=== PATIENT | female | born 1985 | race Caucasian/White ===

== ENCOUNTER → 2023-04-20 | Outpatient (OUT) | payer MEDICAID, SELFPAY | PROVIDERS: PCP Nurse Practitioner; Visit Provider Nurse Practitioner | DX: G47.33 Obstructive sleep apnea (adult) (pediatric) (principal) | CPT/HCPCS: 95810 ==

== ENCOUNTER 2023-05-19 20:47 | Outpatient (OUT) | payer MEDICAID, SELFPAY | END 2023-05-19 20:48 | disposition home or self-care (01) | LOC: SLEEP 20:48 | PROVIDERS: PCP Nurse Practitioner; Visit Provider Nurse Practitioner | DX: G47.33 Obstructive sleep apnea (adult) (pediatric) (principal) | CPT/HCPCS: 95811 ==

== ENCOUNTER 2024-04-05 10:19 | Outpatient (OUT) | payer OTHER, MEDICAID, SELFPAY ==
[2024-04-05 10:38] LABS: Bilirubin Urine NEGATIVE (NEGATIVE); Blood Urine SMALL (NEGATIVE); Clarity Urine CLEAR (CLEAR); Color Urine YELLOW (YELLOW); Glucose Urine UA NEGATIVE (NEGATIVE); Ketones Urine NEGATIVE (NEGATIVE); Leukocyte Esterase Urine NEGATIVE (NEGATIVE); Nitrite Urine NEGATIVE (NEGATIVE); Protein Urine NEGATIVE (NEG/TRACE); Specific Gravity Urine >=1.030 (1.005-1.025); Urine Microscopic Indicated YES; Urobilinogen Urine 0.2 EU/dL (0.2-1.0); pH Urine 5.5 (5.0-9.0)
[2024-04-05 10:42] LABS: Basophils Percent Auto 0.8 % (0.2-2.0); Eosinophils Absolute Auto 0.1 10^3/uL (0.0-0.7); Eosinophils Percent Auto 2.2 % (0.9-7.0); Hemoglobin 12.9 g/dL (12.0-16.0); Immature Granulocytes Abs Auto 0.01 10^3/uL (0.00-0.03); Immature Granulocytes Pct Auto 0.2 % (0.0-0.5); Lymphocytes Absolute Auto 2.1 10^3/uL (1.2-3.8); Lymphocytes Percent Auto 42.4 % (20.5-60.0); Mean Corpuscular HGB Conc 33.9 g/dL (29.9-35.2); Mean Corpuscular Hemoglobin 29.7 pg (26.7-34.0); Mean Corpuscular Volume 87.4 fL (81.0-99.0); Mean Platelet Volume 9.5 fL (9.5-13.5); Monocytes Absolute Auto 0.5 10^3/uL (0.3-0.8); Monocytes Percent Auto 10.8 % (1.7-12.0); Neutrophils Absolute Auto 2.1 10^3/uL (1.4-6.5); Neutrophils Percent Auto 43.6 % (43.0-75.0); Platelet Count 250 10^3/uL (150-450); Red Blood Count 4.35 10^6/uL (4.20-5.40); Red Cell Distribution Width 12.3 % (11.0-15.0); White Blood Count 4.9 10^3/uL (4.0-11.0)
[2024-04-05 10:49] LABS: Bacteria Urine SMALL #/HPF (NONE SEEN); Mucus Urine TRACE (NONE SEEN); Squamous Epithelial Cell Urine FEW #/LPF (NONE/RARE); WBC Urine NONE SEEN #/HPF (NONE SEEN)
[2024-04-05 10:50] LABS: Cast Seen? NONE SEEN #/LPF (NONE SEEN); Crystals Seen? None Seen #/HPF (None Seen)
[2024-04-05 12:20] LABS: Alanine Aminotransferase 27 U/L (14-59); Albumin Globulin Ratio 0.9; Albumin Level 3.3 g/dL (3.4-5.0); Alkaline Phosphatase 54 U/L (46-116); Anion Gap 11.3; Aspartate Amino Transferase 22 U/L (15-37); BUN Creatinine Ratio 19.2; Bilirubin Total 0.4 mg/dL (0.2-1.0); Calcium 8.7 mg/dL (8.5-10.1); Carbon Dioxide 27.4 mmol/L (21.0-32.0); Chloride 105 mmol/L (98-107); Chol HDL Ratio 3.8; Cholesterol 187 mg/dL (<=200); Estimated GFR (African America >60 (>=60); Estimated GFR (Non-African Ame >60 (>=60); Globulin 3.6 g/dL; Glucose 92 mg/dL (74-106); HDL Cholesterol 49 mg/dL (40-60); Potassium 3.7 mmol/L (3.5-5.1); Sodium 140 mmol/L (136-145); Thyroid Stimulating Hormone 2.088 uIU/mL (0.358-3.740); Total Protein 6.9 g/dL (6.4-8.2); Triglycerides 140 mg/dL (<=150)
== END 2024-04-05 10:20 | disposition home or self-care (01) ==
LOC: LAB 10:22
PROVIDERS: PCP Nurse Practitioner; Visit Provider Nurse Practitioner
DX: R00.2 Palpitations (principal); Z72.0 Tobacco use; F41.9 Anxiety disorder, unspecified; F32.A Depression, unspecified; Q21.12 Patent foramen ovale; E66.01 Morbid (severe) obesity due to excess calories
CPT/HCPCS: 36415; 80053; 80061; 81001; 84443; 85025

== ENCOUNTER 2024-05-14 11:10 | Outpatient (OUT) | payer OTHER, MEDICAID, SELFPAY ==
--- NOTE | 2024-05-14 11:13 | MM_ITS ---
Patient Name: CARLOTTA DIGGS MR#: [id number] : 1985 Exam Date: 05/14/2024 Ordering Doctor: CHARLIE KIMBLE CNP RADIOLOGY REPORT PROCEDURE: MM TOMOSYNTHESIS SCREENING BI COMPARISON: MG MAMM JONAS DIAG W CAD DIG, 08/01/2015. INDICATIONS: Screening Calculator Name NCI Breast Cancer Risk Assessment Tool 5 Year Breast Cancer Risk 0.40% Lifetime Breast Cancer Risk 7.30% Personal Breast Cancer No Personal Ovarian Cancer No Treatments None Family Cancers Grandmother-maternal with colon cancer at age ~75; Grandfather-paternal with lung/brain cancer at age ~82. LOCATION: [facility] BREAST COMPOSITION: There are scattered areas of fibroglandular density. FINDINGS: DIAGNOSTIC CATEGORY 1--NEGATIVE. RIGHT BREAST: No significant suspicious finding. LEFT BREAST: No significant suspicious finding. RECOMMENDATIONS: ROUTINE MAMMOGRAM AND CLINICAL EVALUATION IN 12 MONTHS. PLEASE NOTE: A NORMAL MAMMOGRAM DOES NOT EXCLUDE THE POSSIBILITY OF BREAST CANCER. A CLINICALLY SUSPICIOUS PALPABLE LUMP SHOULD BE BIOPSIED. Dictated by: Mahendra Aguilar M.D. on 05/15/2024 at 15:33 Approved by: Mahendra Aguilar M.D. on 05/15/2024 at 15:34
--- OUTSIDE RECORDS SUMMARY | 2024-05-14 11:24 | XMS_ITS ---
Patient Summarization (C-CDA 2.1 CCD) Created on: May 14, 2024 CARLOTTA DIGGS : 1985 Sex: Female Author Organization Sample organization Care Team Providers Care Management Department Chair Name Role Phone Unavailable Primary Care Provider Unavailabl e Aichholz HCARLIE, Afia Agnieszka Primary Care Provider Aichholz CHARLIE, Afia Agnieszka Primary Care Provider AICHHOLZ, FINGERPRINT CLASSIFIER AFIA Primary Care Unavailable KHOI PANDEY Consulting Unavailable ANKIT MONTEJO Admitting Unavailable ANKIT MONTEJO Attending Unavailable MARIA DE JESUS, DR SANTOS Lizarraga Admitting Unavailabl e AICHHOLZ, FINGERPRINT CLASSIFIER AFIA Primary Care Unavailable MARIA DE JESUS, DR SANTOS Lizarraga Attending Unavailabl e MARIA DE JESUS, DR SANTOS Lizarraga Consulting Unavailabl e OBIE BOWER Consulting Unavailable AICHHOLZ, FINGERPRINT CLASSIFIER AFIA Admitting Unavailable AICHHOLZ, FINGERPRINT CLASSIFIER AFIA Primary Care Unavailable AICHHOLZ, FINGERPRINT CLASSIFIER AFIA Attending Unavailable AICHHOLZ, FINGERPRINT CLASSIFIER AFIA Primary Care Unavailable TIMMIS, DR MENDEZ Admitting Unavailable TIMMIS, DR MENDEZ Attending Unavailable TIMMIS, DR MENDEZ Consulting Unavailable AICHHOLZ, FINGERPRINT CLASSIFIER AFIA Primary Care Unavailable TIMMIS, DR MENDEZ Admitting Unavailable TIMMIS, DR MENDEZ Attending Unavailable TIMMIS, DR MENDEZ Consulting Unavailable AGUBOSIM, NIRANJAN Consulting Unavailable JADE TRISTAN Consulting Unavailable MISC, DR VELARDE Admitting Unavailable AICHHOLZ, FINGERPRINT CLASSIFIER AFIA Primary Care Unavailable MISC, DR VELARDE Attending Unavailable MISC, DR VELARDE Consulting Unavailable AICHHOLZ, FINGERPRINT CLASSIFIER AFIA Consulting Unavailable AICHHOLZ, FINGERPRINT CLASSIFIER AFIA Primary Care Unavailable AICHHOLZ, FINGERPRINT CLASSIFIER AFIA Admitting Unavailable AICHHOLZ, FINGERPRINT CLASSIFIER AFIA Attending Unavailable Mahendra Aguilar Consulting Unavailable Aichholz FINGERPRINT CLASSIFIER, Afia Agnieszka Primary Care Provider UNGPRASERT, PATOMPONG Attending Unavailabl e SELF Referring Unavailable AICHHOLZ, AFIA AGNIESZKA Primary Care Unavailable AICHHOLZ, AFIA JO Primary Care Unavailable UNGPRASERT, PATOMPONG Referring Unavailabl e UNGPRASERT, PATOMPONG Attending Unavailabl e AICHHOLZ, AFIA AGNIESZKA Primary Care Unavailable Aichholz DIESEL ENGINE MECHANIC APPRENTICE, Afia Unavailable Ty Mai MD Primary Care Provider AICHHOLZ, AFIA Attending Unavailable TIMMIS, DALILA H Attending Unavailable NEGRO, FUNMILAYO A Attending Unavailable TIMMIS, DALILA H Referring Unavailable TIMMIS, DALILA H Attending Unavailable AICHHOLZ, AFIA Attending Unavailable AICHHOLZ, AFIA Attending Unavailable TIMMIS, DALILA H Attending Unavailable NEGRO, FUNMILAYO A Attending Unavailable TIMMIS, DALILA H Referring Unavailable TIMMIS, DALILA H Attending Unavailable AICHHOLZ, AFIA Attending Unavailable AICHHOLZ, AFIA Attending Unavailable Allergies Allergy Classification Reported Allergen(s) Allergy Type Date of Onset Reaction(s) Facility (1 source) Amoxicillin Drug Allergy [facility] Repository Encounters Encounter Date Encounter Type Care Provider Facility Start: 05-09-2024 End: 05-09-2024 ambulatory AFIA AICHHOLZ Not Available Start: 03-29-2024 End: 03-29-2024 ambulatory AFIA AICHHOLZ Not Available Start: 03-29-2024 End: 03-29-2024 ambulatory AFIA AICHHOLZ Not Available Start: 03-21-2024 End: 03-21-2024 ambulatory DALILA H TIMMIS Not Available Start: 03-21-2024 End: 03-21-2024 ambulatory DALILA H TIMMIS Not Available Start: 03-14-2024 End: 03-14-2024 ambulatory FUNMILAYO A NEGRO Not Available Start: 03-14-2024 End: 03-14-2024 ambulatory FUNMILAYO A NEGRO Not Available Start: 01-25-2024 End: 01-25-2024 ambulatory DALILA H TIMMIS Not Available Start: 01-25-2024 End: 01-25-2024 ambulatory DALILA H TIMMIS Not Available Start: 12-27-2023 End: 12-27-2023 ambulatory AFIA AICHHOLZ Not Available Start: 12-27-2023 End: 12-27-2023 Office outpatient visit 25 minutes Afia Figueroa DIESEL ENGINE MECHANIC APPRENTICE Work Phone: [facility] Comment on above: KYLE (obstructive sle ep apnea) (Primary Dx); Encounter for screening mammogram for malignant neoplasm of breast; Morbid (severe) obesity due to excess calories (E66.01); Body mass index [BMI] 40.0-44.9, adult (Z68.41); 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); Cervical pain (neck); Heart palpitations; Rheumatoid arthritis involving both hands with positive rheumatoid factor (CMS/HCC); Anxiety and depression (CMS/HCC); Other headache syndrome Start: 12-27-2023 End: 12-27-2023 ambulatory AFIA FIGUEROA Not Available Start: 12-27-2023 Bamboo flowsheet Afia Figueroa DIESEL ENGINE MECHANIC APPRENTICE Work Phone: [facility] Start: 12-27-2023 Bamboo flowsheet Afia Figueroa DIESEL ENGINE MECHANIC APPRENTICE Work Phone: [facility] Start: 12-23-2023 End: 12-23-2023 ambulatory PATCHASE MILLERPRASERT Facility:[facility] Start: 12-23-2023 End: 12-23-2023 Patient encounter procedure Chela Joseph MD Work Phone: Rheumatology Comment on above: Seropositive rheumat oid arthritis (HCC) (Primary Dx); High risk medication use Start: 10-10-2023 Refill Patchase doyle MD Work Phone: Rheumatology/Pulmonary Comment on above: Refill Request Start: 10-07-2023 Refill Patchase doyle MD Work Phone: Rheumatology/Pulmonary Comment on above: Refill Request Start: 07-07-2023 End: 07-08-2023 ambulatory AFIA FIGUEROA Facility:[facility] Start: 07-07-2023 End: 07-07-2023 Patient encounter procedure Patchase Joseph MD Work Phone: Rheumatology/Pulmonary Comment on above: Seropositive rheumat oid arthritis (HCC) (Primary Dx); High risk medication use; Trochanteric bursitis of left hip Start: 04-20-2023 ambulatory HCARLIE FIGUEROA Facil ity:[facility] Start: 10-14-2022 End: 10-14-[address] SANTOS PRETTY Facility:[facility] Start: 09-07-2022 End: 09-08-2022 ambulatory CHARLIE FIGUEROA Facility:[facility] Start: 08-11-2022 End: 08-11-2022 Patient encounter procedure Chela Joseph MD Work Phone: Rheumatology Comment on above: Trochanteric bursiti s of left hip (Primary Dx); Seropositive rheumatoid arthritis (HCC); High risk medication use Start: 06-28-2022 End: 06-29-[address] DOCTOR PERDOMO Facility:[facility] Start: 06-15-2022 End: 06-15-2022 ambulatory CHARLIE FIGUEROA Facility:[facility] Start: 06-12-2022 End: 06-12-2022 ambulatory CHARLIE FIGUEROA Facility:[facility] Start: 06-08-2022 Encounter for preprocedural laboratory examination DR DALILA MONTES [facility] Start: 06-07-2022 End: 06-08-2022 ambulatory CHARLIE FIGUEROA Facility:[facility] Start: 06-07-2022 End: 06-08-2022 Encounter for preprocedural laboratory examination CHARLIE FIGUEROA Facility:[facility] Start: 06-01-2022 Refill Chela doyle MD Work Phone: Rheumatology Start: 03-22-2022 Refill Chela doyle MD Work Phone: Rheumatology Comment on above: Refill Request Immunizations Immunization Date Immunization Notes Care Provider [facility] 03-24-2021 COVID-19 vaccine, ag e 12+ yr (PFIZER-BIONTECH - PURPLE TOP) Chela Joseph MD Work Phone: [facility] 03-05-2021 COVID-19 vaccine, ag e 12+ yr (PFIZER-BIONTECH - PURPLE TOP) Chela Joseph MD Work Phone: [facility] 01-09-2002 diphtheria, tetanus toxoids and acellular pertussis vaccine, unspecified formulation Chela Joseph MD Work Phone: [facility] 01-09-2002 haemophilus influenz ae type b conjugate and Hepatitis B vaccine Chela Joseph MD Work Phone: [facility] 01-09-2002 poliovirus vaccine, inactivated Chela Joseph MD Work Phone: [facility] 01-09-2002 hepatitis B vaccine, unspecified formulation Chela Joseph MD Work Phone: [facility] 07-09-1996 measles, mumps and rubella virus vaccine Chela Joseph MD Work Phone: [facility] 04-24-1987 diphtheria, tetanus toxoids and acellular pertussis vaccine, unspecified formulation Chela Joseph MD Work Phone: [facility] 03-15-1986 diphtheria, tetanus toxoids and pertussis vaccine Chela Joseph MD Work Phone: [facility] 03-15-1986 measles, mumps and rubella virus vaccine Chela Joseph MD Work Phone: [facility] 03-15-1986 trivalent poliovirus vaccine, live, oral Chela Joesph MD Work Phone: [facility] 04-07-1984 diphtheria, tetanus toxoids and pertussis vaccine Chela Joseph MD Work Phone: [facility] 04-07-1984 trivalent poliovirus vaccine, live, oral Chela Joseph MD Work Phone: [facility] 1985 diphtheria, tetanus toxoids and pertussis vaccine Chela Joseph MD Work Phone: [facility] 1985 trivalent poliovirus vaccine, live, oral Chela Joseph MD Work Phone: [facility] Medications Current Medications Medication Drug Class(es) Dates Sig (Normalized) Sig (Original) amitriptyline hydrochloride 25 mg oral tablet (5 sources) Tricyclic Antidepressant Start: 4 End: 4 take 1 tablet by mouth at bedtime amitriptyline (Elavil) 25 MG tablet Indications: Other headache syndrome Take 1 tablet (25 mg) by mouth at bedtime 30 tablet 5 12/27/2023 01/26/2024 Active atenolol 25 mg oral tablet (12 sources) beta-Adrenergic Machelle Start: 2 End: 4 take 1 tablet by mouth in the morning atenolol (Tenormin) 25 MG tablet Indications: Heart palpitations Take 1 tablet (25 mg) by mouth in the morning. Take 1 tablet by mouth in the morning.. 30 tablet 5 12/27/2023 01/26/2024 Active FLUoxetine 40 mg oral capsule (12 sources) Serotonin Reuptake Inhibitor Start: 4 End: 4 take 1 capsule by mouth in the morning FLUoxetine (PROzac) 40 MG capsule Indications: Anxiety and depression (CMS/HCC) Take 1 capsule (40 mg) by mouth in the morning. 30 capsule 5 12/27/2023 01/26/2024 Active Comment on above: Take 40 mg by mouth. folic acid 1 mg oral tablet (7 sources) Start: 2 End: 4 take 1 tablet by mouth once daily folic acid 1 mg tablet Indications: Seropositive rheumatoid arthritis (HCC) Take 1 tablet by mouth once daily. 90 tablet 3 07/07/2023 07/06/2024 Active Comment on above: Take 1 tablet by ventura th once daily. Take 1 mg by mouth o nce daily. hydroxychloroquine sulfate 200 mg oral tablet (11 sources) Antimalarial, Antirheumatic Agent Start: 2 End: 4 take 1 tablet by mouth twice daily hydrOXYchloroQUINE (PLAQUENIL) 200 mg tablet Indications: Seropositive rheumatoid arthritis (HCC) Take 1 tablet by mouth twice daily. 180 tablet 3 07/07/2023 07/06/2024 Active Comment on above: Take 1 tablet by ventura th twice daily. Take 200 mg by mouth twice daily. methotrexate 2.5 mg oral tablet (10 sources) Folate Analog Metabolic Inhibitor Start: End: take 6 tablets by mouth every week methotrexate 2.5 mg tablet Indications: Seropositive rheumatoid arthritis (HCC) Take 6 tablets by mouth one time a week. 72 tablet 3 07/07/2023 07/06/2024 Active methotrexate 2.5 MG tablet Take 15 mg by mouth 1 (one) time per week. 0 Active Comment on above: Take 6 tablets by mo [facility] one time a week. nitroglycerin 0.4 mg sublingual tablet (3 sources) Nitrate Vasodilator nitroglyceri n (Nitrostat) 0.[address] 1 tablet under the tongue every 5 (five) minutes if needed for chest pain (repeat in 5 minutes if no relief. Can take for a total of 3 times 5 minutes apart; if no relif and persistent chest pain seek emergency care.) 0 Active predniSONE 2.5 mg oral tablet (13 sources) Start: 12-23-19 End: 01-22-20 take 1 tablet by mouth once daily predniSONE (DELTASONE) 2.5 mg tablet Indications: Seropositive rheumatoid arthritis (HCC) Take 1 tablet by mouth once daily. 30 tablet 0 12/23/2023 01/22/2024 Active Start: 07-07-2023 End: 02-07-2024 take 1 tablet by mouth once daily predniSONE (DELTASONE) 5 mg tablet Indications: Seropositive rheumatoid arthritis (HCC) Take 1 tablet by mouth once daily. 120 tablet 0 10/10/2023 12/23/2023 Discontinued Start: 07-07-2023 End: 07-07-2023 take 1 tablet by mouth once daily predniSONE EC 5 mg Delayed Release Tab Indications: Seropositive rheumatoid arthritis (HCC) Take 1 tablet by mouth once daily. 90 tablet 0 07/07/2023 07/07/2023 Discontinued Start: 03-23-2022 End: 06-01-2023 take 1 tablet by mouth once daily predniSONE (DELTASONE) 5 mg tablet Indications: Seropositive rheumatoid arthritis (HCC) Take 1 tablet by mouth once daily. 90 tablet 3 06/01/2022 06/01/2023 Active Comment on above: Take 1 tablet by ventura once daily. Take 5 mg by mouth. tiZANidine 4 mg oral tablet (9 sources) Central alpha-2 Adrenergic Agonist Start: 06-26-2023 End: 01-26-2024 tiZANidine (Zanaflex) 4 MG tablet Indications: Other headache syndrome Take 1 tablet (4 mg) by mouth as needed at bedtime for muscle spasms 30 tablet 5 12/27/2023 01/26/2024 Active Completed/Discontinued Medications Medication Drug Class(es) Dates Sig (Normalized) Sig (Original) aspirin 81 mg delayed release oral tablet (7 sources) Platelet Aggregation Inhibitor, Nonsteroidal Anti-inflammatory Drug aspirin, enteric coated (ASPIRIN, ENTERIC COATED) 81 mg EC tablet q 24 HR. 0 Active Comment on above: q 24 HR. cholecalciferol, vitamin D3, (VITAMIN D3 ORAL) (7 sources) cholecalciferol, vitamin D3, (VITAMIN D3 ORAL) Take by mouth. 0 Active Comment on above: Take by mouth. gabapentin 100 mg oral capsule (10 sources) Anti-epileptic Agent Start: 06-27-2023 End: 01-26-2024 take 2 capsules by mouth at bedtime gabapentin (Neurontin) 100 MG capsule Indications: Other headache syndrome Take 2 capsules (200 mg) by mouth at bedtime 60 capsule 2 12/20/2023 12/27/2023 Discontinued (Reorder) Start: 11-27-2021 gabapentin (NE URONTIN) 100 mg capsule Comment on above: Take 200 mg by mouth daily at bedtime. 10 ml lidocaine hydrochloride 10 mg/ml injection (1 source) Antiarrhythmic, Amide Local Anesthetic Start: 08-11-2022 End: 08-11-2022 lidocaine (PF) 10 mg/mL (1 %) 2 mL injection (XYLOCAINE) Start: 08-11-2022 End: 08-11-2022 lidocaine (PF) 10 mg/mL (1 % ) 2 mL injection (XYLOCAINE) meloxicam 15 mg oral tablet (1 source) Nonsteroidal Anti-inflammatory Drug Start: 11-27-2021 meloxicam (MOBIC) 15 mg tablet 1 ml methylPREDNISolone acetate 80 mg/ml injection (1 source) Corticosteroid Start: 08-11-2022 End: 08-11-2022 methylPREDNISolone acetate 80 mg injection (DEPO-Medrol) Start: 08-11-2022 End: 08-11-2022 methylPREDNISolone acetate 8 0 mg injection (DEPO-Medrol) omega-3s/dha/epa/fish oil (O MEJIA 3 ORAL) (4 sources) End: 07-07-2023 omega-3s/dha/epa/fish oil (OMEGA 3 ORAL) Take by mouth. 0 07/07/2023 Discontinued omega-3s/dha/epa /fish oil (OMEGA 3 ORAL) Take by mouth. 0 Active Comment on above: Take by mouth. phentermine hydrochloride 37.5 mg oral capsule (1 source) Sympathomimetic Amine Anorectic Start: 02-23-2022 End: 06-01-2022 Phentermine HCl (ADIPEX-P) 37.5 mg capsule Payers Date Payer Category Payer Private Health Insurance [facility] [id number] 2023-Present [address] [address] [place] [address] [id number] 2023 Private Health Insurance [id number] 2022 Medicaid [id number] 2022 Medicaid [id number] 2021 Medicaid [employer] [id number] 2021-Present [phone] [address] [place] [address] Medicaid [id number] 2021 Medicaid [id number] 1985 Unknown [id number] [id number]. 593 1985 Unknown [id number] [id number]. 593 1983 Unknown [id number] 2.16.840.1.631787.3.579.2. 593 1983 Unknown [id number] 2.16.840.1.238555.3.579.2. 593 1983 Unknown [id number] 2.16.840.1.963107.3.579.2. 593 1983 Unknown [id number] 2.16.840.1.103056.3.579.2. 593 1983 Unknown [id number] 2.16.840.1.318949.3.579.2. 593 1983 Unknown [id number] 2.16.840.1.693931.3.579.2. 1258 1983 Unknown [id number] 2.16.840.1.398095.3.579.2. 1258 1983 Unknown [id number] 2.16.840.1.646377.3.579.2. 1258 1983 Unknown [id number] 2.16.840.1.598149.3.579.2. 1258 1983 Unknown [id number] 2.16.840.1.111804.3.579.2. 1258 1983 Unknown [id number] 2.16.840.1.903593.3.579.2. 1258 1983 Unknown [id number] [id number]. 9 1961 Private Health Insurance [id number] 1961 Unknown [id number] Plan of Treatment Date Care Activity Detail Author Start: 06-25-2024 End: 09-24-2024 Alanine aminotransferase [Enzymatic activity/volume] in Serum or Plasma ALT/SGPT Lab Routine Seropositive rheumatoid arthritis (HCC) Expected: 06/25/2024 (Approximate), Expires: 09/24/2024 [facility] Work Phone: Comment on above: Expected: 06/25/2024 (Approximate), Expires: 09/24/2024 Start: 06-25-2024 End: 09-24-2024 Aspartate aminotransferase [Enzymatic activity/volume] in Serum or Plasma AST/SGOT BLD Lab Routine Seropositive rheumatoid arthritis (HCC) Expected: 06/25/2024 (Approximate), Expires: 09/24/2024 [facility] Work Phone: Comment on above: Expected: 06/25/2024 (Approximate), Expires: 09/24/2024 Start: 06-25-2024 End: 09-24-2024 C reactive protein [Mass/volume] in Serum or Plasma C-REACTIVE PROTEIN (CRP) Lab Routine Seropositive rheumatoid arthritis (HCC) Expected: 06/25/2024 (Approximate), Expires: 09/24/2024 [facility] Work Phone: Comment on above: Expected: 06/25/2024 (Approximate), Expires: 09/24/2024 Start: 06-25-2024 End: 09-24-2024 CBC W Auto Differential panel - Blood CBC + DIFF Lab Routine Seropositive rheumatoid arthritis ([facility]) Expected: 06/25/2024 (Approximate), Expires: 09/24/2024 [facility] Work Phone: Comment on above: Expected: 06/25/2024 (Approximate), Expires: 09/24/2024 Start: 06-25-2024 End: 09-24-2024 CREATININE BLD CREATININE BLD Lab Routine Seropositive rheumatoid arthritis (HCC) Expected: 06/25/2024 (Approximate), Expires: 09/24/2024 [facility] Work Phone: Comment on above: Expected: 06/25/2024 (Approximate), Expires: 09/24/2024 Start: 06-25-2024 End: 09-24-2024 Erythrocyte sedimentation rate SED RATE WESTERGREN Lab Routine Seropositive rheumatoid arthritis ([facility]) Expected: 06/25/2024 (Approximate), Expires: 09/24/2024 [facility] Work Phone: Comment on above: Expected: 06/25/2024 (Approximate), Expires: 09/24/2024 Start: 06-25-2024 End: 09-24-2024 Urea nitrogen [Mass/volume] in Serum or Plasma BUN BLOOD Lab Routine Seropositive rheumatoid arthritis (HCC) Expected: 06/25/2024 (Approximate), Expires: 09/24/2024 [facility] Work Phone: Comment on above: Expected: 06/25/2024 (Approximate), Expires: 09/24/2024 Start: 04-26-2024 End: 04-26-2024 Patient encounter procedure 04/26/2024 3:00 PM EDT Office Visit [facility] [address] [place] [address] Afia Figueroa NP [address] [place] [phone] [facility] Start: 01-25-2024 End: 01-25-2024 Patient encounter procedure 01/25/2024 2:20 PM EDT Office Visit [facility] [address] [place] [id number] Dalila Montes MD [address] [place] [address] [facility] Start: 12-27-2023 End: 12-27-2023 Patient encounter procedure 12/27/2023 3:00 PM EST Office Visit [facility] [address] [place] [address] Afia Figueroa NP [address] [place] [phone] Encounter for screening mammogram for malignant neoplasm of breast (Primary Dx) [facility] Comment on above: Encounter for screen ing mammogram for malignant neoplasm of breast (Primary Dx) Start: 12-27-2023 End: 02-24-2025 MG Breast - bilateral Screening Bilateral screening mammogram Imaging Routine Encounter for screening mammogram for malignant neoplasm of breast Expected: 12/27/2023 (Approximate), Expires: 02/24/2025 [facility] Work Phone: Comment on above: Expected: 12/27/2023 (Approximate), Expires: 02/24/2025 Start: 11-14-2023 Depression Assessment Depression Ass essment [facility] Start: 2023 Mammography Mammogram Screening [facility] Start: 2023 Screening for malign ant neoplasm of breast [facility] Start: 07-15-2023 Influenza vaccination [facility] Start: 04-05-2023 Adult depression scr eening assessment DEPRESSION SCREENING [facility] Start: 11-14-2022 DEPRESSION ASSESSMENT DEPRESSION ASS ESSMENT [facility] Start: 07-15-2022 Influenza vaccination [facility] Start: 06-29-2022 End: 08-29-2022 Alanine aminotransferase [Enzymatic activity/volume] in Serum or Plasma ALT/SGPT Lab Routine Seropositive rheumatoid arthritis (HCC) Expected: 06/29/2022 (Approximate), Expires: 08/29/2022 [facility] Work Phone: Comment on above: Expected: 06/29/2022 (Approximate), Expires: 08/29/2022 Start: 06-29-2022 End: 08-29-2022 Aspartate aminotransferase [Enzymatic activity/volume] in Serum or Plasma AST/SGOT BLD Lab Routine Seropositive rheumatoid arthritis (HCC) Expected: 06/29/2022 (Approximate), Expires: 08/29/2022 [facility] Work Phone: Comment on above: Expected: 06/29/2022 (Approximate), Expires: 08/29/2022 Start: 06-29-2022 End: 08-29-2022 C reactive protein [Mass/volume] in Serum or Plasma C-REACTIVE PROTEIN (CRP) Lab Routine Seropositive rheumatoid arthritis (HCC) Expected: 06/29/2022 (Approximate), Expires: 08/29/2022 [facility] Work Phone: Comment on above: Expected: 06/29/2022 (Approximate), Expires: 08/29/2022 Start: 06-29-2022 End: 08-29-2022 CBC W Auto Differential panel - Blood CBC + DIFF Lab Routine Seropositive rheumatoid arthritis (HCC) Expected: 06/29/2022 (Approximate), Expires: 08/29/2022 [facility] Work Phone: Comment on above: Expected: 06/29/2022 (Approximate), Expires: 08/29/2022 Start: 06-29-2022 End: 08-29-2022 CREATININE BLD CREATININE BLD Lab Routine Seropositive rheumatoid arthritis (HCC) Expected: 06/29/2022 (Approximate), Expires: 08/29/2022 [facility] Work Phone: Comment on above: Expected: 06/29/2022 (Approximate), Expires: 08/29/2022 Start: 06-29-2022 End: 08-29-2022 Erythrocyte sedimentation rate SED RATE WESTERGREN Lab Routine Seropositive rheumatoid arthritis (HCC) Expected: 06/29/2022 (Approximate), Expires: 08/29/2022 [facility] Work Phone: Comment on above: Expected: 06/29/2022 (Approximate), Expires: 08/29/2022 Start: 06-29-2022 End: 08-29-2022 Urea nitrogen [Mass/volume] in Serum or Plasma BUN BLOOD Lab Routine Seropositive rheumatoid arthritis (HCC) Expected: 06/29/2022 (Approximate), Expires: 08/29/2022 [facility] Work Phone: Comment on above: Expected: 06/29/2022 (Approximate), Expires: 08/29/2022 Start: 11-14-2021 DEPRESSION ASSESSMENT DEPRESSION ASS ESSMENT [facility] Start: 04-21-2021 COVID-19 VACCINE (3 - Pfizer risk series) COVID-19 VACCINE (3 - Pfizer risk series) [facility] Start: 2013 HPV TESTING HPV TESTING [facility] Start: 2013 Screening for malign ant neoplasm of cervix [facility] Start: 01-09-2012 Urine microalbumin profile [facility] Start: 2004 PAP TESTING PAP TESTING [facility] Start: 2004 Screening for malign ant neoplasm of cervix [facility] Start: 2002 SHINGRIX VACCINE (1 of 2) MALLOY GRIX VACCINE (1 of 2) [facility] Start: 02-06-2002 HEPATITIS B (2 of 3 - 3-dose series) HEPATITIS B (2 of 3 - 3-dose series) [facility] Start: 02-06-2002 Hepatitis B Vaccine (2 of 3 - 3-dose series) Hepatitis B Vaccine (2 of 3 - 3-dose series) [facility] Start: 2001 HIV SCREENING HIV SCREENING [facility] Start: 2001 HIV screening HIV Screening [facility] Start: 1995 Adult depression scr eening assessment DEPRESSION SCREENING [facility] Start: 1989 PNEUMOCOCCAL (1 - PCV) PNEUMOCOCCAL (1 - PCV) [facility] Start: 1989 Pneumococcal vaccination [facility] End: 07-06-2024 Alanine aminotransferase [Enzymatic activity/volume] in Serum or Plasma ALT/SGPT Lab Routine Seropositive rheumatoid arthritis (HCC) Every 3 months for 4 Occurrences starting 07/07/2023 until 07/06/2024, 1 completed [facility] Work Phone: Comment on above: Every 3 months for 4 Occurrences starting 07/07/2023 until 07/06/2024, 1 completed End: 07-06-2024 Aspartate aminotransferase [Enzymatic activity/volume] in Serum or Plasma AST/SGOT BLD Lab Routine Seropositive rheumatoid arthritis (HCC) Every 3 months for 4 Occurrences starting 07/07/2023 until 07/06/2024, 1 completed [facility] Work Phone: Comment on above: Every 3 months for 4 Occurrences starting 07/07/2023 until 07/06/2024, 1 completed End: 07-06-2024 C reactive protein [Mass/volume] in Serum or Plasma C-REACTIVE PROTEIN (CRP) Lab Routine Seropositive rheumatoid arthritis (HCC) Every 3 months for 4 Occurrences starting 07/07/2023 until 07/06/2024, 1 completed [facility] Work Phone: Comment on above: Every 3 months for 4 Occurrences starting 07/07/2023 until 07/06/2024, 1 completed End: 07-06-2024 CBC W Auto Differential panel - Blood CBC + DIFF Lab Routine Seropositive rheumatoid arthritis (HCC) Every 3 months for 4 Occurrences starting 07/07/2023 until 07/06/2024, 1 completed [facility] Work Phone: Comment on above: Every 3 months for 4 Occurrences starting 07/07/2023 until 07/06/2024, 1 completed End: 07-06-2024 CREATININE BLD CREATININE BLD Lab Routine Seropositive rheumatoid arthritis (HCC) Every 3 months for 4 Occurrences starting 07/07/2023 until 07/06/2024, 1 completed [facility] Work Phone: Comment on above: Every 3 months for 4 Occurrences starting 07/07/2023 until 07/06/2024, 1 completed End: 07-06-2024 Erythrocyte sedimentation rate SED RATE WESTERGREN Lab Routine Seropositive rheumatoid arthritis (HCC) Every 3 months for 4 Occurrences starting 07/07/2023 until 07/06/2024, 1 completed [facility] Work Phone: Comment on above: Every 3 months for 4 Occurrences starting 07/07/2023 until 07/06/2024, 1 completed End: 07-06-2024 Urea nitrogen [Mass/volume] in Serum or Plasma BUN BLOOD Lab Routine Seropositive rheumatoid arthritis (HCC) Every 3 months for 4 Occurrences starting 07/07/2023 until 07/06/2024, 1 completed [facility] Work Phone: Comment on above: Every 3 months for 4 Occurrences starting 07/07/2023 until 07/06/2024, 1 completed [facility] Problems Active Problems Problem Classification Problem Date Documented Date Episodic/Chronic Anxiety disorders (5 sources) Mixed anxiety and depressive disorder; Translations: [Anxiety disorder, unspecified] Onset: 12-27-2023 12-27-2023 Chronic Cardiac and circulatory congenital anomalies (3 sources) Patent foramen ovale; Translations: [PFO (patent foramen ovale)] Onset: 12-27-2023 12-27-2023 Chronic Cardiac dysrhythmias (5 sources) Palpitations; Translations: [Palpitations] Onset: 12-27-2023 12-27-2023 Episodic Headache; including migraine (1 source) Migraine, unspecified, not intractable, without status migrainosus; Translations: [MIGRAINE UNS NOT INTRACT W/O SM] Onset: 06-15-2022 Chronic Headache; including migraine (5 sources) Headache disorder; Translations: [Other headache syndrome] Onset: 12-20-2023 12-20-2023 Episodic Headache; including migraine (4 sources) Headache; including migraine; Translations: [HEADACHE UNSPECIFIED] Onset: 10-14-2022 Immunity disorders (2 sources) Drug-induced immunodeficiency ; Translations: [Immunodeficiency due to drugs ([facility])] 12-27-2023 Chronic Other aftercare (1 source) Encounter for adjustment or removal of myringotomy device (stent) (tube); Translations: [ENC ADJUST/REMV MYRINGOT DEVC STENT] Onset: 07-29-2022 Chronic Other aftercare (3 sources) Taking high risk medication; Translations: [Other pre school manager (current) drug therapy] Episodic Other connective tissue disease (2 sources) Trochanteric bursitis of left hip; Translations: [Trochanteric bursitis, left hip] Episodic Other ear and sense organ disorders (3 sources) Conductive hearing loss, bilateral; Translations: [Conductive hearing loss, bilateral] Onset: 12-27-2023 12-27-2023 Chronic Other nutritional; endocrine; and metabolic disorders (2 sources) Obesity caused by energy imbalance; Translations: [Morbid (severe) obesity due to excess calories] 12-27-2023 Chronic Other nutritional; endocrine; and metabolic disorders (2 sources) Body mass index 40+ - severely obese; Translations: [Body mass index (BMI) 40.0-44.9, adult] 12-27-2023 Chronic Other screening for suspected conditions (not mental disorders or infectious disease) (5 sources) Patient encounter status; Translations: [Encounter for screening mammogram for malignant neoplasm of breast] Onset: 12-27-2023 12-27-2023 Episodic Residual codes; unclassified (5 sources) Obstructive sleep apnea syndrome; Translations: [Obstructive sleep apnea (adult) (pediatric)] Onset: 12-27-2023 12-27-2023 Chronic Residual codes; unclassified (3 sources) Tobacco user; Translations: [Tobacco use] Onset: 12-27-2023 12-27-2023 Episodic Rheumatoid arthritis and related disease (17 sources) Seropositive rheumatoid arthritis; Translations: [Rheumatoid arthritis with rheumatoid factor, unspecified] Onset: 06-28-2022 Chronic Spondylosis; intervertebral disc disorders; other back problems (1 source) Other cervical disc degeneration at C4-C5 level; Translations: [OTHER CERVICAL DISC DEG C4-C5 LEVEL] Onset: 09-12-2022 Chronic Spondylosis; intervertebral disc disorders; other back problems (9 sources) Cervicalgia; Translations: [Neck pain] Onset: 09-07-2022 Episodic Viral infection (3 sources) Disease caused by 2019-nCoV; Translations: [COVID-19] Onset: 10-26-2023 10-26-2023 Episodic Past or Other Problems Problem Classification Problem Date Documented Da te Episodic/Chronic Ectopic (3 sources) Tubal ; Translations: [Unspecified tubal without intrauterine ] Onset: 12-27-2023 Resolved: 12-27-2023 12-27-2023 Episodic Other aftercare (1 source) commodities clerk (current) use of aspirin; Translations: [ALF CURRENT USE OF ASPIRIN] Onset: 10-17-2022 Episodic Other aftercare (1 source) Other pre school manager (current) drug therapy; Translations: [OTH SAND CAR WORKER CURRENT DRUG THERAPY] Onset: 10-17-2022 Episodic Other ear and sense organ disorders (3 sources) Cholesteatoma; Translations: [Unspecified cholesteatoma, unspecified ear] Onset: 02-21-2013 12-27-2023 Episodic Other eye disorders (1 source) Ocular pain, left eye; Translations: [OCULAR PAIN LEFT EYE] Onset: 10-17-2022 Episodic Other injuries and conditions due to external causes (1 source) Foreign body in right ear, initial encounter; Translations: [FOREIGN BODY RT EAR INITIAL ENCNTR] Onset: 06-08-2022 Episodic Other non-traumatic joint disorders (3 sources) Joint pain in right hand; Translations: [Pain in joints of right hand] Onset: 12-27-2023 Resolved: 12-27-2023 12-27-2023 Episodic Otitis media and related conditions (8 sources) Other specified disorders of Eustachian tube, bilateral; Translations: [Perforation of right tympanic membrane] Onset: 06-08-2022 Resolved: 12-27-2023 Episodic Screening and history of mental health and substance abuse codes (1 source) Personal history of nicotine dependence; Translations: [PERSONAL HISTORY OF NICOTINE DEPEND] Onset: 10-17-2022 Episodic Procedures Date Procedure Procedure Detail Performing Clinician Start: 08-11-2022 Arthrocentesis aspir &/inj major jt/bursa w/o Chela Joseph MD Work Phone: Start: 04-05-2022 Adult depression scr eening assessment Chela Joseph MD Work Phone: Results Test Name Value Interpretation Reference Range Facility [facility] 12-23-2023 CNOV Office Visit (RHEUMN ) CARLOTTA DIGGS ([id number]) 1985 F Date Time Provider Department 12/23/23 8:30 AM CHELA JOSEPH [facility]HE[facility]Basim During your visit today, we recorded the following information about you: Temperature Pulse Blood pressure Weight 97.5 degrees 66/minute 115/72 108.8 kg Height 1.626 m Chela Joseph MD 12/23/2023 9:02 AM Signed MD Carlotta Moyer December 22, 2023 Referring Provider:Self PCP: Afia Figueroa, FINGERPRINT CLASSIFIER, FINGERPRINT CLASSIFIER Chief Complaint: Patient presents with: Joint Pain Background Rheumatologic History: I first saw her 12/11/21 She started to have pain in her right hand associated with swelling about 4 months ago. The pain is usually active worse in the morning associated with at least an hour of morning stiffness. The pain later spread to the left hand, both knees, both feet and both ankles. She has been using meloxicam with no benefit. About 2 weeks ago, her primary care doctor decided to put her on low-dose prednisone. It has been helping. Her pain is down by 50%. She complains of facial erythema but no rash anywhere else. No inflammatory eye disease or inflammatory bowel disease. The patient denies family history of RA, SLE, , psoriasis, IBD, uveitis, other autoimmune diseases. Labs + CARINA RF > 650 CCP 65 Elevated sed rate I started HCQ and lower pred to 5 mg. F/U 04/09/22 Significantly better. I stopped pred and continued HCQ. MyChart 05/28/22 Flare. Started MTX. Restarted pred 5 mg. F/U 08/11/22 I think her rheumatoid arthritis is in remission today. Examination does not reveal any evidence of active synovitis. Surveillance labs from last month were also unremarkable. I will continue the current treatment with methotrexate, Plaquenil and prednisone 5 mg daily. Her hip pain is caused by trochanteric bursitis. I will do cortisone injection for her today. F/U 07/07/23 She did not return for follow-up in December but continue to take her medications. She continued to do well without peripheral joint pain (except for the pain from bursitis) until she ran out of her Plaquenil and prednisone (about a month ago) that her hand and foot pain and swelling started to act up again. Her rheumatoid arthritis is active again today. This is not surprising given that she ran out of her medications a month ago. I will refill of the medications for her today including low-dose steroid. If her RA improved by next visit, I plan to gradually taper her prednisone down. Interim History: Patient returns for follow up, last visit 08/11/2022. She has been doing well since she is back on treatment. Pain and swelling are gone. She already did eye exam. No past medical history on file. No past surgical history on file. Social History Tobacco Use Smoking status: Never Smokeless tobacco: Never Health Maintenance Pneumococcal Vaccine(1 of 2 - PCV) Never done HIV Screening Never done Hepatitis B Vaccine(2 of 3 - 3-dose series) due on 02/06/2002 Shingrix Vaccine(1 of 2) Never done Pap Testing Never done DTaP,Tdap,Td Vaccine(6 - Tdap) due on 01/09/2012 HPV Testing Never done Covid-19 Vaccine(3 - Pfizer risk series) due on 04/21/2021 Influenza Vaccine(1) Never done Mammogram Screening Never done Depression Assessment Never done Immunization History Administered Date(s) Administered COVID-19 original vaccine, age 12+ yr, monovalent (SumUp - PURPLE TOP) 03/05/2021 03/24/2021 Haemophilus influenzae b-hepatitis B (Hib-HepB) vaccine (COMVAX) 01/09/2002 diphtheria tetanus pertussis (DTP) vaccine 1985 04/07/1984 03/15/1986 diphtheria tetanus pertussis (DTaP) vaccine, unspecified formulation 04/24/1987 01/09/2002 measles mumps rubella (MMR) vaccine (M-M-R II, PRIORIX) 03/15/1986 07/09/1996 poliovirus (IPV) vaccine, inactivated (IPOL) 01/09/2002 poliovirus (OPV) vaccine, trivalent, live, oral (ORIMUNE) 1985 04/07/1984 03/15/1986 Current Outpatient Medications Medication Sig Dispense Refill gabapentin (NEURONTIN) 100 mg capsule Take 200 mg by mouth daily at bedtime. tiZANidine (ZANAFLEX) 4 mg tablet hydrOXYchloroQUINE (PLAQUENIL) 200 mg tablet Take 1 tablet by mouth twice daily. 180 tablet 3 methotrexate 2.5 mg tablet Take 6 tablets by mouth one time a week. 72 tablet 3 folic acid 1 mg tablet Take 1 tablet by mouth once daily. 90 tablet 3 atenolol (TENORMIN) 25 mg tablet FLUoxetine HCl (PROZAC) 40 mg capsule Take 40 mg by mouth. aspirin, enteric coated (ASPIRIN, ENTERIC COATED) 81 mg EC tablet q 24 HR. cholecalciferol, vitamin D3, (VITAMIN D3 ORAL) Take by mouth. predniSONE (DELTASONE) 2.5 mg tablet Take 1 tablet by mouth once daily. 30 tablet 0 No current facility-administered medications for this visit. ALLERGIES No Known Allergies Physical Exam: BP 115/72 Pulse 66 Temp (Src) 97. (more content not included)... Normal [facility] ALT SerPl-cCncon 07-07-2023 ALT [Catalytic activity/Vol] 25 U/L Normal 7-38 [facility] Comment on above: Order Comment: Speci men Type: BLOOD SPECIMEN Ordering Facility: [facility] Address: [address] [place] [id number] Performed By: #### 1 742-6, 3094-0, CRET1, 0-8, 1987- #### [facility] CLIA [id number] [address] [address] [place] ALT/SGPTon 07-07-2023 ALT [Catalytic activity/Vol] 25 U/L 7 - 38 U/L [facility] AST SerPl-cCncon 07-07-2023 AST [Catalytic activity/Vol] 23 U/L Normal 13-35 [facility] Comment on above: Order Comment: Speci men Type: BLOOD SPECIMEN Ordering Facility: [facility] Address: [address] [place] [address] Performed By: #### 1 742-6, 3094-0, CRET1, 1920-06, 1988-03 #### [facility] CLIA [id number] [address] [place] [address] [place] AST/SGOT BLDon 07-07-2023 AST [Catalytic activity/Vol] 23 U/L 13 - 35 U/L [facility] BUN BLOODon 07-07-2023 Urea nitrogen [Mass/Vol] 16 mg/dL 7 - 21 mg/dL [facility] BUN SerPl-mCncon 07-07-2023 Urea nitrogen [Mass/Vol] 16 mg/dL Normal 7-21 [facility] Comment on above: Order Comment: Speci men Type: BLOOD SPECIMEN Ordering Facility: [facility] Address: [address] Performed By: #### 1 742-6, 3094-0, CRET1, 1920-06, 1988-03 #### [facility] CLIA [id number] [address] [place] [address] [place] C-REACTIVE PROTEIN (CRP)on 0 07-07-2023 CRP [Mass/Vol] 0.4 mg/dL <0.9 mg/dL [facility] CBC W Auto Differential pane l (Bld)on 07-07-2023 Basophils (Bld) [#/Vol] 0.04 10*3/uL Normal <0.11 [facility] Comment on above: Order Comment: Speci men Type: BLOOD SPECIMEN Ordering Facility: [facility] Address: [address] [address] Performed By: #### 5 7021-8, 4537-7 #### [facility] CLIA [id number] [address] [place] [address] [place] Basophils/100 WBC (Bld) 0.5 % Normal [facility] Comment on above: Order Comment: Speci men Type: BLOOD SPECIMEN Ordering Facility: [facility] Address: [address] Performed By: #### 5 7021-8, 7-7 #### [facility] CLIA [id number] [address] [place] [address] [place] Differential cell count method Nom (Bld) Auto Normal [facility] Comment on above: Order Comment: Speci men Type: BLOOD SPECIMEN Ordering Facility: [facility] Address: [address] [place], [place] [id number] Performed By: #### 5 7021-8, 4536-7 #### [facility] CLIA [id number] [address] [place] [address] [place] Eosinophils (Bld) [#/Vol] 0.13 10*3/uL Normal <0.46 [facility] Comment on above: Order Comment: Speci men Type: BLOOD SPECIMEN Ordering Facility: [facility] Address: [address] [place], [place] [id number] Performed By: #### 5 7021-8, 4536-7 #### [facility] CLIA [id number] [address] [place] [address] [place] Eosinophils/100 WBC (Bld) 1.5 % Normal [facility] Comment on above: Order Comment: Speci men Type: BLOOD SPECIMEN Ordering Facility: [facility] Address: [address] [place], [place] [id number] Performed By: #### 5 7021-8, 4536-7 #### [facility] CLIA [id number] [address] [place] [address] [place] Erythrocyte distribution width (RBC) [Ratio] 12.6 % Normal 11.5-15.0 [facility] Comment on above: Order Comment: Speci men Type: BLOOD SPECIMEN Ordering Facility: [facility] Address: [address] Performed By: #### 5 7021-8, 7-7 #### [facility] CLIA [id number] [address] [place] [address] [place] Hematocrit (Bld) [Volume fraction] 41.4 % Normal 36.0-46.0 [facility] Comment on above: Order Comment: Speci men Type: BLOOD SPECIMEN Ordering Facility: [facility] Address: [address] [place] [address] Performed By: #### 5 7021-8, 4537-7 #### [facility] CLIA [id number] [address] [place] [address] [place] Hemoglobin (Bld) [Mass/Vol] 14.2 g/dL Normal 11.5-15.5 [facility] Comment on above: Order Comment: Speci men Type: BLOOD SPECIMEN Ordering Facility: [facility] Address: [address] [place] [address] Performed By: #### 5 7021-8, 4537-7 #### [facility] CLIA [id number] [address] [place] [address] [place] Immature granulocytes (Bld) [#/Vol] 0.04 10*3/uL Normal <0.10 [facility] Comment on above: Order Comment: Speci men Type: BLOOD SPECIMEN Ordering Facility: [facility] Address: [address] [place], [place] [id number] Performed By: #### 5 7021-8, 4537-7 #### [facility] CLIA [id number] [address] [place] [address] [place] Immature granulocytes/100 WBC (Bld) 0.5 % Normal [facility] Comment on above: Order Comment: Speci men Type: BLOOD SPECIMEN Ordering Facility: [facility] Address: [address] [place], [place] [phone] Performed By: #### 5 7021-8, 4537-7 #### [facility] CLIA [id number] [address] [place] [address] [place] Lymphocytes (Bld) [#/Vol] 2.82 10*3/uL Normal 1.00-4.00 [facility] Comment on above: Order Comment: Speci men Type: BLOOD SPECIMEN Ordering Facility: [facility] Address: [address] [place], [place] [phone] Performed By: #### 5 7021-8, 453-7 #### [facility] CLIA [id number] [address] [place] [address] [place] [facility] Lymphocytes/100 WBC (Bld) 32.4 % Normal [facility] Comment on above: Order Comment: Speci men Type: BLOOD SPECIMEN Ordering Facility: [facility] Address: [address] [place], [place] [id number] Performed By: #### 5 7021-8, 453-7 #### [facility] CLIA [id number] [address] [place] [address] [place] MCH (RBC) [Entitic mass] 31.3 pg Normal 26.0-34.0 [facility] Comment on above: Order Comment: Speci men Type: BLOOD SPECIMEN Ordering Facility: [facility] Address: [address] [place], [place] [id number] Performed By: #### 5 7021-8, 7 #### [facility] CLIA [id number] [address] [place] [address] STATES OF [facility] MCHC (RBC) [Mass/Vol] 34.3 g/dL Normal 30.5-36.0 [facility] Comment on above: Order Comment: Speci men Type: BLOOD SPECIMEN Ordering Facility: [facility] Address: [address] [place], [place] [id number] Performed By: #### 5 7021-8, 4537-7 #### [facility] CLIA [id number] [address] [place] [address] [place] MCV (RBC) [Entitic vol] 91.4 fL Normal 80.0-100.0 [facility] Comment on above: Order Comment: Speci men Type: BLOOD SPECIMEN Ordering Facility: [facility] Address: [address] [place] [address] Performed By: #### 5 7021-8, 7-7 #### [facility] CLIA [id number] [address] [place] [address] [place] Monocytes (Bld) [#/Vol] 0.86 10*3/uL Normal <0.87 [facility] Comment on above: Order Comment: Speci men Type: BLOOD SPECIMEN Ordering Facility: [facility] Address: [address] Performed By: #### 5 7021-8, 4536-7 #### [facility] CLIA [id number] [address] [place] [address] [place] Monocytes/100 WBC (Bld) 9.9 % Normal [facility] Comment on above: Order Comment: Speci men Type: BLOOD SPECIMEN Ordering Facility: [facility] Address: [address] Performed By: #### 5 7021-8, 4536-7 #### [facility] CLIA [id number] [address] [place] [address] [place] Neutrophils (Bld) [#/Vol] 4.82 10*3/uL Normal 1.45-7.50 [facility] Comment on above: Order Comment: Speci men Type: BLOOD SPECIMEN Ordering Facility: [facility] Address: [address] [place] [address] Performed By: #### 5 7021-8, 4536-7 #### [facility] CLIA [id number] [address] [place] [address] [place] Neutrophils/100 WBC (Bld) 55.2 % Normal [facility] Comment on above: Order Comment: Speci men Type: BLOOD SPECIMEN Ordering Facility: [facility] Address: [address] Performed By: #### 5 7021-8, 7-7 #### [facility] CLIA [id number] [address] [place] [address] [place] Nucleated RBC (Bld) [#/Vol] <0.01 k/uL [facility] Nucleated RBC (Bld) [#/Vol] 10*3/uL Normal <0.01 [facility] Comment on above: Order Comment: Speci men Type: BLOOD SPECIMEN Ordering Facility: [facility] Address: [address] [place], [place] [id number] Performed By: #### 5 7021-8, 453-7 #### [facility] CLIA [id number] [address] [place] [address] [place] Nucleated RBC/100 WBC (Bld) [Ratio] 0.0 /100 WBC Normal [facility] Comment on above: Order Comment: Speci men Type: BLOOD SPECIMEN Ordering Facility: [facility] Address: [address] [place], [place] [id number] Performed By: #### 5 7021-8, 453-7 #### [facility] CLIA [id number] [address] [place] [address] [place] Platelet mean volume (Bld) [Entitic vol] 10.6 fL Normal 9.0-12.7 [facility] Comment on above: Order Comment: Speci men Type: BLOOD SPECIMEN Ordering Facility: [facility] Address: [address] [place], [place] [phone] Performed By: #### 5 7021-8, 4537-7 #### [facility] CLIA [id number] [address] [place] [address] [place] Platelets (Bld) [#/Vol] 266 10*3/uL Normal 150-400 [facility] Comment on above: Order Comment: Speci men Type: BLOOD SPECIMEN Ordering Facility: [facility] Address: [address] [place], [place] [id number] Performed By: #### 5 7021-8, 4537-7 #### [facility] CLIA [id number] [address] [place] [address] [place] RBC (Bld) [#/Vol] 4.53 10*6/uL Normal 3.90-5.20 [facility] Comment on above: Order Comment: Speci men Type: BLOOD SPECIMEN Ordering Facility: [facility] Address: [address] [place] [address] Performed By: #### 5 7021-8, 4537-7 #### [facility] CLIA [id number] [address] [place] [address] [place] WBC (Bld) [#/Vol] 8.71 10*3/uL Normal 3.70-11.00 [facility] Comment on above: Order Comment: Speci men Type: BLOOD SPECIMEN Ordering Facility: [facility] Address: [address] [place] [address] Performed By: #### 5 7021-8, 4537-7 #### [facility] CLIA [id number] [address] [place] [address] [place] CNOVon 07-07-2023 CNOV Office Visit ([facility] ) CARLOTTA DIGGS ([id number]) 1985 F Date Time Provider Department 07/07/23 3:30 PM CHELA JOSEPH [facility] During your visit today, we recorded the following information about you: Temperature Pulse Respiration Blood pressure 97.2 degrees 76/minute 16/minute 112/60 Weight 104.8 kg Chela Joseph MD 07/07/2023 4:23 PM Signed MD Carlotta Moyer July 07, 2023 Referring Provider: PCP: Afia Figueroa, FINGERPRINT CLASSIFIER, FINGERPRINT CLASSIFIER Chief Complaint: Patient presents with: Follow Up Background Rheumatologic History: I first saw her 12/11/21 She started to have pain in her right hand associated with swelling about 4 months ago. The pain is usually active worse in the morning associated with at least an hour of morning stiffness. The pain later spread to the left hand, both knees, both feet and both ankles. She has been using meloxicam with no benefit. About 2 weeks ago, her primary care doctor decided to put her on low-dose prednisone. It has been helping. Her pain is down by 50%. She complains of facial erythema but no rash anywhere else. No inflammatory eye disease or inflammatory bowel disease. The patient denies family history of RA, SLE, , psoriasis, IBD, uveitis, other autoimmune diseases. Labs + CARINA RF > 650 CCP 65 Elevated sed rate I started HCQ and lower pred to 5 mg. F/U 04/09/22 Significantly better. I stopped pred and continued HCQ. MyChart 05/28/22 Flare. Started MTX. Restarted pred 5 mg. F/U 08/11/22 I think her rheumatoid arthritis is in remission today. Examination does not reveal any evidence of active synovitis. Surveillance labs from last month were also unremarkable. I will continue the current treatment with methotrexate, Plaquenil and prednisone 5 mg daily. Her hip pain is caused by trochanteric bursitis. I will do cortisone injection for her today. Interim History: Patient returns for follow up, last visit Visit date not found. She did not return for follow-up in December but continue to take her medications. She continued to do well without peripheral joint pain (except for the pain from bursitis) until she ran out of her Plaquenil and prednisone (about a month ago) that her hand and foot pain and swelling started to act up again. No past medical history on file. No past surgical history on file. Social History Tobacco Use Smoking status: Never Smokeless tobacco: Never Health Maintenance PNEUMOCOCCAL(1 - PCV) Never done HIV SCREENING Never done HEPATITIS B(2 of 3 - 3-dose series) due on 02/06/2002 SHINGRIX VACCINE(1 of 2) Never done PAP TESTING Never done DTAP,TDAP,TD(6 - Tdap) due on 01/09/2012 HPV TESTING Never done COVID-19 VACCINE(3 - Pfizer risk series) due on 04/21/2021 DEPRESSION ASSESSMENT Never done Immunization History Administered Date(s) Administered COVID-19 original vaccine, age 12+ yr, monovalent (SumUp - PURPLE TOP) 03/05/2021 03/24/2021 Haemophilus influenzae b-hepatitis B (Hib-HepB) vaccine (COMVAX) 01/09/2002 diphtheria tetanus pertussis (DTP) vaccine 1983 04/07/1984 03/15/1986 diphtheria tetanus pertussis (DTaP) vaccine, unspecified formulation 04/24/1987 01/09/2002 measles mumps rubella (MMR) vaccine (M-M-R II, PRIORIX) 03/15/1986 07/09/1996 poliovirus (IPV) vaccine, inactivated (IPOL) 01/09/2002 poliovirus (OPV) vaccine, trivalent, live, oral (ORIMUNE) 1983 04/07/1984 03/15/1986 Current Outpatient Medications Medication Sig Dispense Refill gabapentin (NEURONTIN) 100 mg capsule Take 200 mg by mouth daily at bedtime. tiZANidine (ZANAFLEX) 4 mg tablet atenolol (TENORMIN) 25 mg tablet FLUoxetine HCl (PROZAC) 40 mg capsule Take 40 mg by mouth. aspirin, enteric coated (ASPIRIN, ENTERIC COATED) 81 mg EC tablet q 24 HR. cholecalciferol, vitamin D3, (VITAMIN D3 ORAL) Take by mouth. hydrOXYchloroQUINE (PLAQUENIL) 200 mg tablet Take 1 tablet by mouth twice daily. 180 tablet 3 methotrexate 2.5 mg tablet Take 6 tablets by mouth one time a week. 72 tablet 3 folic acid 1 mg tablet Take 1 tablet by mouth once daily. 90 tablet 3 predniSONE (DELTASONE) 5 mg tablet Take 1 tablet by mouth once daily. 120 tablet 0 No current facility-administered medications for this visit. ALLERGIES No Known Allergies Physical Exam: BP 112/60 Pulse 76 Temp (Src) 97.2 (Temporal) Resp 16 Wt 231 lb (104.8kg) SpO2 98% General: Not pale, no jaundice, not in acute distress Head: Normocephalic, atraumatic Eyes: No redeye, no discharge ENT: No oral/nasal ulcer Neck: No lymphadenopathy Lungs: Normal breath sound, no adventitious sound Abdomen: Soft, not tender CV: Normal S1 S2, no murmur, no rub, pulse regular Skin: No rash, no malar rash, no telangiectasia, no pitting nail/onycholysis, no gross periungual telangiectasia Neuro: Grossly (more content not included)... Normal [facility] CREATININE BLDon 07-07-2023 Creatinine [Mass/Vol] 0.76 mg/dL Normal 0.58-0.96 [facility] Comment on above: Order Comment: Speci caden Type: BLOOD SPECIMEN Ordering Facility: [facility] Address: [address] [phone] Performed By: #### 1 742-6, 3094-0, CRET1, 1920-06, 1988-03 #### [facility] CLIA [id number] [address] [place] [address] [place] Creatinine [Mass/Vol] 0.76 mg/dL 0.58 - 0.96 mg/dL [facility] Creatinine and Glomerular filtration rate.predicted panel (S/P/Bld) 102 mL/min/1.73m??? Normal >=60 [facility] Comment on above: Order Comment: Lavelle negrete Type: BLOOD SPECIMEN Ordering Facility: [facility] Address: [address] [address] Result Comment: Larisa mated Glomerular Filtration Rate (eGFR) is calculated using the 2020 CKD-EPI creatinine equation. This equation utilizes serum creatinine, sex, and age as parameters. The creatinine assay has traceable calibration to isotope dilution-mass spectrometry. Refer to KDIGO guidelines for clinical interpretation. In patients with unstable renal function, e.g. those with acute kidney injury, the eGFR may not accurately reflect actual GFR. Performed By: #### 1 742-6, 3094-0, CRET1, 1920-06, 1988-03 #### [facility] CLIA [id number] [address] [place] [place] [address] [place] Estimated Glomerular Filtration Rate 102 mL/min/1.73m >=60 mL/min/1.73m [facility] CRP SerPl-mCncon 07-07-2023 CRP [Mass/Vol] 0.4 mg/dL Normal <0.9 [facility] Comment on above: Order Comment: Speci men Type: BLOOD SPECIMEN Ordering Facility: [facility] Address: [address] [phone] Performed By: #### 1 742-6, 3094-0, CRET1, 1920-8, 1987-5 #### [facility] CLIA [id number] [address] [place] [address] [place] ESR Westergren method (Bld) [Velocity]on 07-07-2023 ESR (Bld) [Velocity] 9 mm/h Normal 0-20 [facility] Comment on above: Order Comment: Speci men Type: BLOOD SPECIMENOrdering Facility: [facility] Address: [address] [phone] Performed By: #### 5 7021-8, 4537-7 ####[facility] [id number] [address] [place] ESR (Bld) [Velocity] 9 mm/h 0 - 20 mm/hr [facility] CARINA SUBTYPE (4)on 11-18-2022 ANTI ds DNA 1.7 IU/ML Normal (0.0 - 15.0) [facility] Comment on above: Performed By: #### C BC/2A, ENA4, C3-C4, ESRCRP #### [facility] [address] [facility], [id number] ANTI HAYWARD 0.9 U/mL Normal (0.0 - 10.0) [facility] Comment on above: Result Comment: PERF ORMED ON PHADIA EFFECTIVE 01-11-2022 Performed By: #### C BC/2A, ENA4, C3-C4, ESRCRP #### [facility] [address] [facility], [id number] ANTI SSA/RO 0.5 U/mL Normal (0.0 - 10.0) [facility] Comment on above: Performed By: #### C BC/2A, ENA4, C3-C4, ESRCRP #### [facility] [address] [facility], [address] ANTI SSB/LA <0.4 Normal (0.0 - 10.0) [facility] Comment on above: Performed By: #### C BC/2A, ENA4, C3-C4, ESRCRP #### [facility] [address] [facility], [address] C3 AND C4on 11-18-2022 C 3 131 MG/DL Normal (88 - 165) [facility] Comment on above: Performed By: #### C BC/2A, ENA4, C3-C4, ESRCRP #### [facility] [address] [facility], [address] C 4 28 MG/DL Normal (14 - 44) [facility] Comment on above: Performed By: #### C BC/2A, ENA4, C3-C4, ESRCRP #### [facility] [address] [facility], [address] CBC, ALB, ALT, AST, ALK AND CREAon 11-18-2022 Albumin [Mass/Vol] 4.1 g/dL Normal (3.5 - 5.0) [facility] Comment on above: Order Comment: FACIL ITY: [facility] [id number] Performed By: #### C BC/2A, ENA4, C3-C4, ESRCRP #### [facility] [address] [facility], [address] ALK PHOS 58 U/L Normal (38 - 126) [facility] Comment on above: Order Comment: FACIL ITY: [facility] [id number] Performed By: #### C BC/2A, ENA4, C3-C4, ESRCRP #### [facility] [address] [facility], [address] ALT [Catalytic activity/Vol] 24 U/L Normal (1 - 35) [facility] Comment on above: Order Comment: FACIL ITY: [facility] [id number] Performed By: #### C BC/2A, ENA4, C3-C4, ESRCRP #### [facility] [address] [facility], [address] AST [Catalytic activity/Vol] 29 U/L Normal (15 - 46) [facility] Comment on above: Order Comment: FACIL ITY: [facility] [id number] Performed By: #### C BC/2A, ENA4, C3-C4, ESRCRP #### [facility] [address] [facility], [address] Creatinine [Mass/Vol] 0.78 mg/dL Normal (0.52 - 1.04) [facility] Comment on above: Order Comment: FACIL ITY: [facility] [id number] Performed By: #### C BC/2A, ENA4, C3-C4, ESRCRP #### [facility] [address] [facility], [address] GFR- AMER 99.5 ML/M1.7 Normal (60.0 - 140.1) [facility] Comment on above: Order Comment: FACIL ITY: [facility] [id number] Performed By: #### C BC/2A, ENA4, C3-C4, ESRCRP #### [facility] [address] [facility], [address] GFR-NON AFRIC-AMER 82.2 ML/M1.7 Normal (60.0 - 115.8) [facility] Comment on above: Order Comment: FACIL ITY: [facility] [id number] Performed By: #### C BC/2A, ENA4, C3-C4, ESRCRP #### [facility] [address] [facility], [address] Hematocrit (Bld) [Volume fraction] 41.9 % Normal (37.0 - 47.0) [facility] Comment on above: Order Comment: FACIL ITY: [facility] [id number] Performed By: #### C BC/2A, ENA4, C3-C4, ESRCRP #### [facility] [address] [facility], [address] Hemoglobin (Bld) [Mass/Vol] 14.3 g/dL Normal (12.0 - 16.0) [facility] Comment on above: Order Comment: FACIL ITY: [facility] [id number] Performed By: #### C BC/2A, ENA4, C3-C4, ESRCRP #### [facility] [address] [facility], [address] MCH (RBC) [Entitic mass] 31.5 pg Normal (27.0 - 33.0) [facility] Comment on above: Order Comment: FACIL ITY: [facility] [id number] Performed By: #### C BC/2A, ENA4, C3-C4, ESRCRP #### [facility] [address] [facility], [address] MCHC (RBC) [Mass/Vol] 34.1 g/dL Normal (30.0 - 37.0) [facility] Comment on above: Order Comment: FACIL ITY: [facility] [id number] Performed By: #### C BC/2A, ENA4, C3-C4, ESRCRP #### [facility] [address] [facility], [address] MCV (RBC) [Entitic vol] 92.3 fL Normal (81.0 - 99.0) [facility] Comment on above: Order Comment: FACIL ITY: [facility] [id number] Performed By: #### C BC/2A, ENA4, C3-C4, ESRCRP #### [facility] [address] [facility], [address] PLT 280 x10^3ul Normal (130 - 400) [facility] Comment on above: Order Comment: FACIL ITY: [facility] [id number] Performed By: #### C BC/2A, ENA4, C3-C4, ESRCRP #### [facility] [address] [facility], [address] RBC 4.54 x10^6ul Normal (4.20 - 5.40) [facility] Comment on above: Order Comment: FACIL ITY: [facility] [id number] Performed By: #### C BC/2A, ENA4, C3-C4, ESRCRP #### [facility] [address] [facility], [address] WBC 10.77 x10^3ul High (3.80 - 10.60) [facility] Comment on above: Order Comment: FACIL ITY: [facility] [id number] Performed By: #### C BC/2A, ENA4, C3-C4, ESRCRP #### [facility] [address] [facility], [address] SED RATE - CRPon 11-18-2022 CRP EXTENDED RANGE 1.34 MG/L Normal (0.00 - 3.20) [facility] Comment on above: Performed By: #### C BC/2A, ENA4, C3-C4, ESRCRP #### [facility] [address] [facility], [address] SED RATE WEST. 10 MM/HR Normal (0 - 25) [facility] Comment on above: Performed By: #### C BC/2A, ENA4, C3-C4, ESRCRP #### [facility] [address] [facility], [address] CBC AUTO DIFFon 10-14-2022 BASO # 0.0 103/ul Normal 0.0-0.1 [facility] Comment on above: Performed By: #### C BC ####[facility] [address], [place] [address]CfRin Db Gary Basophils/100 WBC (Bld) 0.5 % Normal 0.2-2.0 [facility] Comment on above: Performed By: #### C BC ####[facility] [address] [id number]. Db Gary EO # 0.1 103/ul Normal 0.0-0.7 [facility] Comment on above: Performed By: #### C BC ####[facility] [address] [address]Dr. Db Gary Eosinophils/100 WBC (Bld) 1.4 % Normal 0.9-7.0 [facility] Comment on above: Performed By: #### C BC ####[facility] [address] [place], [place] [address]Dr. Db Gary Erythrocyte distribution width (RBC) [Ratio] 12.7 % Normal 11.0-15.0 [facility] Comment on above: Performed By: #### C BC ####[facility] [address] [place], [place] [address]Dr. Db Gary Hematocrit (Bld) [Volume fraction] 41.2 % Normal 36.0-48.0 [facility] Comment on above: Performed By: #### C BC ####[facility] [address] [place], [place] [address]Dr. Db Gary Hemoglobin (Bld) [Mass/Vol] 13.9 g/dL Normal 12.0-16.0 [facility] Comment on above: Performed By: #### C BC ####[facility] [address] [place], [place] [address]Dr. Db Gary IG # 0.02 10e3/ul Normal 0.00-0.03 [facility] Comment on above: Performed By: #### C BC ####[facility] [address] [place], [place] [address]Dr. Db Gary IG % 0.3 % Normal 0.0-0.5 [facility] Comment on above: Performed By: #### C BC ####[facility] [address] [place], [place] [address]Dr. Db Gary LYMPH # 2.2 103/ul Normal 1.2-3.8 [facility] Comment on above: Performed By: #### C BC ####[facility] [address] [id number]. Db Gary Lymphocytes/100 WBC (Bld) 34.5 % Normal 20.5-60.0 [facility] Comment on above: Performed By: #### C BC ####[facility] [address] [id number]. Db Abdirahman MANUAL DIFF REQ NO Normal [facility] Comment on above: Performed By: #### C BC ####[facility] [address] [id number]. Db Abdirahman MCH (RBC) [Entitic mass] 30.8 pg Normal 26.7-34.0 [facility] Comment on above: Performed By: #### C BC ####[facility] [address] [address]Dr. Db Abdirahman MCHC (RBC) [Mass/Vol] 33.7 g/dL Normal 29.9-35.2 [facility] Comment on above: Performed By: #### C BC ####[facility] [address] [id number]. Db Abdirahman MCV (RBC) [Entitic vol] 91.2 fL Normal 81.0-99.0 [facility] Comment on above: Performed By: #### C BC ####[facility] [address] [place], [place] [address]Dr. Ushamalik Abdirahman MONO # 0.6 103/ul Normal 0.3-0.8 [facility] Comment on above: Performed By: #### C BC ####[facility] [address] [address]Dr. Db Abdirahman Monocytes/100 WBC (Bld) 9.4 % Normal 1.7-12.0 [facility] Comment on above: Performed By: #### C BC ####[facility] [address] [place], [place] [address]Dr. Ushamalik Abdirahman NEUT # 3.4 103/ul Normal 1.4-6.5 [facility] Comment on above: Performed By: #### C BC ####[facility] [address] [id number]. Db Gary Neutrophils/100 WBC (Bld) 53.9 % Normal 43.0-75.0 [facility] Comment on above: Performed By: #### C BC ####[facility] [address] [id number]. Db Gary Platelet mean volume (Bld) [Entitic vol] 9.4 fL Critically low 9.5-13.5 [facility] Comment on above: Performed By: #### C BC ####[facility] [address] [id number]. Db Gary PLT 231 103/ul Normal 150-450 [facility] Comment on above: Performed By: #### C BC ####[facility] [address] [id number]. Db Gary RBC 4.52 106/ul Normal 4.20-5.40 [facility] Comment on above: Performed By: #### C BC ####[facility] [address] [id number]. Db Gary WBC 6.4 103/ul Normal 4.0-11.0 [facility] Comment on above: Performed By: #### C BC ####[facility] [address] [id number]. Db Gary CRPon 10-14-2022 CRP [Mass/Vol] mg/L Normal <=1.0 [facility] Comment on above: Performed By: #### B MP, CRP ####[facility] [address] [place], [place] [address]Dr. Db Gary CT HEAD WO CONon 10-14-2022 CT HEAD WO CON EXAMINATION: CT HEAD WO CON HISTORY: HEADACHE COMPARISON: 02/14/2020 TECHNIQUE: CT examination of the head without IV contrast. Sagittal and coronal reconstructions were obtained. Dose reduction techniques were achieved by using automated exposure control and/or adjustment of mA and/or kV according to patient size and/or use of iterative reconstruction technique. FINDINGS: The ventricles are not enlarged, the lateral ventricles are symmetric and the third ventricles in the midline. The sylvian fissures and cortical sulci are unremarkable. There is no evidence of an intracranial hemorrhage, mass lesion or apparent acute infarct. The cerebellum and visualized brainstem are intact. The paranasal sinuses appear clear as visualized. The middle ears are aerated. The mastoid air cells are essentially underdeveloped and sclerotic changes in the temporal bones. There is no apparent skull fracture. IMPRESSION: There is no evidence of an intracranial hemorrhage, mass lesion or apparent acute infarct. The visualized paranasal sinuses are clear. There is no evidence of a skull fracture. The overall appearance is unchanged. Electronically authenticated by: OBIE BOWER Date: 2022-10-14 13:03 Normal [facility] PROF CHEM 8 (BAS METB)on Anion gap [Moles/Vol] 8.9 mmol/L Normal [facility] Comment on above: Performed By: #### B MP, CRP ####[facility] [address] [address]Dr. Db Gary Calcium [Mass/Vol] 8.5 mg/dL Normal 8.5-10.[address] [facility] Comment on above: Performed By: #### B MP, CRP ####[facility] [address] [address]Dr. Db Gary Chloride [Moles/Vol] 104 mmol/L Normal 98-107 [facility] Comment on above: Performed By: #### B MP, CRP ####[facility] [address] [address]Dr. Db Gary CO2 [Moles/Vol] 29.8 mmol/L Normal 21.0-32.0 [facility] Comment on above: Performed By: #### B MP, CRP ####[facility] [address] [address]Dr. Db Gary Creatinine [Mass/Vol] 0.81 mg/dL Normal 0.55-1.02 [facility] Comment on above: Performed By: #### B MP, CRP ####[facility] [address] [address]Dr. Db Gary EGFR-AF SALVADOREAN >60 Normal >=60 [facility] Comment on above: Performed By: #### B MP, CRP ####[facility] [address] [id number]. Ushamalik Abdirahman EGFR-NON AF SALVADOREAN >60 Normal >=60 [facility] Comment on above: Performed By: #### B MP, CRP ####[facility] [address] [id number]. Db Gary Glucose [Mass/Vol] 82 mg/dL Normal 74-[address] [facility] Comment on above: Performed By: #### B MP, CRP ####[facility] [address] [address]Dr. Db Gary Potassium [Moles/Vol] 3.7 mmol/L Normal 3.5-5.1 [facility] Comment on above: Performed By: #### B MP, CRP ####[facility] [address] [place], [place] [address]Dr. Db Gary Sodium [Moles/Vol] 139 mmol/L Normal 136-145 [facility] Comment on above: Performed By: #### B MP, CRP ####[facility] [address] [place], [place] [address]Dr. Db Gary Urea nitrogen [Mass/Vol] 16.0 mg/dL Normal 7.0-18.0 [facility] Comment on above: Performed By: #### B MP, CRP ####[facility] [address] [place], [place] [address]Dr. Db Gary Urea nitrogen/Creatinin e [Mass ratio] 19.8 mg/mg Normal [facility] Comment on above: Performed By: #### B MP, CRP ####[facility] [address] [address]Dr. Db Gary [facility] SED RATE 14 mm/hr Normal <=20 [facility] Comment on above: Performed By: #### S EDR ####[facility] [address] [address]Dr. Db Gary XR CSPINE 2_3 VIEWSon 2021 XR CSPINE 2_3 VIEWS EXAMINATION: XR CSPINE 2_3 VIEWS HISTORY: Neck pain radiating into fingers; no known injury COMPARISON: No relevant comparison available. FINDINGS: BONES: Slight reversal normal lordotic curvature. No fracture, spondylolisthesis, bone lesion. No facet joint disruption or significant arthropathy. DISC SPACES: Mild narrowing C4-C5, C5-C6. PARASPINOUS: Negative. No paraspinous abnormality is seen. OTHER: Negative. IMPRESSION: 1. Mild to moderate degenerative disc disease C4-C5 and C5-C6. Consider MRI for further evaluation. 2. Reversal of normal lordotic curvature; positioning versus muscle spasm. Electronically authenticated by: MAHENDRA AGUILAR Date: 2022-09-07 17:04 Normal [facility] BUNon 06-28-2022 Urea nitrogen [Mass/Vol] 23.0 mg/dL Critically high 7.0-18.0 [facility] Comment on above: Performed By: #### A ST, CRP, ALT, CREA, BUN #### [facility] [address] [place] [address] Dr. Db Gary CBC AUTO DIFFon 06-28-2022 BASO # 0.0 103/ul Normal 0.0-0.1 [facility] Comment on above: Performed By: #### C BC #### [facility] [address] [place] [address] Dr. Db Gary Basophils/100 WBC (Bld) 0.5 % Normal 0.2-2.0 [facility] Comment on above: Performed By: #### C BC #### [facility] [address] [place] [address] Dr. Db Gary EO # 0.1 103/ul Normal 0.0-0.7 [facility] Comment on above: Performed By: #### C BC #### [facility] [address] [place] [address] Dr. Db Gary Eosinophils/100 WBC (Bld) 0.9 % Normal 0.9-7.0 [facility] Comment on above: Performed By: #### C BC #### [facility] [address] [place] [address] Dr. Db Gary Erythrocyte distribution width (RBC) [Ratio] 13.2 % Normal 11.0-15.0 [facility] Comment on above: Performed By: #### C BC #### [facility] [address] [place] [address] Dr. Db Gary Hematocrit (Bld) [Volume fraction] 40.2 % Normal 36.0-48.0 [facility] Comment on above: Performed By: #### C BC #### [facility] [address] [place] [address] Dr. Db Gary Hemoglobin (Bld) [Mass/Vol] 12.9 g/dL Normal 12.0-16.0 [facility] Comment on above: Performed By: #### C BC #### [facility] [address] [place] [address] Dr. Db Gary IG # 0.02 10e3/ul Normal 0.00-0.03 [facility] Comment on above: Performed By: #### C BC #### [facility] [address] [place] [address] Dr. Db Gary IG % 0.2 % Normal 0.0-0.5 [facility] Comment on above: Performed By: #### C BC #### [facility] [address] [place] [address] Dr. Db Gary LYMPH # 3.0 103/ul Normal 1.2-3.8 [facility] Comment on above: Performed By: #### C BC #### [facility] [address] [place] [address] Dr. Db Gary Lymphocytes/100 WBC (Bld) 36.0 % Normal 20.5-60.0 [facility] Comment on above: Performed By: #### C BC #### [facility] [address] [place] [address] Dr. Db Gary MANUAL DIFF REQ NO Normal [facility] Comment on above: Performed By: #### C BC #### [facility] [address] [place] [address] Dr. Db Gary MCH (RBC) [Entitic mass] 28.8 pg Normal 26.7-34.0 [facility] Comment on above: Performed By: #### C BC #### [facility] [address] [address] [address] Db Gary MCHC (RBC) [Mass/Vol] 32.1 g/dL Normal 29.9-35.2 [facility] Comment on above: Performed By: #### C BC #### [facility] [address] [address] [address] Db Gary MCV (RBC) [Entitic vol] 89.7 fL Normal 81.0-99.0 [facility] Comment on above: Performed By: #### C BC #### [facility] [address] [place] [address] Dr. Db Gary MONO # 0.6 103/ul Normal 0.3-0.8 [facility] Comment on above: Performed By: #### C BC #### [facility] [address] [place] [address] Dr. Db Gary Monocytes/100 WBC (Bld) 7.4 % Normal 1.7-12.0 [facility] Comment on above: Performed By: #### C BC #### [facility] [address] [place] [address] Dr. Db Gary NEUT # 4.5 103/ul Normal 1.4-6.5 [facility] Comment on above: Performed By: #### C BC #### [facility] [address] [place] [address] Dr. Db Gary Neutrophils/100 WBC (Bld) 55.0 % Normal 43.0-75.0 [facility] Comment on above: Performed By: #### C BC #### [facility] [address] [address] [address] Db Gary Platelet mean volume (Bld) [Entitic vol] 10.3 fL Normal 9.5-13.5 [facility] Comment on above: Performed By: #### C BC #### [facility] [address] [address] [address] Db Gary PLT 275 103/ul Normal 150-450 [facility] Comment on above: Performed By: #### C BC #### [facility] [address] [place] [address] Dr. Db Gary RBC 4.48 106/ul Normal 4.20-5.40 [facility] Comment on above: Performed By: #### C BC #### [facility] [address] [place] [address] Dr. Db Gary WBC 8.2 103/ul Normal 4.0-11.0 [facility] Comment on above: Performed By: #### C BC #### [facility] [address] [place] [address] Dr. Db Gary CREATININEon 06-28-2022 Creatinine [Mass/Vol] 0.90 mg/dL Normal 0.55-1.02 [facility] Comment on above: Performed By: #### A ST, CRP, ALT, CREA, BUN #### [facility] [address] [place] [address] Dr. Db Gary EGFR-AF SALVADOREAN >60 Normal >=60 [facility] Comment on above: Performed By: #### A ST, CRP, ALT, CREA, BUN #### [facility] [address] [place] [address] Dr. Db Gary EGFR-NON AF SALVADOREAN >60 Normal >=60 [facility] Comment on above: Performed By: #### A ST, CRP, ALT, CREA, BUN #### [facility] [address] [place] [address] Dr. Db Gary CRPon 06-28-2022 CRP [Mass/Vol] mg/L Normal <=1.0 [facility] Comment on above: Performed By: #### A ST, CRP, ALT, CREA, BUN #### [facility] [address] [place] [address] Dr. Db Gary SED RATE ROSEDALEERGREN 2021 SED RATE 7 mm/hr Normal <=20 [facility] Comment on above: Performed By: #### S EDR #### [facility] [address] [place] [address] Dr. Db Gary SGOTon 06-28-2022 AST [Catalytic activity/Vol] 16 U/L Normal 15-37 [facility] Comment on above: Performed By: #### A ST, CRP, ALT, CREA, BUN #### [facility] [address] [place] [address] Dr. Db Gary SGPTon 06-28-2022 ALT [Catalytic activity/Vol] 22 U/L Normal 14-59 [facility] Comment on above: Performed By: #### A ST, CRP, ALT, CREA, BUN #### [facility] [address] [address] [address] Db Gary CBC AUTO DIFFon 06-07-2022 BASO # 0.1 103/ul Normal 0.0-0.1 [facility] Comment on above: Performed By: #### C BC ####[facility] [address] [address]Dr. Db Gary Basophils/100 WBC (Bld) 0.7 % Normal 0.2-2.0 [facility] Comment on above: Performed By: #### C BC ####[facility] [address] [address]DrRin Gary EO # 0.1 103/ul Normal 0.0-0.7 [facility] Comment on above: Performed By: #### C BC ####[facility] [address] [address]DrRin Gary Eosinophils/100 WBC (Bld) 1.1 % Normal 0.9-7.0 [facility] Comment on above: Performed By: #### C BC ####[facility] [address] [address]Dr. Db Gary Erythrocyte distribution width (RBC) [Ratio] 12.0 % Normal 11.0-15.0 [facility] Comment on above: Performed By: #### C BC ####[facility] [address] [address]Dr. Db Gary Hematocrit (Bld) [Volume fraction] 37.4 % Normal 36.0-48.0 [facility] Comment on above: Performed By: #### C BC ####[facility] [address] [id number]. Db Gary Hemoglobin (Bld) [Mass/Vol] 13.0 g/dL Normal 12.0-16.0 [facility] Comment on above: Performed By: #### C BC ####[facility] [address] [id number]. Db Gary IG # 0.01 10e3/ul Normal 0.00-0.03 [facility] Comment on above: Performed By: #### C BC ####[facility] [address] [id number]. Db Gary IG % 0.1 % Normal 0.0-0.5 [facility] Comment on above: Performed By: #### C BC ####[facility] [address] [address]Dr. Db Gary LYMPH # 3.0 103/ul Normal 1.2-3.8 [facility] Comment on above: Performed By: #### C BC ####[facility] [address] [id number]. Db Gary Lymphocytes/100 WBC (Bld) 41.3 % Normal 20.5-60.0 [facility] Comment on above: Performed By: #### C BC ####[facility] [address] [id number]. Db Gary MANUAL DIFF REQ NO Normal [facility] Comment on above: Performed By: #### C BC ####[facility] [address] [id number]. Db Gary MCH (RBC) [Entitic mass] 29.3 pg Normal 26.7-34.0 [facility] Comment on above: Performed By: #### C BC ####[facility] [address] [id number]. Db Gary MCHC (RBC) [Mass/Vol] 34.8 g/dL Normal 29.9-35.2 [facility] Comment on above: Performed By: #### C BC ####[facility] [address] [id number]. Db Gary MCV (RBC) [Entitic vol] 84.4 fL Normal 81.0-99.0 [facility] Comment on above: Performed By: #### C BC ####[facility] [address] [id number]. Db Gary MONO # 0.7 103/ul Normal 0.3-0.8 [facility] Comment on above: Performed By: #### C BC ####[facility] [address] [id number]. Db Gary Monocytes/100 WBC (Bld) 10.2 % Normal 1.7-12.0 [facility] Comment on above: Performed By: #### C BC ####[facility] [address] [place], [place] [address]Dr. Db Gary NEUT # 3.4 103/ul Normal 1.4-6.5 [facility] Comment on above: Performed By: #### C BC ####[facility] [address] [place], [place] [id number]. Db Gary Neutrophils/100 WBC (Bld) 46.6 % Normal 43.0-75.0 [facility] Comment on above: Performed By: #### C BC ####[facility] [address] [place], [place] [address]Dr. Db Gary Platelet mean volume (Bld) [Entitic vol] 9.6 fL Normal 9.5-13.5 [facility] Comment on above: Performed By: #### C BC ####[facility] [address] [place], [place] [id number]. Db Gary PLT 235 103/ul Normal 150-450 [facility] Comment on above: Performed By: #### C BC ####[facility] [address] [place], [place] [id number]. Db Abdirahman RBC 4.43 106/ul Normal 4.20-5.40 [facility] Comment on above: Performed By: #### C BC ####[facility] [address] [place], [place] [address]Hp. Db Gary WBC 7.3 103/ul Normal 4.0-11.0 [facility] Comment on above: Performed By: #### C BC ####[facility] [address] [place], [place] [address]Ow. Db Gary CTA HEART-CORONARY/ ARTERY B YPASS GRAFT WITH 3DPPon 10-05-2019 CTA HEART-CORONARY/ ARTERY BYPASS GRAFT WITH 3DPP [facility] Department of Radiology [address] [place] [id number] ======== Patient Name: CARLOTTA DIGGS : 1985 Sex: F Age: Race: White Pt. Location: Patient Status: D Ordered Date: 08/29/2019 9:00:00 AM Completed Date: 10/05/2019 02:41 PM Requesting Provider: VENKATA ROSADO Attending Provider: VENKATA ROSADO Report Copy To: AFIA FIGUEROA Signs & Symptoms: R07.9 Chest pain, unspecified I10 History: Katherine See attached paperwork for CTA Coronaries. labs done 08/28/19 [facility] auth# [id number] 09/03/19-12/02/19 cpt code 24656 *mla Comments: coronary CTA to rule out significant major epicardial coronary artery disease and/or congenital anomalies Exam: CTA HEART-CORONARY/ ARTERY BYPASS GRAFT WITH 3DPP ======== CTA HEART-CORONARY/ ARTERY BYPASS GRAFT WITH 3DPP 10/05/2019 2:41 PM EST SIGN AND SYMPTOMS: R07.9 Chest pain, unspecified I10 TECHNOLOGIST COMMENTS: C/o chest pain with SOB. QUESTIONS PER RADIOLOGIST: coronary CTA to rule out significant major epicardial coronary artery disease and/or congenital anomalies PROTOCOL: Axial CT angiography images were obtained with IV contrast. CONTRAST: Contrast: OMNIPAQUE 350 (LOCM), 100 milliliter, Intravenous TECHNIQUE: Multidetector CT angiogram was obtained using prospective ECG gating. Imaging was performed from the level of the clavicles to the level of the hemidiaphragms. In order to provide better evaluation of the anatomy and disease process, advanced off-line 3-D post-processing techniques, including were performed. Medication administered in preparation for the examination located in nursing documentation. COMPARISON: None. CORONARY ARTERY ANGIOGRAM FINDINGS: Stenoses are reported as maximum percentage diameter stenosis. Stenosis grading is reported using the following scheme: Normal: no stenosis Mild: 1-49% stenosis Moderate: 50-70% stenosis Severe: >70% stenosis Occluded Dominance of the coronary artery system: right with normal origins and course. Left Main: The left main is a normal caliber vessel which gives rise to the LAD and circumflex arteries The left main with no significant plaque. Left Anterior Descending Artery: The proximal left anterior descending artery and first diagonal branch with no significant plaque. The mid-distal LAD, D2 and D3 branches with no significant plaque. Left Circumflex Artery: The left circumflex artery and its obtuse marginal branches with no significant plaque. Of obtuse marginal branch and tapers distally. Right Coronary Artery: The right coronary artery and acute marginal branches with no significant plaque. The vessel terminates as posterior lateral and PDA Cardiac Morphology: The right atrium is normal. The right ventricle is normal. The left atrium is normal. The left ventricle is normal. The pericardium is normal and there is no pericardial effusion. No congenital cardiac anomalies are appreciated. The heart is normal in size and configuration. Cardiac Function: {reported only if retrospective ECG gating has been used} The calculated left ventricular ejection fraction is 60%, the left ventricular end-diastolic volume is 165 ml, and the left ventricular end-systolic volume is 65 ml. Stroke volume is 100 mL. There normal wall motion of the left ventricle. EXTRACARDIAC FINDINGS: Other lung findings: No focal consolidation. Airway: Normal. Pleura: No pleural effusion, thickening, or pneumothorax. Thoracic aorta and great vessels: Normal in diameter. Pulmonary arteries: Normal. Heart and pericardium: Normal. Lymph nodes: No enlarged thoracic lymph nodes. Thoracic spine: Mild bony spurring suggesting mild thoracic spondylosis. Chest wall: Normal. Visualized upper abdomen: Normal. IMPRESSION: 1. Normal coronary CTA without evidence for coronary artery stenosis.. 2. Normal global and regional wall motion and function of the LV. Normal ejection fraction of 60% 3. Mild thoracic spondylosis 4. No pericardial effusion. Electronically signed by:Nitish Solitario. Transcribed by: [email or web address], User Resident: Electronically Signed by: NITISH SOLITARIO @ 10/09/2019 04:23 PM Normal [facility] Comment on above: Order Comment: coron dangelo CTA to rule out significant major epicardial coronary artery disease and/or congenital anomalies Large Joint Arthro/Inj: L gr eater trochanteric bursa [facility] Social History Date Type Detail Facility Start: 12-27-2023 Alcohol intake Ex-drinker (finding) [facility] Start: 12-25-2023 Tobacco smoking stat us RIIS Ex-smoker [facility] Start: 08-11-2022 End: 12-26-2023 History of Social function [facility] Start: 08-11-2022 End: 12-26-2023 Tobacco use panel [facility] Start: 2022 End: 08-11-2022 Exposure to SARS-CoV-2 (event) Not sure [facility] Start: 12-11-2021 End: 08-11-2022 Tobacco smoking status NHIS Never smoked tobacco [facility] Start: 12-11-2021 End: 08-11-2022 Tobacco use and exposure Smokeless tobacco non-user [facility] Start: 1985 Sex Assigned At Not on file C [facility] Adult Depression Scr eening Assessment 1 [facility] End: 11-14-2012 History of tobacco use Current smoker [facility] End: 11-14-2012 History of tobacco use Cigarette Smoker [facility] Within the last year , have you been afraid of your partner or ex-partner? No [facility] Are you now , , , , never or living with a partner? Never [facility] Do you feel stress - tense, restless, nervous, or anxious, or unable to sleep at night because your mind is troubled all the time - these days [OSQ] To some extent [facility] (I/We) worried wheth er (my/our) food would run out before (I/we) got money to buy more. DK or Refused [facility] Vital Signs Date Time Vital Sign Value Performing Clinician Dianelys langston 12-27-2023 14:59-0500 Body height 162.6 cm Afiajulissa Figueroa DIESEL ENGINE MECHANIC APPRENTICE Work Phone: [facility] 12-27-2023 14:59-0500 Body mass index (BMI) [Ratio] 41.23 kg/m2 Aifa Henry DIESEL ENGINE MECHANIC APPRENTICE Work Phone: [facility] 12-27-2023 14:59-0500 Body temperature 97.11 [degF] Afia Figueroa DIESEL ENGINE MECHANIC APPRENTICE Work Phone: [facility] 12-27-2023 14:59-0500 Body weight 108.95 kg Afia Henry DIESEL ENGINE MECHANIC APPRENTICE Work Phone: [facility] 12-27-2023 14:59-0500 Diastolic blood pressure 82 mm[Hg] Afia Henry DIESEL ENGINE MECHANIC APPRENTICE Work Phone: [facility] 12-27-2023 14:59-0500 Heart rate 87 /min Afia Henry DIESEL ENGINE MECHANIC APPRENTICE Work Phone: [facility] 12-27-2023 14:59-0500 Respiratory rate 18 /min Afia Henry DIESEL ENGINE MECHANIC APPRENTICE Work Phone: [facility] 12-27-2023 14:59-0500 SaO2% (BldA) [Mass fraction] 99 % Afiajulissa Figueroa DIESEL ENGINE MECHANIC APPRENTICE Work Phone: [facility] 12-27-2023 14:59-0500 Systolic blood pressure 124 mm[Hg] Afia Henry DIESEL ENGINE MECHANIC APPRENTICE Work Phone: [facility] 12-23-2023 08:38-0500 Body height 162.6 cm Patompong Ungprasert MD Work Phone: [facility] 12-23-2023 08:38-0500 Body temperature 97.5 [degF] Chela Joseph MD Work Phone: [facility] 12-23-2023 08:38-0500 Body weight 108.8 kg Chela Joseph MD Work Phone: [facility] 12-23-2023 08:38-0500 Diastolic blood pressure 72 mm[Hg] Chela Joseph MD Work Phone: [facility] 12-23-2023 08:38-0500 Heart rate 66 /min Chela Joseph MD Work Phone: [facility] 12-23-2023 08:38-0500 Systolic blood pressure 115 mm[Hg] Chela Joseph MD Work Phone: [facility] 07-07-2023 15:51-0400 Body temperature 97.2 [degF] Chela Joseph MD Work Phone: [facility] 07-07-2023 15:51-0400 Body weight 104.78 kg Chela Joseph MD Work Phone: [facility] 07-07-2023 15:51-0400 Diastolic blood pressure 60 mm[Hg] Chela Joseph MD Work Phone: [facility] 07-07-2023 15:51-0400 Heart rate 76 /min Chela Joseph MD Work Phone: [facility] 07-07-2023 15:51-0400 Respiratory rate 16 /min Chela Joseph MD Work Phone: [facility] 07-07-2023 15:51-0400 SaO2% (BldA) [Mass fraction] 98 % Chela Joseph MD Work Phone: [facility] 07-07-2023 15:51-0400 Systolic blood pressure 112 mm[Hg] Chela Joseph MD Work Phone: [facility] 08-11-2022 16:18-0400 Body height 160 cm Chela Joseph MD Work Phone: [facility] 08-11-2022 16:18-0400 Body temperature 97.9 [degF] Chela Joseph MD Work Phone: [facility] 08-11-2022 16:18-0400 Body weight 97.07 kg Chela Joseph MD Work Phone: [facility] 08-11-2022 16:18-0400 Diastolic blood pressure 61 mm[Hg] Chela Joseph MD Work Phone: [facility] 08-11-2022 16:18-0400 Heart rate 68 /min Chela Joseph MD Work Phone: [facility] 08-11-2022 16:18-0400 Systolic blood pressure 114 mm[Hg] Chela Joseph MD Work Phone: [facility] Clinical Notes 03-23-2022 to 12-27-2023 Afia Figueroa NP - 12/27/2023 3:28 PM Curt Figueroa NP - 12/27/2023 3:27 PM Curt Figueroa NP - 12/27/2023 3:27 PM Curt Figueroa NP - 12/27/2023 3:27 PM ESTPatient Instructions Note Date & Type Note Facility 12-27-2023 History of Present illness Narrative Associated Problem(s): KYLE (obstructive sleep apnea) Compliance with PAP Associated Problem(s): Heart palpitations Stable on current meds Associated Problem(s): Rheumatoid arthritis involving both hands with positive rheumatoid factor (CMS/HCC) Continue with rheumatology Associated Problem(s): Anxiety and depression (CMS/HCC) No changes in meds or doses Pt needing a refill on her atenolol 25mg Images from the original note were not included. Carlotta Diggs is a 38 y.o. female presents with chief complaint of No chief complaint on file. HPI: Here for a recheck of chronic conditions: she is seeing Rheumatology recently, has had her prednisone decreased to 2.5mg daily Anxiety/depression is stable, only c.o at this time is her weight gain, is trying to watch her diet, as well as her physically active SUBJECTIVE: MEDICATIONS: Current Outpatient Medications Medication Instructions amitriptyline (Elavil) 25 MG tablet 1 tablet, Oral, Nightly atenolol (Tenormin) 25 MG tablet 1 tablet, Oral, Daily FLUoxetine (PROzac) 40 MG capsule 1 capsule, Oral, Daily gabapentin (NEURONTIN) 200 mg, Oral, Nightly hydroxychloroquine (Plaquenil) 200 MG tablet 1 tablet, Oral, 2 times daily methotrexate 15 mg, Oral, Weekly nitroglycerin (Nitrostat) 0.4 MG SL tablet 1 tablet, Sublingual, Every 5 min PRN tiZANidine (Zanaflex) 4 MG tablet 1 tablet, Oral, Nightly PRN ALLERGIES: No Known Allergies REVIEW OF SYMPTOMS: Review of Systems Constitutional: Negative for appetite change, chills and fever. HENT: Negative for congestion, ear pain and sore throat. Eyes: Negative for pain, discharge, redness and visual disturbance. Respiratory: Negative for cough, shortness of breath and wheezing. Cardiovascular: Negative for chest pain, palpitations and leg swelling. Gastrointestinal: Negative for abdominal pain, blood in stool, constipation, diarrhea, nausea and vomiting. Genitourinary: Negative for difficulty urinating, dysuria and frequency. Musculoskeletal: Positive for arthralgias and neck pain. Negative for back pain, joint swelling and myalgias. Skin: Negative for rash and wound. Neurological: Negative for dizziness, tremors, seizures, syncope and headaches. Psychiatric/Behavioral: Negative for behavioral problems, self-injury and suicidal ideas. The patient is not nervous/anxious. Hematological: Does not bruise/bleed easily. Endocrine: Negative for polydipsia, polyphagia and polyuria. Allergic/Immunologic: Negative for environmental allergies and food allergies. PAST MEDICAL HISTORY Past Medical History: Diagnosis Date Anxiety and depression ([facility]) 12/27/2023 Cervical pain (neck) Cholesteatoma, right COVID 10/26/2023 ETD (Eustachian tube dysfunction), bilateral Heart palpitations KYLE (obstructive sleep apnea) Pain, joint, hand, right Perforation of right tympanic membrane PFO (patent foramen ovale) now resolved. Rheumatoid arthritis involving both hands with positive rheumatoid factor ([facility]) Tobacco user Tubal Past Surgical History: Procedure Laterality Date CARPAL TUNNEL RELEASE Right 01/12/2018 @ [facility] HYSTERECTOMY 12/10/2019 Vaginal with right salpinectomy, cystoscopy MASTOID SURGERY Left mastoidectomy MYRINGOTOMY W/ TUBES Right @ [facility] OTHER SURGICAL HISTORY 03/13/2013 Rt T-Tube Placement OTHER SURGICAL HISTORY 12/27/2004 Tubal SALPINGOOPHORECTOMY Left 09/26/2019 TUBAL LIGATION 12/17/2004 family history includes Diabetes in her maternal grandfather, maternal grandmother, and mother; HIV in her brother; Heart disease in her father; Kidney disease in her father; Lymphoma in her brother; No Known Problems in her sister; Thyroid disease in her mother. OBJECTIVE: Visit Vitals BP 124/82 (BP Location: Left arm, Patient Position: Sitting, BP Cuff Size: Large adult long) Pulse 87 Temp 97.1 F (Temporal) Resp 18 Ht 5' 4 Wt 240 lb 3.2 oz SpO2 99% BMI 41.23 kg/m Smoking Status Former BSA 2.22 m Physical Exam Vitals reviewed. Constitutional: General: She is not in acute distress. Appearance: Normal appearance. HENT: Head: Normocephalic and atraumatic. Right Ear: External ear normal. Left Ear: External ear normal. Nose: Nose normal. Mouth/Throat: Mouth: Mucous membranes are moist. Eyes: Extraocular Movements: Extraocular movements intact. Conjunctiva/sclera: Conjunctivae normal. Cardiovascular: Rate and Rhythm: Normal rate and regular rhythm. Pulses: Normal pulses. Heart sounds: Normal heart sounds. Pulmonary: Effort: Pulmonary effort is normal. Breath sounds: Normal breath sounds. Abdominal: General: Bowel sounds are normal. There is no distension. Palpations: Abdomen is soft. There is no mass. Tenderness: There is no abdominal tenderness. Musculoskeletal: General: Normal range of motion. Cervical back: Normal range of motion and neck supple. Skin: General: Skin is warm and dry. Capillary Refill: Capillary refill takes 2 to 3 seconds. Findings: No rash. Neurological: General: No focal deficit present. Mental Status: She is alert and oriented to person, place, and time. Psychiatric: Mood and Affect: Mood normal. Behavior: Behavior normal. Thought Content: Thought content normal. Judgment: Judgment normal. ASSESSMENT AND PLAN: No follow-ups on file. 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 Author Type: Physician Type: Progress Notes Filed: 12/23/2023 09:02 Note Text: MD Carlotta Moyer December 22, 2023 Referring Provider:Self PCP: Afia Figueroa, FINGERPRINT CLASSIFIER, FINGERPRINT CLASSIFIER Chief Complaint: Patient presents with: Joint Pain Background Rheumatologic History: I first saw her 12/11/21 She started to have pain in her right hand associated with swelling about 4 months ago. The pain is usually active worse in the morning associated with at least an hour of morning stiffness. The pain later spread to the left hand, both knees, both feet and both ankles. She has been using meloxicam with no benefit. About 2 weeks ago, her primary care doctor decided to put her on low-dose prednisone. It has been helping. Her pain is down by 50%. She complains of facial erythema but no rash anywhere else. No inflammatory eye disease or inflammatory bowel disease. The patient denies family history of RA, SLE, , psoriasis, IBD, uveitis, other autoimmune diseases. Labs + CARINA RF > 650 CCP 65 Elevated sed rate I started HCQ and lower pred to 5 mg. F/U 04/09/22 Significantly better. I stopped pred and continued HCQ. MyChart 05/28/22 Flare. Started MTX. Restarted pred 5 mg. F/U 08/11/22 I think her rheumatoid arthritis is in remission today. Examination does not reveal any evidence of active synovitis. Surveillance labs from last month were also unremarkable. I will continue the current treatment with methotrexate, Plaquenil and prednisone 5 mg daily. Her hip pain is caused by trochanteric bursitis. I will do cortisone injection for her today. F/U 07/07/23 She did not return for follow-up in December but continue to take her medications. She continued to do well without peripheral joint pain (except for the pain from bursitis) until she ran out of her Plaquenil and prednisone (about a month ago) that her hand and foot pain and swelling started to act up again. Her rheumatoid arthritis is active again today. This is not surprising given that she ran out of her medications a month ago. I will refill of the medications for her today including low-dose steroid. If her RA improved by next visit, I plan to gradually taper her prednisone down. Interim History: Patient returns for follow up, last visit 08/11/2022. She has been doing well since she is back on treatment. Pain and swelling are gone. She already did eye exam. No past medical history on file. No past surgical history on file. Social History Tobacco Use Smoking status: Never Smokeless tobacco: Never Health Maintenance Pneumococcal Vaccine(1 of 2 - PCV) Never done HIV Screening Never done Hepatitis B Vaccine(2 of 3 - 3-dose series) due on 02/06/2002 Shingrix Vaccine(1 of 2) Never done Pap Testing Never done DTaP,Tdap,Td Vaccine(6 - Tdap) due on 01/09/2012 HPV Testing Never done Covid-19 Vaccine(3 - Pfizer risk series) due on 04/21/2021 Influenza Vaccine(1) Never done Mammogram Screening Never done Depression Assessment Never done Immunization History Administered Date(s) Administered COVID-19 original vaccine, age 12+ yr, monovalent (SumUp - PURPLE TOP) 03/05/2021 03/24/2021 Haemophilus influenzae b-hepatitis B (Hib-HepB) vaccine (COMVAX) 01/09/2002 diphtheria tetanus pertussis (DTP) vaccine 1983 04/07/1984 03/15/1986 diphtheria tetanus pertussis (DTaP) vaccine, unspecified formulation 04/24/1987 01/09/2002 measles mumps rubella (MMR) vaccine (M-M-R II, PRIORIX) 03/15/1986 07/09/1996 poliovirus (IPV) vaccine, inactivated (IPOL) 01/09/2002 poliovirus (OPV) vaccine, trivalent, live, oral (ORIMUNE) 1983 04/07/1984 03/15/1986 Current Outpatient Medications Medication Sig Dispense Refill gabapentin (NEURONTIN) 100 mg capsule Take 200 mg by mouth daily at bedtime. tiZANidine (ZANAFLEX) 4 mg tablet hydrOXYchloroQUINE (PLAQUENIL) 200 mg tablet Take 1 tablet by mouth twice daily. 180 tablet 3 methotrexate 2.5 mg tablet Take 6 tablets by mouth one time a week. 72 tablet 3 folic acid 1 mg tablet Take 1 tablet by mouth once daily. 90 tablet 3 atenolol (TENORMIN) 25 mg tablet FLUoxetine HCl (PROZAC) 40 mg capsule Take 40 mg by mouth. aspirin, enteric coated (ASPIRIN, ENTERIC COATED) 81 mg EC tablet q 24 HR. cholecalciferol, vitamin D3, (VITAMIN D3 ORAL) Take by mouth. predniSONE (DELTASONE) 2.5 mg tablet Take 1 tablet by mouth once daily. 30 tablet 0 No current facility-administered medications for this visit. ALLERGIES No Known Allergies Physical Exam: BP 115/72 Pulse 66 Temp (Src) 97.5 (Temporal) Ht 5' 4 (1.63m) Wt 239 lb 13.8 oz (108.8kg) BMI 41.15 kg/(m2). General: Not pale, no jaundice, not in acute distress Head: Normocephalic, atraumatic Eyes: No redeye, no discharge ENT: No oral/nasal ulcer Neck: No lymphadenopathy Lungs: Normal breath sound, no adventi (more content not included)... [facility] 12-23-2023 Instructions Chela Joseph MD - 12/23/2023 8:51 AM EST Follow up Jul 13 at 2 PM documented in this encounter [facility] 12-23-2023 History of Present illness Narrative MD Carlotta Moyer December 22, 2023 Referring Provider:Self PCP: Afia Figueroa, FINGERPRINT CLASSIFIER, FINGERPRINT CLASSIFIER Chief Complaint: Patient presents with: Joint Pain Background Rheumatologic History: I first saw her 12/11/21 She started to have pain in her right hand associated with swelling about 4 months ago. The pain is usually active worse in the morning associated with at least an hour of morning stiffness. The pain later spread to the left hand, both knees, both feet and both ankles. She has been using meloxicam with no benefit. About 2 weeks ago, her primary care doctor decided to put her on low-dose prednisone. It has been helping. Her pain is down by 50%. She complains of facial erythema but no rash anywhere else. No inflammatory eye disease or inflammatory bowel disease. The patient denies family history of RA, SLE, , psoriasis, IBD, uveitis, other autoimmune diseases. Labs + CARINA RF > 650 CCP 65 Elevated sed rate I started HCQ and lower pred to 5 mg. F/U 04/09/22 Significantly better. I stopped pred and continued HCQ. MyChart 05/28/22 Flare. Started MTX. Restarted pred 5 mg. F/U 08/11/22 I think her rheumatoid arthritis is in remission today. Examination does not reveal any evidence of active synovitis. Surveillance labs from last month were also unremarkable. I will continue the current treatment with methotrexate, Plaquenil and prednisone 5 mg daily. Her hip pain is caused by trochanteric bursitis. I will do cortisone injection for her today. F/U 07/07/23 She did not return for follow-up in December but continue to take her medications. She continued to do well without peripheral joint pain (except for the pain from bursitis) until she ran out of her Plaquenil and prednisone (about a month ago) that her hand and foot pain and swelling started to act up again. Her rheumatoid arthritis is active again today. This is not surprising given that she ran out of her medications a month ago. I will refill of the medications for her today including low-dose steroid. If her RA improved by next visit, I plan to gradually taper her prednisone down. Interim History: Patient returns for follow up, last visit 08/11/2022. She has been doing well since she is back on treatment. Pain and swelling are gone. She already did eye exam. No past medical history on file. No past surgical history on file. Social History Tobacco Use Smoking status: Never Smokeless tobacco: Never Health Maintenance Pneumococcal Vaccine(1 of 2 - PCV) Never done HIV Screening Never done Hepatitis B Vaccine(2 of 3 - 3-dose series) due on 02/06/2002 Shingrix Vaccine(1 of 2) Never done Pap Testing Never done DTaP,Tdap,Td Vaccine(6 - Tdap) due on 01/09/2012 HPV Testing Never done Covid-19 Vaccine(3 - Pfizer risk series) due on 04/21/2021 Influenza Vaccine(1) Never done Mammogram Screening Never done Depression Assessment Never done Immunization History Administered Date(s) Administered COVID-19 original vaccine, age 12+ yr, monovalent (SumUp - PURPLE TOP) 03/05/2021 03/24/2021 Haemophilus influenzae b-hepatitis B (Hib-HepB) vaccine (COMVAX) 01/09/2002 diphtheria tetanus pertussis (DTP) vaccine 1983 04/07/1984 03/15/1986 diphtheria tetanus pertussis (DTaP) vaccine, unspecified formulation 04/24/1987 01/09/2002 measles mumps rubella (MMR) vaccine (M-M-R II, PRIORIX) 03/15/1986 07/09/1996 poliovirus (IPV) vaccine, inactivated (IPOL) 01/09/2002 poliovirus (OPV) vaccine, trivalent, live, oral (ORIMUNE) 1983 04/07/1984 03/15/1986 Current Outpatient Medications Medication Sig Dispense Refill gabapentin (NEURONTIN) 100 mg capsule Take 200 mg by mouth daily at bedtime. tiZANidine (ZANAFLEX) 4 mg tablet hydrOXYchloroQUINE (PLAQUENIL) 200 mg tablet Take 1 tablet by mouth twice daily. 180 tablet 3 methotrexate 2.5 mg tablet Take 6 tablets by mouth one time a week. 72 tablet 3 folic acid 1 mg tablet Take 1 tablet by mouth once daily. 90 tablet 3 atenolol (TENORMIN) 25 mg tablet FLUoxetine HCl (PROZAC) 40 mg capsule Take 40 mg by mouth. aspirin, enteric coated (ASPIRIN, ENTERIC COATED) 81 mg EC tablet q 24 HR. cholecalciferol, vitamin D3, (VITAMIN D3 ORAL) Take by mouth. predniSONE (DELTASONE) 2.5 mg tablet Take 1 tablet by mouth once daily. 30 tablet 0 No current facility-administered medications for this visit. ALLERGIES No Known Allergies Physical Exam: BP 115/72 Pulse 66 Temp (Src) 97.5 (Temporal) Ht 5' 4 (1.63m) Wt 239 lb 13.8 oz (108.8kg) BMI 41.15 kg/(m^2). General: Not pale, no jaundice, not in acute distress Head: Normocephalic, atraumatic Eyes: No redeye, no discharge ENT: No oral/nasal ulcer Neck: No lymphadenopathy Lungs: Normal breath sound, no adventitious sound Abdomen: Soft, not tender CV: Normal S1 S2, no murmur, no rub, pulse regular Skin: No rash, no malar rash, no telangiectasia, no pitting nail/onycholysis, no gross periungual telangiectasia Neuro: Grossly intact, motor power 5 all Joints LEFT Shoulder Full ROM, not tender Elbow Full ROM, not tender, not swollen Wrist Full ROM, not tender, not swollen 2nd MCP Not tender, not swollen 3rd MCP Not tender, not swollen 4th MCP Not tender, not swollen 5th MCP Not tender, not swollen 1st IP Not tender, not swollen 2nd PIP Not tender, not swollen 3rd PIP Not tender, not swollen 4th PIP Not tender, not swollen 5th PIP Not tender, not swollen 2nd DIP Not tender, not swollen 3rd DIP Not tender, not swollen 4th DIP Not tender, not swollen 5th DIP Not tender, not swollen Hip Full ROM Knee Full ROM, not tender, no effusion Ankle Not tender, not swollen Squeezing test Negative RIGHT Shoulder Full ROM, not tender Elbow Full ROM, not tender, not swollen Wrist Full ROM, not tender, not swollen 2nd MCP Not tender, not swollen 3rd MCP Not tender, not swollen 4th MCP Not tender, not swollen 5th MCP Not tender, not swollen 1st IP Not tender, not swollen 2nd PIP Not tender, not swollen 3rd PIP Not tender, not swollen 4th PIP Not tender, not swollen 5th PIP Not tender, not swollen 2nd DIP Not tender, not swollen 3rd DIP Not tender, not swollen 4th DIP Not tender, not swollen 5th DIP Not tender, not swollen Hip Full ROM Knee Full ROM, not tender, no effusion Ankle Not tender, not swollen Squeezing test Negative Impression: 1. Seropositive RA 2. High risk medication use She is in remission today. I will try to taper her prednisone down. I asked the patient to decrease prednisone to 2.5 mg daily for 1 month before stopping it. She should continue the current dose of hydroxychloroquine. She will ask her local bearing inspector to send ophthalmology report to me. Recommendations/Plan Plan discussed with patient Return Visit: Follow up Jul 13 at 2 PM in person I spent a total of 30 minutes on the date of the service which included preparing to see the patient, [id number] patient care, completing clinical documentation, obtaining and/or reviewing separately obtained history, performing a medically appropriate examination, counseling and educating the patient/family/caregiver, and ordering medications, tests, or procedures. Chela Joseph MD Referring Provider:Self PCP: Afia Figueroa CNP, FINGERPRINT CLASSIFIER Answers submitted by the patient for this visit: Review of Systems Rheumatology (Submitted on 12/22/2023) Fever : No Recent unintentional weight change: No Eye pain: No Eye redness: No Vision Disturbance: No Eye Dryness: No Nosebleeds: No Sores in your mouth: No Trouble Swallowing: No Dry Mouth: No Chest pain: No Leg Swelling: No A cough: No Shortness of breath: No Pain with breathing: No Heartburn: No Abdominal pain: No Diarrhea: No Black tarry stools: No Blood in urine: No Pain or burning with urination: No Joint pain or stiffness: Yes Muscle weakness: No Muscle aches: No Joint swelling: No Morning Stiffness in Joints: Yes A rash: No Skin Color Changes: No Hair Loss: No Nail Changes: No Headaches: No Numbness: No Memory Loss: No Swollen Glands: No documented in this encounter [facility] 10-10-2023 Miscellaneous Notes Most recent Rheumatology visit: 07/07/2023 (with Chela Baxtersert) Appt 11/17/2023 Recent Office Visits - This Specialty 07/07/2023 Seropositive rheumatoid arthritis (HCC) Rheumatology/Pulmonary Chela Joseph MD 08/11/2022 Trochanteric bursitis of left hip Rheumatology Chela Joseph MD 04/09/2022 Seropositive rheumatoid arthritis (HCC) Rheumatology Chela Joseph MD Upcoming Rheumatology Appointments - Next 365 Days Visit Type Date Time Department [facility] 11/17/2023 3:00 PM [facility]/PULM [facility] Last Ophthalmology Check for Plaquenil (Hydroxychloroquine) Last OCT Macula Exam No resulted procedures found. Last Visual Field Exam No resulted procedures found. CBC: CBC Latest Ref Rng & Units 07/07/2023 WBC 3.70 - 11.00 k/uL 8.71 HEMOGLOBIN 11.5 - 15.5 g/dL 14.2 HEMATOCRIT 36.0 - 46.0 % 41.4 PLATELETS 150 - 400 k/uL 266 ABS NEUT (ANC) 1.45 - 7.50 k/uL 4.82 ABS LYMPH 1.00 - 4.00 k/uL 2.82 Vitamin D: None on file in the last 6 months LFT: None on file in the last 6 months Hepatic Function: Creatinine: Creatinine Latest Ref Rng & Units 12/11/2021 07/07/2023 CREAT 0.58 - 0.96 mg/dL 0.65 0.76 ESR/CRP: ESR, WSR Latest Ref Rng & Units 12/11/2021 07/07/2023 WSR 0 - 20 mm/hr 8 9 CRP Latest Ref Rng & Units 12/11/2021 07/07/2023 CRP <0.9 mg/dL <0.3 0.4 Uric Acid: None on file in the last 6 months Open Standing (Multiple Instance) Lab Orders Remain Interval Expires Ordered Last Rel. ALT/SGPT [SQALT] 3/4 Every 3 months 07/06/24 07/07/23 07/07/23 Auth. provider: Chela Joseph MD Assoc. diagnoses: Seropositive rheumatoid arthritis (HCC) AST/SGOT BLD [SQAST] 3/4 Every 3 months 07/06/24 07/07/23 07/07/23 Auth. provider: Chela Joseph MD Assoc. diagnoses: Seropositive rheumatoid arthritis (HCC) CBC + DIFF [SQCBCDIF] 3/4 Every 3 months 07/06/24 07/07/23 07/07/23 Auth. provider: Chela Joseph MD Assoc. diagnoses: Seropositive rheumatoid arthritis (HCC) C-REACTIVE PROTEIN (CRP) [SQCRP] 3/4 Every 3 months 07/06/24 07/07/23 07/07/23 Auth. provider: Chela Joseph MD Assoc. diagnoses: Seropositive rheumatoid arthritis (HCC) SED RATE WESTERGREN [SQWSR] 3/4 Every 3 months 07/06/24 07/07/23 07/07/23 Auth. provider: Chela Joseph MD Assoc. diagnoses: Seropositive rheumatoid arthritis (HCC) CREATININE BLD [SQCRET] 3/4 Every 3 months 07/06/24 07/07/23 07/07/23 Auth. provider: Chela Joseph MD Assoc. diagnoses: Seropositive rheumatoid arthritis (HCC) BUN BLOOD [SQBUN] 3/4 Every 3 months 07/06/24 07/07/23 07/07/23 Auth. provider: Chela Joseph MD Assoc. diagnoses: Seropositive rheumatoid arthritis (HCC) Open Future (Single Instance) Lab Orders None documented in this encounter [facility] 10-10-2023 Miscellaneous Notes Most recent Rheumatology visit: 07/07/2023 (with Chela Joseph) Appt 11/17/2023 Recent Office Visits - This Specialty 07/07/2023 Seropositive rheumatoid arthritis (HCC) Rheumatology/Pulmonary Chela Joseph MD 08/11/2022 Trochanteric bursitis of left hip Rheumatology Chela Joseph MD 04/09/2022 Seropositive rheumatoid arthritis (HCC) Rheumatology Chela Joseph MD Upcoming Rheumatology Appointments - Next 365 Days Visit Type Date Time Department [facility] 11/17/2023 3:00 PM [facility]PULM [facility] Last Ophthalmology Check for Plaquenil (Hydroxychloroquine) Last OCT Macula Exam No resulted procedures found. Last Visual Field Exam No resulted procedures found. CBC: CBC Latest Ref Rng & Units 07/07/2023 WBC 3.70 - 11.00 k/uL 8.71 HEMOGLOBIN 11.5 - 15.5 g/dL 14.2 HEMATOCRIT 36.0 - 46.0 % 41.4 PLATELETS 150 - 400 k/uL 266 ABS NEUT (ANC) 1.45 - 7.50 k/uL 4.82 ABS LYMPH 1.00 - 4.00 k/uL 2.82 Vitamin D: None on file in the last 6 months LFT: None on file in the last 6 months Hepatic Function: Creatinine: Creatinine Latest Ref Rng & Units 12/11/2021 07/07/2023 CREAT 0.58 - 0.96 mg/dL 0.65 0.76 ESR/CRP: ESR, WSR Latest Ref Rng & Units 12/11/2021 07/07/2023 WSR 0 - 20 mm/hr 8 9 CRP Latest Ref Rng & Units 12/11/2021 07/07/2023 CRP <0.9 mg/dL <0.3 0.4 Uric Acid: None on file in the last 6 months Open Standing (Multiple Instance) Lab Orders Remain Interval Expires Ordered Last Rel. ALT/SGPT [SQALT] 3/4 Every 3 months 07/06/24 07/07/23 07/07/23 Auth. provider: Chela Joseph MD Assoc. diagnoses: Seropositive rheumatoid arthritis (HCC) AST/SGOT BLD [SQAST] 3/4 Every 3 months 08/07/07/23 07/07/23 Auth. provider: Chela Joseph MD Assoc. diagnoses: Seropositive rheumatoid arthritis (HCC) CBC + DIFF [SQCBCDIF] 3/4 Every 3 months 07/06/24 07/07/23 07/07/23 Auth. provider: Chela Joseph MD Assoc. diagnoses: Seropositive rheumatoid arthritis (HCC) C-REACTIVE PROTEIN (CRP) [SQCRP] 3/4 Every 3 months 07/06/24 07/07/23 07/07/23 Auth. provider: Chela Joseph MD Assoc. diagnoses: Seropositive rheumatoid arthritis (HCC) SED RATE WESTERGREN [SQWSR] 3/4 Every 3 months 07/06/24 07/07/23 07/07/23 Auth. provider: Chela Joseph MD Assoc. diagnoses: Seropositive rheumatoid arthritis (HCC) CREATININE BLD [SQCRET] 3/4 Every 3 months 07/06/24 07/07/23 07/07/23 Auth. provider: Chela Joseph MD Assoc. diagnoses: Seropositive rheumatoid arthritis (HCC) BUN BLOOD [SQBUN] 3/4 Every 3 months 07/06/24 07/07/23 07/07/23 Auth. provider: Chela Joseph MD Assoc. diagnoses: Seropositive rheumatoid arthritis (HCC) Open Future (Single Instance) Lab Orders None documented in this encounter [facility] 07-07-2023 Note HNO ID: [id number] Author: Chela Joseph MD Service: ? Author Type: Physician Type: Progress Notes Filed: 07/07/2023 4:23 PM Note Text: MD Carlotta Moyer July 07, 2023 Referring Provider: PCP: Afia Figueroa, FINGERPRINT CLASSIFIER, FINGERPRINT CLASSIFIER Chief Complaint: Patient presents with: Follow Up Background Rheumatologic History: I first saw her 12/11/21 She started to have pain in her right hand associated with swelling about 4 months ago. The pain is usually active worse in the morning associated with at least an hour of morning stiffness. The pain later spread to the left hand, both knees, both feet and both ankles. She has been using meloxicam with no benefit. About 2 weeks ago, her primary care doctor decided to put her on low-dose prednisone. It has been helping. Her pain is down by 50%. She complains of facial erythema but no rash anywhere else. No inflammatory eye disease or inflammatory bowel disease. The patient denies family history of RA, SLE, , psoriasis, IBD, uveitis, other autoimmune diseases. Labs + CARINA RF > 650 CCP 65 Elevated sed rate I started HCQ and lower pred to 5 mg. F/U 04/09/22 Significantly better. I stopped pred and continued HCQ. MyChart 05/28/22 Flare. Started MTX. Restarted pred 5 mg. F/U 08/11/22 I think her rheumatoid arthritis is in remission today. Examination does not reveal any evidence of active synovitis. Surveillance labs from last month were also unremarkable. I will continue the current treatment with methotrexate, Plaquenil and prednisone 5 mg daily. Her hip pain is caused by trochanteric bursitis. I will do cortisone injection for her today. Interim History: Patient returns for follow up, last visit Visit date not found. She did not return for follow-up in December but continue to take her medications. She continued to do well without peripheral joint pain (except for the pain from bursitis) until she ran out of her Plaquenil and prednisone (about a month ago) that her hand and foot pain and swelling started to act up again. No past medical history on file. No past surgical history on file. Social History Tobacco Use Smoking status: Never Smokeless tobacco: Never Health Maintenance PNEUMOCOCCAL(1 - PCV) Never done HIV SCREENING Never done HEPATITIS B(2 of 3 - 3-dose series) due on 02/06/2002 SHINGRIX VACCINE(1 of 2) Never done PAP TESTING Never done DTAP,TDAP,TD(6 - Tdap) due on 01/09/2012 HPV TESTING Never done COVID-19 VACCINE(3 - Pfizer risk series) due on 04/21/2021 DEPRESSION ASSESSMENT Never done Immunization History Administered Date(s) Administered COVID-19 original vaccine, age 12+ yr, monovalent (SumUp - PURPLE TOP) 03/05/2021 03/24/2021 Haemophilus influenzae b-hepatitis B (Hib-HepB) vaccine (COMVAX) 01/09/2002 diphtheria tetanus pertussis (DTP) vaccine 1983 04/07/1984 03/15/1986 diphtheria tetanus pertussis (DTaP) vaccine, unspecified formulation 04/24/1987 01/09/2002 measles mumps rubella (MMR) vaccine (M-M-R II, PRIORIX) 03/15/1986 07/09/1996 poliovirus (IPV) vaccine, inactivated (IPOL) 01/09/2002 poliovirus (OPV) vaccine, trivalent, live, oral (ORIMUNE) 1983 04/07/1984 03/15/1986 Current Outpatient Medications Medication Sig Dispense Refill gabapentin (NEURONTIN) 100 mg capsule Take 200 mg by mouth daily at bedtime. tiZANidine (ZANAFLEX) 4 mg tablet atenolol (TENORMIN) 25 mg tablet FLUoxetine HCl (PROZAC) 40 mg capsule Take 40 mg by mouth. aspirin, enteric coated (ASPIRIN, ENTERIC COATED) 81 mg EC tablet q 24 HR. cholecalciferol, vitamin D3, (VITAMIN D3 ORAL) Take by mouth. hydrOXYchloroQUINE (PLAQUENIL) 200 mg tablet Take 1 tablet by mouth twice daily. 180 tablet 3 methotrexate 2.5 mg tablet Take 6 tablets by mouth one time a week. 72 tablet 3 folic acid 1 mg tablet Take 1 tablet by mouth once daily. 90 tablet 3 predniSONE (DELTASONE) 5 mg tablet Take 1 tablet by mouth once daily. 120 tablet 0 No current facility-administered medications for this visit. ALLERGIES No Known Allergies Physical Exam: BP 112/60 Pulse 76 Temp (Src) 97.2 (Temporal) Resp 16 Wt 231 lb (104.8kg) SpO2 98% General: Not pale, no jaundice, not in acute distress Head: Normocephalic, atraumatic Eyes: No redeye, no discharge ENT: No oral/nasal ulcer Neck: No lymphadenopathy Lungs: Normal breath sound, no adventitious sound Abdomen: Soft, not tender CV: Normal S1 S2, no murmur, no rub, pulse regular Skin: No rash, no malar rash, no telangiectasia, no pitting nail/onycholysis, no gross periungual telangiectasia Neuro: Grossly intact, motor power 5 all Joints LEFT Shoulder Full ROM, not tender Elbow Full ROM, not tender, not swollen Wrist Full ROM, mild tender, mild swollen 2nd MCP mild tender, mild swollen 3rd MCP mild tender, mild swollen 4th MCP Not tender, not swollen 5th MCP Not tender, not swollen (more content not included)... [facility] 07-07-2023 Instructions Chela Joseph MD - 07/07/2023 4:09 PM EDT Follow up Oct 13 at 8.30 documented in this encounter [facility] 07-07-2023 History of Present illness Narrative MD Carlotta Moyer July 07, 2023 Referring Provider: PCP: Afia Figueroa, CHARLIE, FINGERPRINT CLASSIFIER Chief Complaint: Patient presents with: Follow Up Background Rheumatologic History: I first saw her 12/11/21 She started to have pain in her right hand associated with swelling about 4 months ago. The pain is usually active worse in the morning associated with at least an hour of morning stiffness. The pain later spread to the left hand, both knees, both feet and both ankles. She has been using meloxicam with no benefit. About 2 weeks ago, her primary care doctor decided to put her on low-dose prednisone. It has been helping. Her pain is down by 50%. She complains of facial erythema but no rash anywhere else. No inflammatory eye disease or inflammatory bowel disease. The patient denies family history of RA, SLE, , psoriasis, IBD, uveitis, other autoimmune diseases. Labs + CARINA RF > 650 CCP 65 Elevated sed rate I started HCQ and lower pred to 5 mg. F/U 04/09/22 Significantly better. I stopped pred and continued HCQ. MyChart 05/28/22 Flare. Started MTX. Restarted pred 5 mg. F/U 08/11/22 I think her rheumatoid arthritis is in remission today. Examination does not reveal any evidence of active synovitis. Surveillance labs from last month were also unremarkable. I will continue the current treatment with methotrexate, Plaquenil and prednisone 5 mg daily. Her hip pain is caused by trochanteric bursitis. I will do cortisone injection for her today. Interim History: Patient returns for follow up, last visit Visit date not found. She did not return for follow-up in December but continue to take her medications. She continued to do well without peripheral joint pain (except for the pain from bursitis) until she ran out of her Plaquenil and prednisone (about a month ago) that her hand and foot pain and swelling started to act up again. No past medical history on file. No past surgical history on file. Social History Tobacco Use Smoking status: Never Smokeless tobacco: Never Health Maintenance PNEUMOCOCCAL(1 - PCV) Never done HIV SCREENING Never done HEPATITIS B(2 of 3 - 3-dose series) due on 02/06/2002 SHINGRIX VACCINE(1 of 2) Never done PAP TESTING Never done DTAP,TDAP,TD(6 - Tdap) due on 01/09/2012 HPV TESTING Never done COVID-19 VACCINE(3 - Pfizer risk series) due on 04/21/2021 DEPRESSION ASSESSMENT Never done Immunization History Administered Date(s) Administered COVID-19 original vaccine, age 12+ yr, monovalent ([employer] - PURPLE TOP) 03/05/2021 03/24/2021 Haemophilus influenzae b-hepatitis B (Hib-HepB) vaccine (COMVAX) 01/09/2002 diphtheria tetanus pertussis (DTP) vaccine 1983 04/07/1984 03/15/1986 diphtheria tetanus pertussis (DTaP) vaccine, unspecified formulation 04/24/1987 01/09/2002 measles mumps rubella (MMR) vaccine (M-M-R II, PRIORIX) 03/15/1986 07/09/1996 poliovirus (IPV) vaccine, inactivated (IPOL) 01/09/2002 poliovirus (OPV) vaccine, trivalent, live, oral (ORIMUNE) 1983 04/07/1984 03/15/1986 Current Outpatient Medications Medication Sig Dispense Refill gabapentin (NEURONTIN) 100 mg capsule Take 200 mg by mouth daily at bedtime. tiZANidine (ZANAFLEX) 4 mg tablet atenolol (TENORMIN) 25 mg tablet FLUoxetine HCl (PROZAC) 40 mg capsule Take 40 mg by mouth. aspirin, enteric coated (ASPIRIN, ENTERIC COATED) 81 mg EC tablet q 24 HR. cholecalciferol, vitamin D3, (VITAMIN D3 ORAL) Take by mouth. hydrOXYchloroQUINE (PLAQUENIL) 200 mg tablet Take 1 tablet by mouth twice daily. 180 tablet 3 methotrexate 2.5 mg tablet Take 6 tablets by mouth one time a week. 72 tablet 3 folic acid 1 mg tablet Take 1 tablet by mouth once daily. 90 tablet 3 predniSONE (DELTASONE) 5 mg tablet Take 1 tablet by mouth once daily. 120 tablet 0 No current facility-administered medications for this visit. ALLERGIES No Known Allergies Physical Exam: BP 112/60 Pulse 76 Temp (Src) 97.2 (Temporal) Resp 16 Wt 231 lb (104.8kg) SpO2 98% General: Not pale, no jaundice, not in acute distress Head: Normocephalic, atraumatic Eyes: No redeye, no discharge ENT: No oral/nasal ulcer Neck: No lymphadenopathy Lungs: Normal breath sound, no adventitious sound Abdomen: Soft, not tender CV: Normal S1 S2, no murmur, no rub, pulse regular Skin: No rash, no malar rash, no telangiectasia, no pitting nail/onycholysis, no gross periungual telangiectasia Neuro: Grossly intact, motor power 5 all Joints LEFT Shoulder Full ROM, not tender Elbow Full ROM, not tender, not swollen Wrist Full ROM, mild tender, mild swollen 2nd MCP mild tender, mild swollen 3rd MCP mild tender, mild swollen 4th MCP Not tender, not swollen 5th MCP Not tender, not swollen 1st IP Not tender, not swollen 2nd PIP mild tender, mild swollen 3rd PIP mild tender, mild swollen 4th PIP Not tender, not swollen 5th PIP Not tender, not swollen 2nd DIP Not tender, not swollen 3rd DIP Not tender, not swollen 4th DIP Not tender, not swollen 5th DIP Not tender, not swollen Hip Full ROM, marked tenderness over trochanteric bursa Knee Full ROM, not tender, no effusion Ankle mild tender, mild swollen Squeezing test positive RIGHT Shoulder Full ROM, not tender Elbow Full ROM, not tender, not swollen Wrist Full ROM, mild tender, mild swollen 2nd MCP mild tender, mild swollen 3rd MCP mild tender, mild swollen 4th MCP Not tender, not swollen 5th MCP Not tender, not swollen 1st IP Not tender, not swollen 2nd PIP mild tender, mild swollen 3rd PIP mild tender, mild swollen 4th PIP Not tender, not swollen 5th PIP Not tender, not swollen 2nd DIP Not tender, not swollen 3rd DIP Not tender, not swollen 4th DIP Not tender, not swollen 5th DIP Not tender, not swollen Hip FullROM Knee Full ROM, not tender, no effusion Ankle mild tender, mild swollen Squeezing test positive Impression: 1. Seropositive RA 2. High risk medication use 3. Left greater trochanteric bursitis Her rheumatoid arthritis is active again today. This is not surprising given that she ran out of her medications a month ago. I will refill of the medications for her today including low-dose steroid. If her RA improved by next visit, I plan to gradually taper her prednisone down. Recommendations/Plan Plan discussed with patient Return Visit: In person follow up Oct 13 at 8.30 I spent a total of 30 minutes on the date of the service which included preparing to see the patient, [id number] patient care, completing clinical documentation, obtaining and/or reviewing separately obtained history, performing a medically appropriate examination, counseling and educating the patient/family/caregiver, and ordering medications, tests, or procedures. Chela Joseph MD Referring Provider: PCP: Afia Figueroa CNP, CNP documented in this encounter [facility] 08-11-2022 History of Present illness Narrative Associated Order(s): Large Joint Arthro/Inj: L greater trochanteric bursa Post-Procedure Diagnose(s): Seropositive rheumatoid arthritis (HCC); High risk medication use; Trochanteric bursitis of left hip MD Carlotta Moyer August 10, 2022 Referring Provider:Self PCP: Afia Figueroa CNP, CNP Chief Complaint: Patient presents with: Joint Pain Background Rheumatologic History: I first saw her 12/11/21 She started to have pain in her right hand associated with swelling about 4 months ago. The pain is usually active worse in the morning associated with at least an hour of morning stiffness. The pain later spread to the left hand, both knees, both feet and both ankles. She has been using meloxicam with no benefit. About 2 weeks ago, her primary care doctor decided to put her on low-dose prednisone. It has been helping. Her pain is down by 50%. She complains of facial erythema but no rash anywhere else. No inflammatory eye disease or inflammatory bowel disease. The patient denies family history of RA, SLE, , psoriasis, IBD, uveitis, other autoimmune diseases. Labs + CARINA RF > 650 CCP 65 Elevated sed rate I started HCQ and lower pred to 5 mg. F/U 04/09/22 Significantly better. I stopped pred and continued HCQ. MyChart 05/28/22 Flare. Started MTX. Restarted pred 5 mg. Interim History: Patient returns for follow up, last visit 04/09/2022. She has been doing better after we restarted prednisone and started methotrexate. Pain in her hands and feet are essentially gone. However, she continues have significant pain in her left hip. It affects her sleep significantly. No past medical history on file. No past surgical history on file. Social History Tobacco Use Smoking status: Never Smokeless tobacco: Never Health Maintenance PNEUMOCOCCAL(1 - PCV) Never done HIV SCREENING Never done HEPATITIS B(2 of 3 - 3-dose series) due on 02/06/2002 SHINGRIX VACCINE(1 of 2) Never done PAP TESTING Never done DTAP,TDAP,TD(6 - Tdap) due on 01/09/2012 HPV TESTING Never done COVID-19 VACCINE(3 - Pfizer risk series) due on 04/21/2021 DEPRESSION ASSESSMENT Never done INFLUENZA(1) due on 07/15/2022 Immunization History Administered Date(s) Administered COVID-19 original vaccine, age 12+ yr, monovalent ([employer] - PURPLE TOP) 03/05/2021 03/24/2021 DTP 1983 04/07/1984 03/15/1986 DTaP, unspecified formulation 04/24/1987 01/09/2002 Hib-HepB 01/09/2002 IPV 01/09/2002 OPV 1983 04/07/1984 03/15/1986 measles mumps rubella (MMR) vaccine (M-M-R II, PRIORIX) 03/15/1986 07/09/1996 Current Outpatient Medications Medication Sig Dispense Refill methotrexate 2.5 mg tablet Take 6 tablets by mouth one time a week. 72 tablet 3 predniSONE (DELTASONE) 5 mg tablet Take 1 tablet by mouth once daily. 90 tablet 3 folic acid 1 mg tablet Take 1 tablet by mouth once daily. 90 tablet 3 hydrOXYchloroQUINE (PLAQUENIL) 200 mg tablet Take 1 tablet by mouth twice daily. 180 tablet 3 atenolol (TENORMIN) 25 mg tablet aspirin, enteric coated (ASPIRIN, ENTERIC COATED) 81 mg EC tablet q 24 HR. omega-3s/dha/epa/fish oil (OMEGA 3 ORAL) Take by mouth. cholecalciferol, vitamin D3, (VITAMIN D3 ORAL) Take by mouth. FLUoxetine HCl (PROZAC) 40 mg capsule Take 40 mg by mouth. (Patient not taking: Reported on 08/11/2022) No current facility-administered medications for this visit. ALLERGIES No Known Allergies Physical Exam: BP 114/61 Pulse 68 Temp (Src) 97.9 (Temporal) Ht 5' 3 (1.60m) Wt 214 lb (97.1kg) BMI 37.92 kg/(m^2). General: Not pale, no jaundice, not in acute distress Head: Normocephalic, atraumatic Eyes: No redeye, no discharge ENT: No oral/nasal ulcer Neck: No lymphadenopathy Lungs: Normal breath sound, no adventitious sound Abdomen: Soft, not tender CV: Normal S1 S2, no murmur, no rub, pulse regular Skin: No rash, no malar rash, no telangiectasia, no pitting nail/onycholysis, no gross periungual telangiectasia Neuro: Grossly intact, motor power 5 all Joints LEFT Shoulder Full ROM, not tender Elbow Full ROM, not tender, not swollen Wrist Full ROM, not tender, not swollen 2nd MCP Not tender, not swollen 3rd MCP Not tender, not swollen 4th MCP Not tender, not swollen 5th MCP Not tender, not swollen 1st IP Not tender, not swollen 2nd PIP Not tender, not swollen 3rd PIP Not tender, not swollen 4th PIP Not tender, not swollen 5th PIP Not tender, not swollen 2nd DIP Not tender, not swollen 3rd DIP Not tender, not swollen 4th DIP Not tender, not swollen 5th DIP Not tender, not swollen Hip Full ROM, marked tenderness over trochanteric bursa Knee Full ROM, not tender, no effusion Ankle Not tender, not swollen Squeezing test Negative RIGHT Shoulder Full ROM, not tender Elbow Full ROM, not tender, not swollen Wrist Full ROM, not tender, not swollen 2nd MCP Not tender, not swollen 3rd MCP Not tender, not swollen 4th MCP Not tender, not swollen 5th MCP Not tender, not swollen 1st IP Not tender, not swollen 2nd PIP Not tender, not swollen 3rd PIP Not tender, not swollen 4th PIP Not tender, not swollen 5th PIP Not tender, not swollen 2nd DIP Not tender, not swollen 3rd DIP Not tender, not swollen 4th DIP Not tender, not swollen 5th DIP Not tender, not swollen Hip Full ROM Knee Full ROM, not tender, no effusion Ankle Not tender, not swollen Squeezing test Negative Impression: 1. Seropositive RA 2. High risk medication use 3. Left greater trochanteric bursitis I think her rheumatoid arthritis is in remission today. Examination does not reveal any evidence of active synovitis. Surveillance labs from last month were also unremarkable. I will continue the current treatment with methotrexate, Plaquenil and prednisone 5 mg daily. Her hip pain is caused by trochanteric bursitis. I will do cortisone injection for her today. Recommendations/Plan Plan discussed with patient Return Visit: December 22 at 4 PM in person. I spent a total of 40 minutes on the date of the service which included preparing to see the patient, [id number] patient care, completing clinical documentation, obtaining and/or reviewing separately obtained history, performing a medically appropriate examination, counseling and educating the patient/family/caregiver, and ordering medications, tests, or procedures. Chela Joseph MD Referring Provider:Self PCP: Afia Figueroa CNP, FINGERPRINT CLASSIFIER Answers submitted by the patient for this visit: Review of Systems Rheumatology (Submitted on 08/08/2022) Fever : No Recent Unintentional Weight Change: No Eye Pain: No Eye Redness: No Vision Disturbance: No Eye Dryness: No Nose Bleeds: No Sores in your Mouth: No Trouble Swallowing: No Dry Mouth: No Chest Pain: No Leg Swelling: No A Cough: No Shortness of Breath: No Pain with Breathing: No Heartburn: Yes Abdominal Pain: No Diarrhea: No Black Tarry Stools: No Blood in Urine: No Pain or Burning with Urination: No Joint Pain or Stiffness: Yes Muscle Weakness: No Muscle Aches: No Joint Swelling: No Morning Stiffness in Joints: Yes A Rash: No Skin Color Changes: No Hair Loss: No Nail Changes: No Headaches: Yes Numbness: No Memory Loss: No Swollen Glands: No Large Joint Arthro/Inj: L greater trochanteric bursa Informed Consent Consent Obtained: Verbal Starke Protocol A moment to CARE was completed. SIGN IN Personnel directly involved with the procedure wore the appropriate PPE. Special Equipment: N/A Patient/Surrogate Stated/Verified: Patient name, Date of , Relevant allergies and Intended procedure TIME OUT Intended patient and procedure match the source document(s). Consent documented and matches the intended procedure. Relevant labs, photos, and/or imaging studies have been reviewed. Correct side/site marked and visible. Medications required for procedure verified. No fire risk assessment and interventions applicable. No implant(s) inserted. 08/11/2022 4:54 PM The procedure site was prepped in the usual sterile fashion. Site: L greater trochanteric bursa Medications: 80 mg methylPREDNISolone acetate 80 mg/mL Anesthetics: 2 mL lidocaine (PF) 10 mg/mL (1 %) Outcome: Tolerated well, no immediate complications Post-injection instructions were reviewed with the patient and the patient voiced understanding of these instructions. SIGN OUT No specimen collected. No instruments, equipment or retained foreign bodies applicable. Post-procedure follow-up management communicated and Plan of Care Visit completed when applicable documented in this encounter [facility] 06-15-2022 Note OPERATIVE NOTE OPERATION DATE: 06/15/2022 PRIMARY CARE PROVIDER: Afia Figueroa CNP SURGEON: Dalila Montes M.D. PREOPERATIVE DIAGNOSIS: Bilateral eustachian tube dysfunction and right middle ear foreign body. POSTOPERATIVE DIAGNOSIS: Bilateral eustachian tube dysfunction and right middle ear foreign body. PROCEDURE: Right tympanotomy and removal of middle ear foreign body and bilateral myringotomy and tubes. ANESTHESIA: General mask. COMPLICATIONS: None. FINDINGS: Modified Emery's T-tube in the right anterior middle ear and severe bilateral tympanic membrane retraction. INDICATIONS: This 36-year-old woman has a long history of chronic eustachian tube dysfunction and presented after extrusion of her old tubes. She was noted, however, on the right hand side, to have a tube within the middle ear, due to Q-Tip use. Patient required new tubes due to her underlying eustachian tube dysfunction. PROCEDURE: Patient identified in the holding area and taken back to the OR where she was placed in a supine position. After induction of general anesthesia, the right ear was approached with the otomicroscope. Tympanotomy was performed and then, under direct microscopic guidance, an alligator forcep was used to grasp an old modified Emery's T-tube from the anterior middle ear and it was removed. A new modified Emery's T-tube was then inserted through the tympanotomy and opened in the middle ear using microdissection. Attention was then turned to the left ear. The left ear was approached with the otomicroscope. An anterior radial myringotomy was performed and a modified Emery's T-tube was folded, inserted in the middle ear and opened in the middle ear using microdissection. Patient was then awakened and taken to the recovery room in good condition. [facility] 03-23-2022 Miscellaneous Notes Most recent Rheumatology visit: 12/11/2021 (with Patompong Ungprasert) Upcoming Rheumatology Appointments - Next 365 Days Visit Type Date Time Department [facility] 04[facility]09[facility]22 4[facility] Last Ophthalmology Check for Plaquenil (Hydroxychloroquine) Last OCT Macula Exam No resulted procedures found. Last Visual Field Exam No resulted procedures found. CBC: None on file in the last 6 months Vitamin D: None on file in the last 6 months LFT: None on file in the last 6 months Creatinine: Creatinine Latest Ref Rng & Units 12/11/2021 CREAT 0.58 - 0.96 mg/dL 0.65 ESR/CRP: ESR, WSR Latest Ref Rng & Units 12/11/2021 WSR 0 - 20 mm/hr 8 CRP Latest Ref Rng & Units 12/11/2021 CRP <0.9 mg/dL <0.3 Uric Acid: None on file in the last 6 months Open Standing (Multiple Instance) Lab Orders None Open Future (Single Instance) Lab Orders None Gracie Ernandez RN documented in this encounter [facility] Evaluation note Diagnosis Seropositive rheumatoid arthritis (HCC) Rheumatoid arthritis [facility] Seropositive rheumatoid arthritis (HCC)- Primary Rheumatoid arthritis [facility] Trochanteric bursitis of left hip- Primary Enthesopathy of hip region Seropositive rheumatoid arthritis (HCC) Rheumatoid arthritis High risk medication use Encounter for long-term (current) use of other medications [facility] Diagnosis Seropositive rheumatoid arthritis (HCC)- Primary Rheumatoid arthritis High risk medication use Encounter for long-term (current) use of other medications Trochanteric bursitis of left hip Enthesopathy of hip region documented in this encounter [facility] note* Diagnosis Seropositive rheumatoid arthritis (HCC) Rheumatoid arthritis documented in this encounter [facility] note* Diagnosis Seropositive rheumatoid arthritis (HCC) Rheumatoid arthritis [facility] [place] [facility] Diagnosis Seropositive rheumatoid arthritis (HCC)- Primary Rheumatoid arthritis High risk medication use Encounter for long-term (current) use of other medications documented in this encounter [facility] note* Diagnosis KYLE (obstructive sleep apnea)- Primary Obstructive sleep apnea (adult) (pediatric) Encounter for screening mammogram for malignant neoplasm of breast Morbid (severe) obesity due to excess calories (E66.01) Body mass index [BMI] 40.0-44.9, adult (Z68.41) 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) Cervical pain (neck) Cervicalgia Heart palpitations Palpitations Rheumatoid arthritis involving both hands with positive rheumatoid factor (CMS/HCC) Anxiety and depression (CMS/HCC) Other headache syndrome documented in this encounter [facility] Summary Purpose Family History No Family History Records FoundNo Family History Records FoundNo Family History Records FoundNo Family History Records FoundNo Family History Records FoundNo Family History Records Found Advance Directives No Advanced Directives Records FoundNo Advanced Directives Records FoundNo Advanced Directives Records FoundNo Advanced Directives Records FoundNo Advanced Directives Records FoundNo Advanced Directives Records Found Medications Administered Section Inactive Administered Medications - up to 3 most recent administrations Medication Order MAR Action Action Date Dose Rate Site lidocaine (PF) 10 mg/mL (1 %) 2 mL injection (XYLOCAINE) 2 mL, Injection - FOR ORTHO USE ONLY, ONE TIME INJECTION, 1 dose, Starting on Tue08/11/22 at 1654, Until Tue08/11/22 at 1654 Given 08/11/2022 4:54 PM EDT 2 mL Hi p, Left methylPREDNISolone acetate 80 mg injection (DEPO-Medrol) 80 mg, Injection - FOR ORTHO USE ONLY, ONE TIME INJECTION, 1 dose, Starting on Tue08/11/22 at 1654, Until Tue08/11/22 at 1654 Given 08/11/2022 4:54 PM EDT 80 mg Hi p, Left Additional Source Comments INFORMATION SOURCE (unrecogn ized section and content) DATE CREATED AUTHOR 10/19/2019 [facility] DATE CREATED AUTHOR AUTHOR'S ORGANIZ ATION 11/18/2022 [facility] DATE CREATED AUTHOR AUTHOR'S ORGANIZ ATION 03/24/2023 [facility] DATE CREATED AUTHOR AUTHOR'S ORGANIZ ATION 12/25/2023 [facility] DATE CREATED AUTHOR AUTHOR'S ORGANIZ ATION 03/31/2024 [facility] DATE CREATED AUTHOR AUTHOR'S ORGANIZ ATION 05/11/2024 [facility] Source Comments (unrecognize d section and content) In the event this informatio n is protected by the Federal Confidentiality of Alcohol and Drug Abuse Patient Records regulations: The Federal rules restrict any use of the information to criminally investigate or prosecute any alcohol or drug abuse patient.[facility] HospitalIn the event this information is protected by the Federal Confidentiality of Alcohol and Drug Abuse Patient Records regulations: The Federal rules restrict any use of the information to criminally investigate or prosecute any alcohol or drug abuse patient.[facility] the event this information is protected by the Federal Confidentiality of Alcohol and Drug Abuse Patient Records regulations: The Federal rules restrict any use of the information to criminally investigate or prosecute any alcohol or drug abuse patient.[facility] the event this information is protected by the Federal Confidentiality of Alcohol and Drug Abuse Patient Records regulations: The Federal rules restrict any use of the information to criminally investigate or prosecute any alcohol or drug abuse patient.[facility] the event this information is protected by the Federal Confidentiality of Alcohol and Drug Abuse Patient Records regulations: The Federal rules restrict any use of the information to criminally investigate or prosecute any alcohol or drug abuse patient.[facility] the event this information is protected by the Federal Confidentiality of Alcohol and Drug Abuse Patient Records regulations: The Federal rules restrict any use of the information to criminally investigate or prosecute any alcohol or drug abuse patient.[facility] Hospital[facility] the event this information is protected by the Federal Confidentiality of Alcohol and Drug Abuse Patient Records regulations: The Federal rules restrict any use of the information to criminally investigate or prosecute any alcohol or drug abuse patient.[facility] Reason for Visit (unrecogniz ed section and content) Reason Onset Date Comments Refill Request 03/22/2022 Reason Comments Joint Pain Reason Comments Follow Up Reason Onset Date Comments Refill Request 10/07/2023 Reason Onset Date Comments Refill Request 10/10/2023 Care Teams (unrecognized sec tion and content) Management Department Chair Relationship Specialty Start Date End Date Afia Figueroa CNP [address] [place] [address] PCP - General Family Practice 04/09/22 Management Department Chair Relationship Specialty Start Date End Date Afia Figueroa CNP [address] [place] [address] PCP - General Family Medicine 04/09/22 Management Department Chair Relationship Specialty Start Date End Date Afia Figueroa CNP [address] [place] [address] PCP - General Family Medicine 04/09/22 Management Department Chair Relationship Specialty Start Date End Date Afia Figueroa CNP [address] [place] [address] PCP - General Family Medicine 04/09/22 Management Department Chair Relationship Specialty Start Date End Date Afia Figueroa CNP [address] [place] [address] PCP - General Family Medicine 04/09/22 Management Department Chair Relationship Specialty Start Date End Date Afia Figueroa CNP [address] [place] [address] PCP - General [facility] Medicine 04/09/22 Management Department Chair Relationship Specialty Start Date End Date Ty Mai MD [address] [place] [phone] PCP - General Family [facility] 12/23/23 Afia Figueroa NP [address] [place] [phone] Nurse Practitioner [facility] 11/14/22 Management Department Chair Relationship Specialty Start Date End Date Ty Mai MD [address] [place] [phone] PCP - [facility] 12/23/23 Afia Figueroa NP [address] [place] [phone] Nurse Practitioner [facility] 11/14/22 FOR RECORDS PERTAINING TO PATIENTS WHO ARE OR HAVE BEEN ENROLLED IN A CHEMICAL DEPENDENCY/SUBSTANCEABUSE PROGRAM, SOME INFORMATION MAY BE OMITTED. This clinical summary was aggregated from multiple sources. Caution should be exercised in using it in the provision of clinical care. This summary normalizes information from multiple sources, and as a consequence, information in this document may materially change the coding, format and clinical context of patient data. In addition, data may be omitted in some cases. CLINICAL DECISIONS SHOULD BE BASED ON THE PRIMARY CLINICAL RECORDS. [employer] [facility]. provides no warranty or guarantee of the accuracy or completeness of information in this document.
== END 2024-05-14 11:11 | disposition home or self-care (01) ==
LOC: MAMMO 11:10
PROVIDERS: PCP Nurse Practitioner; Visit Provider Nurse Practitioner
DX: Z12.31 Encounter for screening mammogram for malignant neoplasm of breast (principal); Z80.0 Family history of malignant neoplasm of digestive organs; Z80.1 Family history of malignant neoplasm of trachea, bronchus and lung
CPT/HCPCS: 77063; 77067

== ENCOUNTER 2024-07-31 23:51 | Emergency (ER) | payer OTHER, MEDICAID, SELFPAY ==
[2024-07-31 23:58] VITALS: BP 134/99; PULSE 76; TEMP 36.6; O2SAT 97; BMI 37.2
--- NOTE | 2024-08-01 00:15 | ED_ITS ---
HPI HPI - General Adult General Chief complaint: Headache Stated complaint: headache Time Seen by Provider: 07/31/24 23:59 Source: patient Mode of arrival: walk-in Limitations: no limitations History of Present Illness HPI narrative: This 39-year-old female with a history of migraine headaches presents for evaluation of a migraine headache for the past 3 days. It is a typical migraine for her. She states she feels like she is being punched in the head. It is associated with nausea, vomiting, photophobia and phonophobia. She has not had a fever. She has no focal neurologic symptoms. She has formally been seen by neurology but is not on any migraine prophylaxis at this time. She states when the headache started she was using Tylenol and Motrin and then got Excedrin Migraine but nothing has helped so far. She has no chest pain or shortness of breath. She denies any dizziness. Related Data Allergies Allergy/AdvReac Type Severity Reaction Status Date / Time No Known Drug Allergies Allergy Verified 07/31/24 23:58 Opioid HPI Opioid Management Most Recent Opioid Data: No Data to Display Review of Systems ROS Status of ROS 10 or more systems reviewed and unremark able except as noted in history and below Exam Narrative Exam Narrative: Vital signs and Nursing Notes reviewed: Patient is afebrile febrile with a normal pulse, blood pressure is mildly elevated 134/99, she is not hypoxic with pulse ox of 97% on room air General: Alert, nontoxic but uncomfortable appearing female with dry heaves, GCS 15, no respiratory distress HEENT: Normocephalic atraumatic, mucous membranes are moist and pink, eyes are clear, normal conjunctiva, vision is grossly intact, mild photophobia noted Neck: Supple, no meningeal signs Chest: Lungs are clear to auscultation with good air entry, there is no wheezing rhonchi or rales appreciated no accessory muscle use, patient is speaking in complete sentences-no chest wall tenderness to palpation CVS: Regular rate and rhythm S1-S2, no murmurs rubs or gallops, pulses are brisk and equal bilaterally ABD: Soft, nondistended, nontender, no rebound guarding or rigidity, bowel sounds are normal, no pulsatile masses appreciated Extremities: Moving all extremities, no lower extremity tenderness or swelling noted, negative Homans' sign, pulses are brisk and equal bilaterally Skin: Normal in appearance without rash,pallor, petechiae or purpura Neuro: No focal deficits, speech is clear, there is no facial droop, upper and lower extremity strength and sensation is intact, registered safety engineer strength is intact, negative pronator drift Constitutional Vital Signs, click to edit/add: Last Vital Signs Temp 98 F 07/31/24 23:58 Pulse 76 07/31/24 23:58 Resp 18 07/31/24 23:58 BP 134/99 H 07/31/24 23:58 Pulse Ox 97 07/31/24 23:58 O2 Del Method Room Air 07/31/24 23:58 Course Vital Signs Vital signs: Vital Signs Temperature 98 F 07/31/24 23:58 Pulse Rate 76 07/31/24 23:58 Respiratory Rate 18 07/31/24 23:58 Blood Pressure 134/99 H 07/31/24 23:58 Pulse Oximetry 97 07/31/24 23:58 Oxygen Delivery Method Room Air 07/31/24 23:58 Temperature 98 F 07/31/24 23:58 Pulse Rate 76 07/31/24 23:58 Respiratory Rate 18 07/31/24 23:58 Blood Pressure 134/99 H 07/31/24 23:58 Pulse Oximetry 97 07/31/24 23:58 Oxygen Delivery Method Room Air 07/31/24 23:58 Medical Decision Making MDM Narrative Medical decision making narrative: This 39-year-old female with a history of migraine headaches presents for evaluation of a migraine headache that has been present for the past 3 days. It is a typical migraine for her. She has not had any fever, neck pain or stiffness. She has a normal neuroexam. She had nausea, photophobia with dry heaves and a throbbing headache. She was medicated with IV fluids, Reglan, Benadryl Solu-Medrol and Toradol. She was able to fall asleep and on reevaluation her headache has completely resolved. She will be discharged home with a prescription for Compazine and ibuprofen to use as needed for ongoing headaches. She was formally seeing neurology and I suggested if she starts to have an increase in her headache she should follow-up with neurology again. Discharge Plan Discharge Chief Complaint: Headache Clinical Impression: Migraine Patient Disposition: Home, Self-Care Time of Disposition Decision: 01:48 Condition: Good Print Language: Citizen Of [place] Instructions: Migraine Headache (ED) Referrals: Afia Figueroa NP [Primary Care Provider] - 1 week
--- OUTSIDE RECORDS SUMMARY | 2024-08-01 00:28 | XMS_ITS | CCD ---
Author Organization [facility] Inform ion Partnership [facility] Care Team Providers Care Lay Out Worker Name Role Phone Unavailable Primary Care Provider Unavailabl e Aichholz CHARLIE, Afia Agnieszka Primary Care Provider Aichholz CHARLIE, Afia Jo Primary Care Provider [phone] AICHHOLZ, MACHINE BASTER AFIA Primary Care Unavailable KHOI PANDEY Consulting Unavailable NAKIT MONTEJO Admitting Unavailable ANKIT MONTEJO Attending Unavailable MARIA DE JESUS, DR SANTOS Lizarraga Admitting Unavailabl e AICHHOLZ, MACHINE BASTER AFIA Primary Care Unavailable MARIA DE JESUS, DR SANTOS Lizarraga Attending Unavailabl e MARIA DE JESUS, DR SANTOS Lizraraga Consulting Unavailabl e OBIE BOWER Consulting Unavailable AICHHOLZ, MACHINE BASTER AFIA Admitting Unavailable AICHHOLZ, MACHINE BASTER AFIA Primary Care Unavailable AICHHOLZ, MACHINE BASTER AFIA Attending Unavailable AICHHOLZ, MACHINE BASTER AFIA Primary Care Unavailable TIMMIS, DR MENDEZ Admitting Unavailable TIMMIS, DR MENDEZ Attending Unavailable TIMMIS, DR MENDEZ Consulting Unavailable AICHHOLZ, MACHINE BASTER AFIA Primary Care Unavailable TIMMIS, DR MENDEZ Admitting Unavailable TIMMIS, DR MENDEZ Attending Unavailable TIMMIS, DR MENDEZ Consulting Unavailable AGUBOSISHARMILA FrancisUEL Consulting Unavailable JADE TRISTAN Consulting Unavailable MISC, DR VELARDE Admitting Unavailable AICHHOLZ, MACHINE BASTER AFIA Primary Care Unavailable MISC, DR VELARDE Attending Unavailable MISC, DR VELARDE Consulting Unavailable AICHHOLZ, MACHINE BASTER AFIA Consulting Unavailable AICHHOLZ, MACHINE BASTER AFIA Primary Care Unavailable AICHHOLZ, MACHINE BASTER AFIA Admitting Unavailable AICHHOLZ, MACHINE BASTER AFIA Attending Unavailable Mahendra Aguilar Consulting Unavailable Aichholz CHARLIE, Afia Agnieszka Primary Care Provider [phone] UNGPRASERT, PATOMPONG Attending Unavailabl e SELF Referring Unavailable AFIA FIGUEROA Primary Care Unavailable AICHAFIA MCDONNELL Primary Care Unavailable UNGPRASERT, PATOMPONG Referring Unavailabl e UNGPRASERT, PATOMPONG Attending Unavailabl e AFIA FIGUEROA Primary Care Unavailable Aichholz MATERIAL CREW SUPERVISOR, Afia Unavailable Ty Mai MD Primary Care Provider AICHHOLZ, AFIA Attending Unavailable TIMMIS, DALILA H Attending Unavailable NEGRO, FUNMILAYO A Attending Unavailable TIMMIS, DALILA H Referring Unavailable TIMMIS, DALILA H Attending Unavailable AICHHOLZ, AFIA Attending Unavailable Aichholz Afia GUERRA Primary Care Provider [phone] AICHHOLZ, AFIA Attending Unavailable TIMMIS, DALILA H Attending Unavailable NEGRO, FUNMILAYO A Attending Unavailable TIMMIS, DALILA H Referring Unavailable TIMMIS, DALILA H Attending Unavailable AICHHOLZ, AFIA Attending Unavailable AICHHOLZ, AFIA Attending Unavailable AICHHOLZ, AFIA Attending Unavailable AICHHOLZ, AFIA Attending Unavailable Allergies Allergy Classification Reported Allergen(s) Allergy Type Date of Onset Reaction(s) Facility (1 source) Amoxicillin Drug Allergy [facility] Repository Medications Current Medications Medication Drug Class(es) Dates Sig (Normalized) Sig (Original) amitriptyline hydrochloride 25 mg oral tablet (5 sources) Tricyclic Antidepressant Start: 11-14-2023 End: 01-26-2024 take 1 tablet by mouth at bedtime amitriptyline (Elavil) 25 MG tablet Indications: Other headache syndrome Take 1 tablet (25 mg) by mouth at bedtime 30 tablet 5 12/27/2023 01/26/2024 Active aspirin 81 mg delayed release oral tablet (9 sources) Platelet Aggregation Inhibitor, Nonsteroidal Anti-inflammatory Drug aspirin, enteric coated (ASPIRIN, ENTERIC COATED) 81 mg EC tablet q 24 HR. Active Comment on above: q 24 HR. atenolol 25 mg oral tablet (14 sources) beta-Adrenergic Machelle Start: 11-24-2021 End: 01-26-2024 atenolol (TENORMIN) 25 mg tablet 11/24/2021 Active cholecalciferol, vitamin D3, (VITAMIN D3 ORAL) (9 sources) cholecalciferol, vitamin D3, (VITAMIN D3 ORAL) Take by mouth. Active cholecalciferol, vitamin D3, (VITAMIN D3 ORAL) Take by mouth. 0 Active Comment on above: Take by mouth. FLUoxetine 40 mg oral capsule (14 sources) Serotonin Reuptake Inhibitor Start: 12-27-2023 End: 01-26-2024 take 1 capsule by mouth in the morning FLUoxetine (PROzac) 40 MG capsule Indications: Anxiety and depression (CMS/HCC) Take 1 capsule (40 mg) by mouth in the morning. 30 capsule 5 12/27/2023 01/26/2024 Active Comment on above: Take 40 mg by mouth. gabapentin 100 mg oral capsule (12 sources) Anti-epileptic Agent Start: 06-27-2023 End: 01-26-2024 take 2 capsules by mouth once daily at bedtime gabapentin (NEURONTIN) 100 mg capsule Take 200 mg by mouth daily at bedtime. 06/27/2023 Active Start: 11-27-2021 gabapentin (NE URONTIN) 100 mg capsule Comment on above: Take 200 mg by mouth daily at bedtime. methotrexate 2.5 mg oral tablet (13 sources) Folate Analog Metabolic Inhibitor Start: 2 End: 4 take 6 tablets by mouth every week methotrexate 2.5 mg tablet Indications: Seropositive rheumatoid arthritis (HCC) TAKE 6 TABLETS BY MOUTH ONCE A WEEK 72 tablet 3 06/01/2024 Active methotrexate 2.5 MG tablet Take 15 mg by mouth 1 (one) time per week. 0 Active Comment on above: Take 6 tablets by [facility] one time a week. nitroglycerin 0.4 mg [...] tablet (13 sources) Start: 12-23-19 End: 01-22-20 24 take 1 tablet by mouth once daily [...] tablet by [facility] once daily. Take 5 mg by mouth. tiZANidine 4 mg oral tablet (11 sources) Central alpha-2 Adrenergic Agonist Start: 06-26-2023 End: 01-26-2024 tiZANidine (ZANAFLEX) 4 mg tablet 06/26/2023 Active Completed/Discontinued Medications Medication Drug Class(es) Dates Sig (Normalized) Sig (Original) folic acid 1 mg oral tablet (9 sources) Start: 2 End: 4 take 1 tablet by mouth once daily folic acid 1 mg tablet Indications: Seropositive rheumatoid arthritis (HCC) Take 1 tablet by mouth once daily. 90 tablet 3 07/07/2023 07/06/2024 Comment on above: Take 1 tablet by [facility] once daily. Take 1 mg by mouth o nce daily. hydroxychloroquine sulfate 200 mg oral tablet (13 sources) Antimalarial, Antirheumatic Agent Start: 2 End: 4 take 1 tablet by mouth twice daily hydrOXYchloroQUINE (PLAQUENIL) 200 mg tablet Indications: Seropositive rheumatoid arthritis (HCC) Take 1 tablet by mouth twice daily. 180 tablet 3 07/07/2023 07/06/2024 Comment on above: Take 1 tablet by [facility] twice daily. Take 200 mg by mouth twice daily. 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-2023 Chronic Other aftercare (1 source) Encounter for adjustment or removal of myringotomy device (stent) (tube); Translations: [ENC ADJUST/REMV MYRINGOT DEVC STENT] Onset: 07-29-2022 Chronic Other aftercare (3 sources) Taking high risk medication; Translations: [Other halfway (current) drug therapy] Episodic Other connective tissue [...] 12-27-2023 Episodic Rheumatoid arthritis and related disease (19 sources) Seropositive rheumatoid arthritis; Translations: [Rheumatoid arthritis [...] 12-27-2023 12-27-2023 Episodic Other aftercare (1 source) termite exterminator (current) use of aspirin; Translations: [FPC CURRENT USE OF ASPIRIN] Onset: 10-17-2022 Episodic Other aftercare (1 source) Other halfway (current) drug therapy; Translations: [OTH TITLE CURATIVE SPECIALIST CURRENT DRUG THERAPY] Onset: 10-17-2022 Episodic Other [...] HISTORY OF NICOTINE DEPEND] Onset: 10-17-2022 Episodic Results Test Name Value Interpretation Reference Range Facility [facility] 12-23-2023 CNOV Office Visit (RHEUMN ) CARLOTTA DIGGS ([id number]) 1985 F Date Time Provider Department 12/23/23 8:30 AM CHELA JOSEPH RHEUMBasim During your visit today, we recorded the following information about you: Temperature Pulse Blood pressure Weight 97.5 degrees 66/minute 115/72 108.8 kg Height 1.626 m Chela Joseph MD 12/23/2023 9:02 AM Signed MD Carlotta Moyer December 22, 2023 Referring Provider:Self PCP: Afia Figueroa, MACHINE BASTER, MACHINE BASTER Chief Complaint: Patient presents with: Joint Pain [...] COVID-19 original vaccine, age 12+ yr, monovalent ([employer] - PURPLE TOP) 03/05/2021 03/24/2021 Haemophilus influenzae [...] (Src) 97. (more content not included)... Normal [facility] ALT SerPl-cCncon 07-07-2023 ALT [Catalytic activity/Vol] 25 U/L Normal 7-38 [facility] Comment on above: Order Comment: Speci men Type: BLOOD SPECIMEN Ordering Facility: [facility] Address: [address] [place] [id number] Performed By: #### 1 742-6, 3094-0, CRET1, 1920-8, 1987- #### [facility] CLIA [id number] [address] [facility] [address] [address] [place] ALT/SGPTon 07-07-2023 ALT [Catalytic activity/Vol] 25 U/L 7 - 38 U/L [facility] AST SerPl-cCncon 07-07-2023 AST [Catalytic activity/Vol] 23 U/L Normal 13-35 [facility] Comment on above: Order Comment: Speci men Type: BLOOD SPECIMEN Ordering Facility: [facility] Address: [address] [place] [phone] Performed By: #### 1 742-6, 3094-0, CRET1, 1920-06, 1988-03 #### [facility] CLIA [id number] [address] [place] [address] [place] AST/SGOT BLDon 07-07-2023 AST [Catalytic activity/Vol] 23 U/L 13 - 35 U/L [facility] BUN BLOODon 07-07-2023 Urea nitrogen [Mass/Vol] 16 mg/dL 7 - 21 mg/dL [facility] BUN SerPl-mCncon 07-07-2023 Urea nitrogen [Mass/Vol] 16 mg/dL Normal 7-21 [facility] Comment on above: Order Comment: Speci men Type: BLOOD SPECIMEN Ordering Facility: [facility] Address: [address] Performed By: #### 1 742-6, 3094-0, CRET1, 1920-06, 1988-03 #### [facility] CLIA [id number] [address] [place] [address] [place] C-REACTIVE PROTEIN (CRP)on 0 07-07-2023 CRP [Mass/Vol] 0.4 mg/dL <0.9 mg/dL [facility] CBC W Auto Differential pane l (Bld)on 07-07-2023 Basophils (Bld) [#/Vol] 0.04 10*3/uL Normal <0.11 [facility] Comment on above: Order Comment: Speci men Type: BLOOD SPECIMEN Ordering Facility: [facility] Address: [address] [place] [address] Performed By: #### 5 7021-8, 4537-7 #### [facility] CLIA [id number] [address] [place] [address] [place] Basophils/100 WBC (Bld) 0.5 % Normal [facility] Comment on above: Order Comment: Speci men Type: BLOOD SPECIMEN Ordering Facility: [facility] Address: [address] [place] [address] Performed By: #### 5 7021-8, 7-7 #### [facility] CLIA [id number] [address] [place] [address] [place] Differential cell count method Nom (Bld) Auto Normal [facility] Comment on above: Order Comment: Speci men Type: BLOOD SPECIMEN Ordering Facility: [facility] Address: [address] Performed By: #### 5 7021-8, 4536-7 #### [facility] CLIA [id number] [address] [place] [address] [place] Eosinophils (Bld) [#/Vol] 0.13 10*3/uL Normal <0.46 [facility] Comment on above: Order Comment: Speci men Type: BLOOD SPECIMEN Ordering Facility: [facility] Address: [address] Performed By: #### 5 7021-8, 4536-7 #### [facility] CLIA [id number] [address] [place] [address] [place] Eosinophils/100 WBC (Bld) 1.5 % Normal [facility] Comment on above: Order Comment: Speci men Type: BLOOD SPECIMEN Ordering Facility: [facility] Address: [address] Performed By: #### 5 7021-8, 7 #### [facility] CLIA [id number] [facility] [place] [address] [place] Erythrocyte distribution width (RBC) [Ratio] 12.6 % Normal 11.5-15.0 [facility] Comment on above: Order Comment: Speci men Type: BLOOD SPECIMEN Ordering Facility: [facility] Address: [address] Performed By: #### 5 7021-8, 7-7 #### [facility] CLIA [id number] [address] [place] [address] [place] Hematocrit (Bld) [Volume fraction] 41.4 % Normal 36.0-46.0 [facility] Comment on above: Order Comment: Speci men Type: BLOOD SPECIMEN Ordering Facility: [facility] Address: [address] [place], [place] [address] Performed By: #### 5 7021-8, 4536-7 #### [facility] CLIA [id number] [address] [place] [address] [place] Hemoglobin (Bld) [Mass/Vol] 14.2 g/dL Normal 11.5-15.5 [facility] Comment on above: Order Comment: Speci men Type: BLOOD SPECIMEN Ordering Facility: [facility] Address: [address] [place], [place] [address] Performed By: #### 5 7021-8, 7 #### [facility] CLIA [id number] [address] [place] [address] [place] Immature granulocytes (Bld) [#/Vol] 0.04 10*3/uL Normal <0.10 [facility] Comment on above: Order Comment: Speci men Type: BLOOD SPECIMEN Ordering Facility: [facility] Address: [address] [place], [place] [address] Performed By: #### 5 7021-8, 7 #### [facility] CLIA [id number] [address] [place] [address] [place] Immature granulocytes/100 WBC (Bld) 0.5 % Normal [facility] Comment on above: Order Comment: Speci men Type: BLOOD SPECIMEN Ordering Facility: [facility] Address: [address] [place], [place] [address] Performed By: #### 5 7021-8, 4536-7 #### [facility] CLIA [id number] [address] [place] [address] [place] Lymphocytes (Bld) [#/Vol] 2.82 10*3/uL Normal 1.00-4.00 [facility] Comment on above: Order Comment: Speci men Type: BLOOD SPECIMEN Ordering Facility: [facility] Address: [address] [place] [address] Performed By: #### 5 7021-8, 4536-7 #### [facility] CLIA [id number] [address] [place] [address] [place] Lymphocytes/100 WBC (Bld) 32.4 % Normal [facility] Comment on above: Order Comment: Speci men Type: BLOOD SPECIMEN Ordering Facility: [facility] Address: [address] [place], [place] [address] Performed By: #### 5 7021-8, 4536-7 #### [facility] CLIA [id number] [address] [place] [address] [place] MCH (RBC) [Entitic mass] 31.3 pg Normal 26.0-34.0 [facility] Comment on above: Order Comment: Speci men Type: BLOOD SPECIMEN Ordering Facility: [facility] Address: [address] [place], [place] [address] Performed By: #### 5 7021-8, 4536-7 #### [facility] CLIA [id number] [address] [place] [address] [place] MCHC (RBC) [Mass/Vol] 34.3 g/dL Normal 30.5-36.0 [facility] Comment on above: Order Comment: Speci men Type: BLOOD SPECIMEN Ordering Facility: [facility] Address: [address] [place] [address] Performed By: #### 5 7021-8, 4536-7 #### [facility] CLIA [id number] [address] [place] [address] [place] MCV (RBC) [Entitic vol] 91.4 fL Normal 80.0-100.0 [facility] Comment on above: Order Comment: Speci men Type: BLOOD SPECIMEN Ordering Facility: [facility] Address: [address] Performed By: #### 5 7021-8, 453-7 #### [facility] CLIA [id number] [address] [place] [address] [place] Monocytes (Bld) [#/Vol] 0.86 10*3/uL Normal <0.87 [facility] Comment on above: Order Comment: Speci men Type: BLOOD SPECIMEN Ordering Facility: [facility] Address: [address] Performed By: #### 5 7021-8, 4537-7 #### [facility] CLIA [id number] [address] [place] [address] [place] Monocytes/100 WBC (Bld) 9.9 % Normal [facility] Comment on above: Order Comment: Speci men Type: BLOOD SPECIMEN Ordering Facility: [facility] Address: [address] Performed By: #### 5 7021-8, 4536-7 #### [facility] CLIA [id number] [address] [place] [address] [place] Neutrophils (Bld) [#/Vol] 4.82 10*3/uL Normal 1.45-7.50 [facility] Comment on above: Order Comment: Speci men Type: BLOOD SPECIMEN Ordering Facility: [facility] Address: [address] Performed By: #### 5 7021-8, 4537-7 #### [facility] CLIA [id number] [address] [place] [address] [place] Neutrophils/100 WBC (Bld) 55.2 % Normal [facility] Comment on above: Order Comment: Speci men Type: BLOOD SPECIMEN Ordering Facility: [facility] Address: [address] Performed By: #### 5 7021-8, 4536-7 #### [facility] CLIA [id number] [address] [place] [address] [place] Nucleated RBC (Bld) [#/Vol] 10*3/uL Normal <0.01 [facility] Comment on above: Order Comment: Speci men Type: BLOOD SPECIMEN Ordering Facility: [facility] Address: [address] [place] [address] Performed By: #### 5 7021-8, 7 #### [facility] CLIA [id number] [address] [place] [address] [place] Nucleated RBC/100 WBC (Bld) [Ratio] 0.0 /100 WBC Normal [facility] Comment on above: Order Comment: Speci men Type: BLOOD SPECIMEN Ordering Facility: [facility] Address: [address] Performed By: #### 5 7021-8, 7 #### [facility] CLIA [id number] [address] [place] [address] [place] Platelet mean volume (Bld) [Entitic vol] 10.6 fL Normal 9.0-12.7 [facility] Comment on above: Order Comment: Speci men Type: BLOOD SPECIMEN Ordering Facility: [facility] Address: [address] [place], [place] Performed By: #### 5 7021-8, 7 #### [facility] CLIA [id number] [address] [place] [address] [place] Platelets (Bld) [#/Vol] 266 10*3/uL Normal 150-400 [facility] Comment on above: Order Comment: Speci men Type: BLOOD SPECIMEN Ordering Facility: [facility] Address: [address] [place], [place] Performed By: #### 5 7021-8, 7 #### [facility] CLIA [id number] [address] [place] [address] [place] RBC (Bld) [#/Vol] 4.53 10*6/uL Normal 3.90-5.20 [facility] Comment on above: Order Comment: Speci men Type: BLOOD SPECIMEN Ordering Facility: [facility] Address: [address] [place] [address] Performed By: #### 5 7021-8, 4537-7 #### [facility] CLIA [id number] [address] [place] [address] [place] WBC (Bld) [#/Vol] 8.71 10*3/uL Normal 3.70-11.00 [facility] Comment on above: Order Comment: Speci men Type: BLOOD SPECIMEN Ordering Facility: [facility] Address: [address] [place] [address] Performed By: #### 5 7021-8, 4537-7 #### [facility] CLIA [id number] [address] [place] [address] [place] Basophils (Bld) [#/Vol] 0.04 10*3/uL <0.11 k/uL [facility] Basophils/100 WBC (Bld) 0.5 % [facility] Differential cell count method Nom (Bld) Auto [facility] Eosinophils (Bld) [#/Vol] 0.13 10*3/uL <0.46 k/uL [facility] Eosinophils/100 WBC (Bld) 1.5 % [facility] Erythrocyte distribution width (RBC) [Ratio] 12.6 % 11.5 - 15.0 % [facility] Hematocrit (Bld) [Volume fraction] 41.4 % 36.0 - 46.0 % [facility] Hemoglobin (Bld) [Mass/Vol] 14.2 g/dL 11.5 - 15.5 g/dL [facility] Immature granulocytes (Bld) [#/Vol] 0.04 10*3/uL <0.10 k/uL [facility] Immature granulocytes/100 WBC (Bld) 0.5 % [facility] Lymphocytes (Bld) [#/Vol] 2.82 10*3/uL 1.00 - 4.00 k/uL [facility] Lymphocytes/100 WBC (Bld) 32.4 % [facility] MCH (RBC) [Entitic mass] 31.3 pg 26.0 - 34.0 pg [facility] MCHC (RBC) [Mass/Vol] 34.3 g/dL 30.5 - 36.0 g/dL [facility] MCV (RBC) [Entitic vol] 91.4 fL 80.0 - 100.0 fL [facility] Monocytes (Bld) [#/Vol] 0.86 10*3/uL <0.87 k/uL [facility] Monocytes/100 WBC (Bld) 9.9 % [facility] Neutrophils (Bld) [#/Vol] 4.82 10*3/uL 1.45 - 7.50 k/uL [facility] Neutrophils/100 WBC (Bld) 55.2 % [facility] Nucleated RBC (Bld) [#/Vol] <0.01 k/uL [facility] Nucleated RBC/100 WBC (Bld) [Ratio] 0.0 /100 WBC [facility] Platelet mean volume (Bld) [Entitic vol] 10.6 fL 9.0 - 12.7 fL [facility] Platelets (Bld) [#/Vol] 266 10*3/uL 150 - 400 k/uL [facility] RBC (Bld) [#/Vol] 4.53 10*6/uL 3.90 - 5.2 0 m/uL [facility] WBC (Bld) [#/Vol] 8.71 10*3/uL 3.70 - 11. 00 k/uL [facility] CNOVon 07-07-2023 CNOV Office Visit ([facility] ) CARLOTTA DIGGS ([id number]) 1985 F Date Time Provider Department 07/07/23 3:30 PM CHELA JOSEPH During your visit today, we recorded the following information about you: Temperature Pulse Respiration Blood pressure 97.2 degrees 76/minute 16/minute 112/60 Weight 104.8 kg Chela Joseph MD 07/07/2023 4:23 PM Signed MD Carlotta Moyer July 07, 2023 Referring Provider: PCP: Afia Figueroa, CHARLIE, MACHINE BASTER Chief Complaint: Patient presents with: Follow Up [...] COVID-19 original vaccine, age 12+ yr, monovalent ([employer]-CYPHER - PURPLE TOP) 03/05/2021 03/24/2021 Haemophilus influenzae [...] Neuro: Grossly (more content not included)... Normal [facility] CREATININE BLDon 07-07-2023 Creatinine [Mass/Vol] 0.76 mg/dL 0.58 - 0.96 mg/dL [facility] Estimated Glomerular Filtration Rate 102 mL/min/1.73m >=60 mL/min/1.73m [facility] Creatinine [Mass/Vol] 0.76 mg/dL Normal 0.58-0.96 [facility] Comment on above: Order Comment: Lavelle negrete Type: BLOOD SPECIMEN Ordering Facility: [facility] Address: [address] [place] [address] Performed By: #### 1 742-6, 3094-0, CRET1, 1919-8, 1988-03 #### [facility] CLIA [id number] [address] [place] [address] [place] [facility] Creatinine and Glomerular filtration rate.predicted panel (S/P/Bld) 102 mL/min/1.73m??? Normal >=60 [facility] Comment on above: Order Comment: [facility] Type: BLOOD SPECIMEN Ordering Facility: [facility] Address: [address] [place] [address] Result Comment: Larisa mated Glomerular Filtration Rate [...] 1 742-6, 3094-0, CRET1, 1920-06, 1988-03 #### [facility] CLIA [id number] [address] [place] [address] [place] CRP SerPl-mCncon 07-07-2023 CRP [Mass/Vol] 0.4 mg/dL Normal <0.9 [facility] Comment on above: Order Comment: Speci men Type: BLOOD SPECIMEN Ordering Facility: [facility] Address: [address] [address] Performed By: #### 1 742-6, 3094-0, CRET1, 1920-06, 1988-03 #### [facility] CLIA [id number] [address] [place] [address] [place] ESR Westergren method (Bld) [Velocity]on 07-07-2023 ESR (Bld) [Velocity] 9 mm/h 0 - 20 mm/hr [facility] ESR (Bld) [Velocity] 9 mm/h Normal 0-20 [facility] Comment on above: Order Comment: Speci men Type: BLOOD SPECIMENOrdering Facility: [facility] Address: [address] [place] [address] Performed By: #### 5 7021-8, 4537-7 ####[facility] [id number] [address] [place] CARINA SUBTYPE (4)on 11-18-2022 ANTI ds DNA 1.7 IU/ML Normal (0.0 - 15.0) [facility] Comment on above: Performed By: #### C BC/2A, ENA4, C3-C4, ESRCRP #### [facility] [address] [facility], [address] ANTI HAYWARD 0.9 U/mL Normal (0.0 - 10.0) [facility] Comment on above: Result Comment: PERF ORMED ON PHADIA EFFECTIVE 01-11-2022 Performed By: #### C BC/2A, ENA4, C3-C4, ESRCRP #### [facility] [address] [facility], [address] ANTI SSA/RO 0.5 U/mL Normal (0.0 - 10.0) [facility] Comment on above: Performed By: #### C BC/2A, ENA4, C3-C4, ESRCRP #### [facility] [address] [facility], [address] ANTI SSB/LA <0.4 Normal (0.0 - 10.0) [facility] Comment on above: Performed By: #### C BC/2A, ENA4, C3-C4, ESRCRP #### [facility] [address] [facility], [address] C3 AND C4on 11-18-2022 C 3 131 MG/DL Normal (88 - 165) [facility] Comment on above: Performed By: #### C BC/2A, ENA4, C3-C4, ESRCRP #### [facility] [address] [facility], [address] C 4 28 MG/DL Normal (14 - 44) [facility] Comment on above: Performed By: #### C BC/2A, ENA4, C3-C4, ESRCRP #### [facility] [address] [facility], [address] CBC, ALB, ALT, AST, ALK AND CREAon 11-18-2022 Albumin [Mass/Vol] 4.1 g/dL Normal (3.5 - 5.0) [facility] Comment on above: Order Comment: FACIL ITY: [facility] O [id number] Performed By: #### C BC/2A, ENA4, C3-C4, ESRCRP #### [facility] [address] [facility], [address] ALK PHOS 58 U/L Normal (38 - 126) [facility] Comment on above: Order Comment: FACIL ITY: [facility] [id number] Performed By: #### C BC/2A, ENA4, C3-C4, ESRCRP #### [facility] [address] [facility], [address] ALT [Catalytic activity/Vol] 24 U/L Normal (1 - 35) [facility] Comment on above: Order Comment: FACIL ITY: [facility] [id number] Performed By: #### C BC/2A, ENA4, C3-C4, ESRCRP #### [facility] [address] [facility], [address] AST [Catalytic activity/Vol] 29 U/L Normal (15 - 46) [facility] Comment on above: Order Comment: FACIL ITY: [facility] [id number] Performed By: #### C BC/2A, ENA4, C3-C4, ESRCRP #### [facility] [address] [facility], [address] Creatinine [Mass/Vol] 0.78 mg/dL Normal (0.52 - 1.04) [facility] Comment on above: Order Comment: FACIL ITY: [facility] [id number] Performed By: #### C BC/2A, ENA4, C3-C4, ESRCRP #### [facility] [address] [facility], [address] GFR- AMER 99.5 ML/M1.7 Normal (60.0 - 140.1) [facility] Comment on above: Order Comment: FACIL ITY: [facility] [id number] Performed By: #### C BC/2A, ENA4, C3-C4, ESRCRP #### [facility] [address] [facility], [address] GFR-NON AFRIC-AMER 82.2 ML/M1.7 Normal (60.0 - 115.8) [facility] Comment on above: Order Comment: FACIL ITY: [facility] [id number] Performed By: #### C BC/2A, ENA4, C3-C4, ESRCRP #### [facility] [address] [facility], [address] Hematocrit (Bld) [Volume fraction] 41.9 % Normal (37.0 - 47.0) [facility] Comment on above: Order Comment: FACIL ITY: [facility] [id number] Performed By: #### C BC/2A, ENA4, C3-C4, ESRCRP #### [facility] [address] [facility], [address] Hemoglobin (Bld) [Mass/Vol] 14.3 g/dL Normal (12.0 - 16.0) [facility] Comment on above: Order Comment: FACIL ITY: [facility] [id number] Performed By: #### C BC/2A, ENA4, C3-C4, ESRCRP #### [facility] [address] [facility], [address] MCH (RBC) [Entitic mass] 31.5 pg Normal (27.0 - 33.0) [facility] Comment on above: Order Comment: FACIL ITY: [facility] [id number] Performed By: #### C BC/2A, ENA4, C3-C4, ESRCRP #### [facility] [address] [facility], [address] MCHC (RBC) [Mass/Vol] 34.1 g/dL Normal (30.0 - 37.0) [facility] Comment on above: Order Comment: FACIL ITY: [facility] [id number] Performed By: #### C BC/2A, ENA4, C3-C4, ESRCRP #### [facility] [address] [facility], [address] MCV (RBC) [Entitic vol] 92.3 fL Normal (81.0 - 99.0) [facility] Comment on above: Order Comment: FACIL ITY: [facility] [id number] Performed By: #### C BC/2A, ENA4, C3-C4, ESRCRP #### [facility] [address] [facility], [address] PLT 280 x10^3ul Normal (130 - 400) [facility] Comment on above: Order Comment: FACIL ITY: [facility] [id number] Performed By: #### C BC/2A, ENA4, C3-C4, ESRCRP #### [facility] [address] [facility], [address] RBC 4.54 x10^6ul Normal (4.20 - 5.40) [facility] Comment on above: Order Comment: FACIL ITY: [facility] [id number] Performed By: #### C BC/2A, ENA4, C3-C4, ESRCRP #### [facility] [address] [facility], [address] WBC 10.77 x10^3ul High (3.80 - 10.60) [facility] Comment on above: Order Comment: FACIL ITY: [facility] [id number] Performed By: #### C BC/2A, ENA4, C3-C4, ESRCRP #### [facility] [address] [facility], [address] SED RATE - CRPon 11-18-2022 CRP EXTENDED RANGE 1.34 MG/L Normal (0.00 - 3.20) [facility] Comment on above: Performed By: #### C BC/2A, ENA4, C3-C4, ESRCRP #### [facility] [address] [facility], [address] SED RATE WEST. 10 MM/HR Normal (0 - 25) [facility] Comment on above: Performed By: #### C BC/2A, ENA4, C3-C4, ESRCRP #### [facility] [address] [facility], [address] CBC AUTO DIFFon 12-01-2022 BASO # 0.0 103/ul Normal 0.0-0.1 [facility] Comment on above: Performed By: #### C BC ####[facility] [address] [address]Dr. Db Gary Basophils/100 WBC (Bld) 0.5 % Normal 0.2-2.0 [facility] Comment on above: Performed By: #### C BC ####[facility] [address] [place], [place] [address]Dr. Db Gary EO # 0.1 103/ul Normal 0.0-0.7 [facility] Comment on above: Performed By: #### C BC ####[facility] X[address] [place], [place] [address]Dr. Db Gary Eosinophils/100 WBC (Bld) 1.4 % Normal 0.9-7.0 [facility] Comment on above: Performed By: #### C BC ####[facility] I[address] [place], [place] [address]Dr. Db Gary Erythrocyte distribution width (RBC) [Ratio] 12.7 % Normal 11.0-15.0 [facility] Comment on above: Performed By: #### C BC ####[facility] [address] [place], [place] [address]Dr. Db Gary Hematocrit (Bld) [Volume fraction] 41.2 % Normal 36.0-48.0 [facility] Comment on above: Performed By: #### C BC ####[facility] [address] [place], [place] [address]Dr. Db Gary Hemoglobin (Bld) [Mass/Vol] 13.9 g/dL Normal 12.0-16.0 [facility] Comment on above: Performed By: #### C BC ####[facility] [address] [place], [place] [address]Dr. Db Gary IG # 0.02 10e3/ul Normal 0.00-0.03 [facility] Comment on above: Performed By: #### C BC ####[facility] [address] [id number]. Db Gary IG % 0.3 % Normal 0.0-0.5 [facility] Comment on above: Performed By: #### C BC ####[facility] [address] [address]Dr. Db Gary LYMPH # 2.2 103/ul Normal 1.2-3.8 [facility] Comment on above: Performed By: #### C BC ####[facility] [address] [address]Dr. Db Gary Lymphocytes/100 WBC (Bld) 34.5 % Normal 20.5-60.0 [facility] Comment on above: Performed By: #### C BC ####[facility] [address] [address]Dr. Db Gary MANUAL DIFF REQ NO Normal [facility] Comment on above: Performed By: #### C BC ####[facility] [address] [address]Dr. Db Abdirahman MCH (RBC) [Entitic mass] 30.8 pg Normal 26.7-34.0 [facility] Comment on above: Performed By: #### C BC ####[facility] [address] [address]Dr. Db Abdirahman MCHC (RBC) [Mass/Vol] 33.7 g/dL Normal 29.9-35.2 [facility] Comment on above: Performed By: #### C BC ####[facility] [address] [address]Dr. Db Gary MCV (RBC) [Entitic vol] 91.2 fL Normal 81.0-99.0 [facility] Comment on above: Performed By: #### C BC ####[facility] [address] [address]Dr. Db Gary MONO # 0.6 103/ul Normal 0.3-0.8 [facility] Comment on above: Performed By: #### C BC ####[facility] [address]se[address] [place], [place] [address]Dr. Db Gary Monocytes/100 WBC (Bld) 9.4 % Normal 1.7-12.0 [facility] Comment on above: Performed By: #### C BC ####[facility] [address] [id number]. Db Gary NEUT # 3.4 103/ul Normal 1.4-6.5 [facility] Comment on above: Performed By: #### C BC ####[facility] [address] [address]Dr. Db Gary Neutrophils/100 WBC (Bld) 53.9 % Normal 43.0-75.0 [facility] Comment on above: Performed By: #### C BC ####[facility] [address] [address]Dr. Db Gary Platelet mean volume (Bld) [Entitic vol] 9.4 fL Critically low 9.5-13.5 [facility] Comment on above: Performed By: #### C BC ####[facility] [address] [address]Dr. Db Gary PLT 231 103/ul Normal 150-450 [facility] Comment on above: Performed By: #### C BC ####[facility] [address] [place], [place] [address]Dr. Db Gary RBC 4.52 106/ul Normal 4.20-5.40 [facility] Comment on above: Performed By: #### C BC ####[facility] [address] [place], [place] [address]Dr. Db Gary WBC 6.4 103/ul Normal 4.0-11.0 [facility] Comment on above: Performed By: #### C BC ####[facility] [address] [id number]. Db Gary CRPon 10-14-2022 CRP [Mass/Vol] mg/L Normal <=1.0 [facility] Comment on above: Performed By: #### B MP, CRP ####[facility] E[address] [place], [place] [address]Dr. Db Gary CT HEAD WO CONon 10-14-2022 [...] OBIE BOWER Date: 2022-10-14 13:03 Normal [facility] PROF CHEM 8 (BAS METB)on Anion gap [Moles/Vol] 8.9 mmol/L Normal [facility] Comment on above: Performed By: #### B MP, CRP ####[facility] [address] [address]Dr. Db Gary Calcium [Mass/Vol] 8.5 mg/dL Normal 8.5-10.1 [facility] Comment on above: Performed By: #### B MP, CRP ####[facility] [address] [address]Dr. Db Gary Chloride [Moles/Vol] 104 mmol/L Normal 98-107 [facility] Comment on above: Performed By: #### B MP, CRP ####[facility] [address] [address]Dr. Db Gary CO2 [Moles/Vol] 29.8 mmol/L Normal 21.0-32.0 [facility] Comment on above: Performed By: #### B MP, CRP ####[facility] [address] [id number]. Db Gary Creatinine [Mass/Vol] 0.81 mg/dL Normal 0.55-1.02 [facility] Comment on above: Performed By: #### B MP, CRP ####[facility] [address] [id number]. Db Gary EGFR-AF SWEDISH >60 Normal >=[address] [facility] Comment on above: Performed By: #### B MP, CRP ####[facility] [address] [id number]. Db Gary EGFR-NON AF SWEDISH >60 Normal >=60 [facility] Comment on above: Performed By: #### B MP, CRP ####[facility] [address] [id number]. Db Gary Glucose [Mass/Vol] 82 mg/dL Normal 74-106 The [facility] Comment on above: Performed By: #### B MP, CRP ####[facility] [address] [id number]. Db Gary Potassium [Moles/Vol] 3.7 mmol/L Normal 3.5-5.1 [facility] Comment on above: Performed By: #### B MP, CRP ####[facility] [address] [id number]. Db Gary Sodium [Moles/Vol] 139 mmol/L Normal 136-145 [facility] Comment on above: Performed By: #### B MP, CRP ####[facility] [address] [id number]. Db Gary Urea nitrogen [Mass/Vol] 16.0 mg/dL Normal 7.0-18.0 [facility] Comment on above: Performed By: #### B MP, CRP ####[facility] [address] [id number]. Db Gary Urea nitrogen/Creatinin e [Mass ratio] 19.8 mg/mg Normal [facility] Comment on above: Performed By: #### B MP, CRP ####[facility] [address] [place], [place] [address]Dr. Db Gary SED RATE WESTERGRENon 2021 SED RATE 14 mm/hr Normal <=20 [facility] Comment on above: Performed By: #### S EDR ####[facility] [address] [place], [place] [address]Dr. Db Gary XR CSPINE 2_3 VIEWSon 2021 [...] MAHENDRA AGUILAR Date: 2022-09-07 17:04 Normal [facility] BUNon 06-28-2022 Urea nitrogen [Mass/Vol] 23.0 mg/dL Critically high 7.0-18.0 [facility] Comment on above: Performed By: #### A ST, CRP, ALT, CREA, BUN #### [facility] [address] [address] [address] Db Gary CBC AUTO DIFFon 06-28-2022 BASO # 0.0 103/ul Normal 0.0-0.1 [facility] Comment on above: Performed By: #### C BC #### [facility] [address] [address] [address] Db Gary Basophils/100 WBC (Bld) 0.5 % Normal 0.2-2.0 [facility] Comment on above: Performed By: #### C BC #### [facility] [address] [address] [address] Db Gary EO # 0.1 103/ul Normal 0.0-0.7 [facility] Comment on above: Performed By: #### C BC #### [facility] [address] [place] [address] Dr. Db Gary Eosinophils/100 WBC (Bld) 0.9 % Normal 0.9-7.0 [facility] Comment on above: Performed By: #### C BC #### [facility] [address] [place] [address] Dr. Db Gary Erythrocyte distribution width (RBC) [Ratio] 13.2 % Normal 11.0-15.0 [facility] Comment on above: Performed By: #### C BC #### [facility] [address] [place] [address] Dr. Db Gary Hematocrit (Bld) [Volume fraction] 40.2 % Normal 36.0-48.0 [facility] Comment on above: Performed By: #### C BC #### [facility] [address] [place] [address] Dr. Db Gary Hemoglobin (Bld) [Mass/Vol] 12.9 g/dL Normal 12.0-16.0 [facility] Comment on above: Performed By: #### C BC #### [facility] [address] [place] [address] Dr. Db Gary IG # 0.02 10e3/ul Normal 0.00-0.03 [facility] Comment on above: Performed By: #### C BC #### [facility] [address] [place] [address] Dr. Db Gary IG % 0.2 % Normal 0.0-0.5 [facility] Comment on above: Performed By: #### C BC #### [facility] [address] [place] [address] Dr. Db Gary LYMPH # 3.0 103/ul Normal 1.2-3.8 [facility] Comment on above: Performed By: #### C BC #### [facility] [address] [place] [address] Dr. Db Gary Lymphocytes/100 WBC (Bld) 36.0 % Normal 20.5-60.0 [facility] Comment on above: Performed By: #### C BC #### [facility] [address] [place] [address] Dr. Db Gary MANUAL DIFF REQ NO Normal [facility] Comment on above: Performed By: #### C BC #### [facility] [address] [place] [address] Dr. Db Gary MCH (RBC) [Entitic mass] 28.8 pg Normal 26.7-34.0 [facility] Comment on above: Performed By: #### C BC #### [facility] [address] [place] [address] Dr. Db Gary MCHC (RBC) [Mass/Vol] 32.1 g/dL Normal 29.9-35.2 [facility] Comment on above: Performed By: #### C BC #### [facility] [address] [place] [address] Dr. Db Gary MCV (RBC) [Entitic vol] 89.7 fL Normal 81.0-99.0 [facility] Comment on above: Performed By: #### C BC #### [facility] [address] [place] [address] Dr. Db Gary MONO # 0.6 103/ul Normal 0.3-0.8 [facility] Comment on above: Performed By: #### C BC #### [facility] [address] [place] [address] Dr. Db Gary Monocytes/100 WBC (Bld) 7.4 % Normal 1.7-12.0 [facility] Comment on above: Performed By: #### C BC #### [facility] [address] [place] [address] Dr. Db Gary NEUT # 4.5 103/ul Normal 1.4-6.5 [facility] Comment on above: Performed By: #### C BC #### [facility] [address] [place] [address] Dr. Db Gary Neutrophils/100 WBC (Bld) 55.0 % Normal 43.0-75.0 [facility] Comment on above: Performed By: #### C BC #### [facility] [address] [place] [address] Dr. Db Gary Platelet mean volume (Bld) [Entitic vol] 10.3 fL Normal 9.5-13.5 [facility] Comment on above: Performed By: #### C BC #### [facility] [address] [place] [address] Dr. Db Gary PLT 275 103/ul Normal 150-450 [facility] Comment on above: Performed By: #### C BC #### [facility] [address] [place] [address] Dr. Db Gary RBC 4.48 106/ul Normal 4.20-5.40 [facility] Comment on above: Performed By: #### C BC #### [facility] [address] [place] [address] Dr. Db Gary WBC 8.2 103/ul Normal 4.0-11.0 [facility] Comment on above: Performed By: #### C BC #### [facility] [address] [place] [address] Dr. Db Gary CREATININEon 06-28-2022 Creatinine [Mass/Vol] 0.90 mg/dL Normal 0.55-1.02 [facility] Comment on above: Performed By: #### A ST, CRP, ALT, CREA, BUN #### [facility] [address] [place] [address] Dr. Db Gary EGFR-AF SWEDISH >60 Normal >=[address] [facility] Comment on above: Performed By: #### A ST, CRP, ALT, CREA, BUN #### [facility] [address] [place] [address] Dr. Db Gary EGFR-NON AF SWEDISH >60 Normal >=60 [facility] Comment on above: Performed By: #### A ST, CRP, ALT, CREA, BUN #### [facility] [address] [place] [address] Dr. Db Gary CRPon 06-28-2022 CRP [Mass/Vol] mg/L Normal <=1.0 [facility] Comment on above: Performed By: #### A ST, CRP, ALT, CREA, BUN #### [facility] [address] [address] [address] Db Gary SED RATE WESTERGRENon 2021 SED RATE 7 mm/hr Normal <=20 [facility] Comment on above: Performed By: #### S EDR #### [facility] [address] [place] [address] Dr. Db Gary SGOTon 06-28-2022 AST [Catalytic activity/Vol] 16 U/L Normal 15-37 [facility] Comment on above: Performed By: #### A ST, CRP, ALT, CREA, BUN #### [facility] [address] [place] [address] Dr. Db Gary SGPTon 06-28-2022 ALT [Catalytic activity/Vol] 22 U/L Normal 14-59 [facility] Comment on above: Performed By: #### A ST, CRP, ALT, CREA, BUN #### [facility] [address] [place] [address] Dr. Db Gary CBC AUTO DIFFon 06-07-2022 BASO # 0.1 103/ul Normal 0.0-0.1 [facility] Comment on above: Performed By: #### C BC ####[facility] [address] [address]Dr. Db Gary Basophils/100 WBC (Bld) 0.7 % Normal 0.2-2.0 [facility] Comment on above: Performed By: #### C BC ####[facility] [address] [address]DrRin Gary EO # 0.1 103/ul Normal 0.0-0.7 [facility] Comment on above: Performed By: #### C BC ####[facility] [address] [address]Dr. Db Gary Eosinophils/100 WBC (Bld) 1.1 % Normal 0.9-7.0 [facility] Comment on above: Performed By: #### C BC ####[facility] [address] [id number]. Db Gary Erythrocyte distribution width (RBC) [Ratio] 12.0 % Normal 11.0-15.0 [facility] Comment on above: Performed By: #### C BC ####[facility] [address] [address]Dr. Db Gary Hematocrit (Bld) [Volume fraction] 37.4 % Normal 36.0-48.0 [facility] Comment on above: Performed By: #### C BC ####[facility] [address] [place], [place] [address]Dr. Db Gary Hemoglobin (Bld) [Mass/Vol] 13.0 g/dL Normal 12.0-16.0 [facility] Comment on above: Performed By: #### C BC ####[facility] [address] [place], [place] [address]Dr. Db Gary IG # 0.01 10e3/ul Normal 0.00-0.03 [facility] Comment on above: Performed By: #### C BC ####[facility] [address] [place], [place] [address]Dr. Db Gary IG % 0.1 % Normal 0.0-0.5 [facility] Comment on above: Performed By: #### C BC ####[facility] [address] [place], [place] [address]Dr. Db Gary LYMPH # 3.0 103/ul Normal 1.2-3.8 [facility] Comment on above: Performed By: #### C BC ####[facility] [address] [place], [place] [address]Dr. Db Gary Lymphocytes/100 WBC (Bld) 41.3 % Normal 20.5-60.0 [facility] Comment on above: Performed By: #### C BC ####[facility] [address] [place], [place] [address]Dr. Db Gary MANUAL DIFF REQ NO Normal [facility] Comment on above: Performed By: #### C BC ####[facility] [address] [id number]. Db Gary MCH (RBC) [Entitic mass] 29.3 pg Normal 26.7-34.0 [facility] Comment on above: Performed By: #### C BC ####[facility] [facility] [id number] [place] [address]Dr. Db Gary MCHC (RBC) [Mass/Vol] 34.8 g/dL Normal 29.9-35.2 [facility] Comment on above: Performed By: #### C BC ####[facility] [address] [place], [place] [address]Dr. Db Gary MCV (RBC) [Entitic vol] 84.4 fL Normal 81.0-99.0 [facility] Comment on above: Performed By: #### C BC ####[facility] [address] [place], [place] [address]Dr. Db Abdirahman MONO # 0.7 103/ul Normal 0.3-0.8 [facility] Comment on above: Performed By: #### C BC ####[facility] [address] [place], [place] [address]Dr. Db Abdirahman Monocytes/100 WBC (Bld) 10.2 % Normal 1.7-12.0 [facility] Comment on above: Performed By: #### C BC ####[facility] [address] [place], [place] [address]Dr. Db Gary NEUT # 3.4 103/ul Normal 1.4-6.5 [facility] Comment on above: Performed By: #### C BC ####[facility] [address] [place], [place] [id number]. Db Abdirahman Neutrophils/100 WBC (Bld) 46.6 % Normal 43.0-75.0 [facility] Comment on above: Performed By: #### C BC ####[facility] [address] [place], [place] [address]Dr. Db Abdirahman Platelet mean volume (Bld) [Entitic vol] 9.6 fL Normal 9.5-13.5 [facility] Comment on above: Performed By: #### C BC ####[facility] [address] [place], [place] [address]Lk. Db Gary PLT 235 103/ul Normal 150-450 [facility] Comment on above: Performed By: #### C BC ####[facility] [address] [place], [place] [address]Nd. Db Gary RBC 4.43 106/ul Normal 4.20-5.40 [facility] Comment on above: Performed By: #### C BC ####[facility] [address] [place], [place] [address]Nx. Db Gary WBC 7.3 103/ul Normal 4.0-11.0 [facility] Comment on above: Performed By: #### C BC ####[facility] [address] [place], [place] [address]Xg. Db Gary CTA HEART-CORONARY/ ARTERY B YPASS GRAFT WITH 3DPPon 10-05-2019 CTA HEART-CORONARY/ ARTERY BYPASS GRAFT WITH 3DPP [facility] Department of Radiology [address] [place] [id number] ======== Patient Name: CARLOTTA DIGGS : 1985 Sex: F Age: Race: White Pt. Location: 30 Patient Status: D Ordered Date: 08/29/2019 9:00:00 AM Completed Date: 10/05/2019 02:41 PM Requesting Provider: VENKATA ROSADO Attending Provider: VENKATA ROSADO Report Copy To: AFIA FIGUEROA Signs & Symptoms: R07.9 Chest pain, unspecified I10 History: Katherine See attached paperwork for CTA Coronaries. labs done 08/28/19 gilsum auth# [id number] 09/03/19-12/02/19 cpt code 73942 *mla Comments: coronary CTA to rule out [...] effusion. Electronically signed by:Nitish Solitario. Transcribed by: [email or web address], User Resident: Electronically Signed by: NITISH SOLITARIO @ 10/09/2019 04:23 PM Normal [facility] Comment on above: Order Comment: coron dangelo CTA to rule out significant major epicardial coronary artery disease and/or congenital anomalies Large Joint Arthro/Inj: L gr eater trochanteric bursa [facility] Vital Signs Date Time Vital Sign Value Performing Clinician Dianelys langston 12-27-2023 14:59-0500 Body height 162.6 cm Afia Figueroa NP Work Phone: [facility] 12-27-2023 14:59-0500 Body mass index (BMI) [Ratio] 41.23 kg/m2 Afia Figueroa NP Work Phone: [facility] 12-27-2023 14:59-0500 Body temperature 97.11 [degF] Afia Figueroa NP Work Phone: [facility] 12-27-2023 14:59-0500 Body weight 108.95 kg Afia Aichholz [employer] SUPERVISOR Work Phone: [facility] 12-27-2023 14:59-0500 Diastolic blood pressure 82 mm[Hg] Afia Henry [employer] SUPERVISOR Work Phone: [facility] 12-27-2023 14:59-0500 Heart rate 87 /min Afia Shepardantoine [employer] SUPERVISOR Work Phone: [facility] 12-27-2023 14:59-0500 Respiratory rate 18 /min Afia Henry [employer] SUPERVISOR Work Phone: [facility] 12-27-2023 14:59-0500 SaO2% (BldA) [Mass fraction] 99 % Afia Henry [employer] SUPERVISOR Work Phone: [facility] 12-27-2023 14:59-0500 Systolic blood pressure 124 mm[Hg] Afia Henry [employer] SUPERVISOR Work Phone: [facility] 12-23-2023 08:38-0500 Body height 162.6 cm Chela Joseph MD Work Phone: [facility] 12-23-2023 08:38-0500 Body temperature 97.5 [degF] Chela Joseph MD Work Phone: [facility] 12-23-2023 08:38-0500 Body weight 108.8 kg Chela Joseph MD Work Phone: [facility] 12-23-2023 08:38-0500 Diastolic blood pressure 72 mm[Hg] Chela Joseph MD Work Phone: [facility] 12-23-2023 08:38-0500 Heart rate 66 /min Chela Joseph MD Work Phone: [facility] 12-23-2023 08:38-0500 Systolic blood pressure 115 mm[Hg] Chela Joseph MD Work Phone: [facility] 07-07-2023 15:51-0400 Body temperature 97.2 [degF] Chela Joseph MD Work Phone: [facility] 07-07-2023 15:51-0400 Body weight 104.78 kg Patchase Joseph MD Work Phone: [facility] 07-07-2023 15:51-0400 Diastolic blood pressure 60 mm[Hg] Chela Joseph MD Work Phone: [facility] 07-07-2023 15:51-0400 Heart rate 76 /min Patchase Joseph MD Work Phone: [facility] 07-07-2023 15:51-0400 Respiratory rate 16 /min Chela Joseph MD Work Phone: [facility] 07-07-2023 15:51-0400 SaO2% (BldA) [Mass fraction] 98 % Chela Joseph MD Work Phone: [facility] 07-07-2023 15:51-0400 Systolic blood pressure 112 mm[Hg] Chela Joseph MD Work Phone: [facility] 08-11-2022 16:18-0400 Body height 160 cm Chela Joseph MD Work Phone: [facility] 08-11-2022 16:18-0400 Body temperature 97.9 [degF] Chela Joseph MD Work Phone: [facility] 08-11-2022 16:18-0400 Body weight 97.07 kg Chela Joseph MD Work Phone: [facility] 08-11-2022 16:18-0400 Diastolic blood pressure 61 mm[Hg] Chela Joseph MD Work Phone: [facility] 08-11-2022 16:18-0400 Heart rate 68 /min Chela Joseph MD Work Phone: [facility] 08-11-2022 16:18-0400 Systolic blood pressure 114 mm[Hg] Chela Joseph MD Work Phone: [facility] Encounters Encounter Date Encounter Type Care Provider Facility Start: 07-26-2024 End: 07-26-2024 ambulatory AFIA AICHHOLZ Not Available Start: 07-02-2024 End: 07-12-2024 Refill Chela Joseph MD Work Phone: Rheumatology/Pulmonary Comment on above: Refill Request Start: 06-25-2024 End: 06-25-2024 ambulatory AFIA AICHHOLZ Not Available Start: 05-31-2024 Refill Chela doyle MD Work Phone: Rheumatology/Pulmonary Comment on above: Refill Request Start: 05-09-2024 End: 05-09-2024 ambulatory AFIA AICHHOLZ [...] End: 12-27-2023 Office outpatient visit 25 minutes Aifa Aichholz [employer] SUPERVISOR Work Phone: [facility] Comment on above: KYLE (obstructive sle ep [...] syndrome Start: 12-27-2023 End: 12-27-2023 ambulatory AFIA IFGUEROA Not Available Start: 12-27-2023 Bamboo flowsheet Afia Figueroa [employer] SUPERVISOR Work Phone: [facility] Start: 12-27-2023 Bamboo flowsheet Afia Henry [employer] SUPERVISOR Work Phone: [facility] Start: 12-23-2023 End: 12-23-2023 ambulatory PATWILG ANGELAPRASERT Facility:[facility] Start: 12-23-2023 End: 12-23-2023 Patient encounter procedure Chela Joseph MD Work Phone: Rheumatology Comment on above: Seropositive rheumat oid arthritis (HCC) (Primary Dx); High risk medication use Start: 10-10-2023 Refill Patchase doyle MD Work Phone: Rheumatology/Pulmonary Comment on above: Refill Request Start: 10-07-2023 Refill Patchase doyle MD Work Phone: Rheumatology/Pulmonary Comment on above: Refill Request Start: 07-07-2023 End: 07-08-2023 ambulatory AFIA FIGUEROA Facility:[facility] Start: 07-07-2023 End: 07-07-2023 Patient encounter procedure Patchase Joseph MD Work Phone: Rheumatology/Pulmonary Comment on above: Seropositive rheumat oid arthritis (HCC) (Primary Dx); High risk medication use; Trochanteric bursitis of left hip Start: 04-20-2023 ambulatory CHARLIE Lang ity:[facility] Start: 10-14-2022 End: 10-14-[address] [...] for preprocedural laboratory examination DR DALILA MONTES [facility] Start: 06-07-2022 End: 06-08-2022 ambulatory CHARLIE FIGUEROA Facility:[facility] Start: 06-07-2022 End: 06-08-2022 Encounter for preprocedural laboratory examination CHARLIE FIGUEROA Facility:[facility] Start: 06-01-2022 Refill Chela doyle MD Work Phone: Rheumatology Start: 03-22-2022 Refill Chela doyle MD Work Phone: Rheumatology Comment on above: Refill Request Procedures Date Procedure Procedure Detail Performing Clinician Start: 08-11-2022 Arthrocentesis aspir &/inj major jt/bursa w/o us Chela Joseph MD Work Phone: Start: 04-05-2022 Adult depression scr eening assessment Chela Joseph MD Work Phone: Plan of Treatment Date Care Activity Detail Author Start: 07-18-2024 End: 07-18-2024 Patient encounter procedure 07/18/2024 2:00 PM EDT Office Visit Rheumatology [address] [address] Chela Joseph MD [address] [address] Elevated CARINA follow up per ungprasert date/time given Rheumatology Comment on above: Elevated CARINA follow up per ungprasert date/time given Start: 07-15-2024 Influenza vaccination Influenz a Vaccine (#1) [facility] Start: 06-25-2024 End: 09-24-2024 Alanine aminotransferase [Enzymatic activity/volume] in Serum or Plasma ALT/SGPT Lab Routine Seropositive rheumatoid arthritis (HCC) Expected: 06/25/2024 (Approximate), Expires: 09/24/2024 [facility] Work Phone: Comment on above: Expected: 06/25/2024 (Approximate), Expires: 09/24/2024 Start: 06-25-2024 End: 09-24-2024 Aspartate aminotransferase [Enzymatic activity/volume] in Serum or Plasma AST/SGOT BLD Lab Routine Seropositive rheumatoid arthritis (HCC) Expected: 06/25/2024 (Approximate), Expires: 09/24/2024 [facility] Work Phone: Comment on above: Expected: 06/25/2024 (Approximate), Expires: 09/24/2024 Start: 06-25-2024 End: 09-24-2024 C reactive protein [Mass/volume] in Serum or Plasma C-REACTIVE PROTEIN (CRP) Lab Routine Seropositive rheumatoid arthritis (HCC) Expected: 06/25/2024 (Approximate), Expires: 09/24/2024 [facility] Work Phone: Comment on above: Expected: 06/25/2024 (Approximate), Expires: 09/24/2024 Start: 06-25-2024 End: 09-24-2024 CBC W Auto Differential panel - Blood CBC + DIFF Lab Routine Seropositive rheumatoid arthritis (HCC) Expected: 06/25/2024 (Approximate), Expires: 09/24/2024 [facility] Work Phone: Comment on above: Expected: 06/25/2024 (Approximate), Expires: 09/24/2024 Start: 06-25-2024 End: 09-24-2024 CREATININE BLD CREATININE BLD Lab Routine Seropositive rheumatoid arthritis (HCC) Expected: 06/25/2024 (Approximate), Expires: 09/24/2024 [facility] Work Phone: Comment on above: Expected: 06/25/2024 (Approximate), Expires: 09/24/2024 Start: 06-25-2024 End: 09-24-2024 Erythrocyte sedimentation rate SED RATE WESTERGREN Lab Routine Seropositive rheumatoid arthritis (HCC) Expected: 06/25/2024 (Approximate), Expires: 09/24/2024 [facility] Work Phone: Comment on above: Expected: 06/25/2024 (Approximate), Expires: 09/24/2024 Start: 06-25-2024 End: 09-24-2024 Urea nitrogen [Mass/volume] in Serum or Plasma BUN BLOOD Lab Routine Seropositive rheumatoid arthritis ([facility]) Expected: 06/25/2024 (Approximate), Expires: 09/24/2024 [facility] Work Phone: Comment on above: Expected: 06/25/2024 (Approximate), Expires: 09/24/2024 Start: 04-26-2024 End: 04-26-2024 Patient encounter procedure 04/26/2024 3:00 PM EDT Office Visit [facility] [address] [place] [id number] Afia Figueroa NP [address] [place] [address] [facility] Start: 01-25-2024 End: 01-25-2024 Patient encounter procedure 01/25/2024 2:20 PM EDT Office Visit [facility] [address] [facility] [address] [place] [address] Dalila Montes MD [address] [facility] [address] [place] [address] [facility] Start: 12-27-2023 End: 12-27-2023 Patient encounter procedure 12/27/2023 3:00 PM EST Office Visit [facility] [address] [place] [id number] Afia Figueroa, ROSALIE [address] [place] [address] Encounter for screening mammogram for malignant neoplasm of breast (Primary Dx) [facility] Comment on above: Encounter for screen ing mammogram for malignant neoplasm of breast (Primary Dx) Start: 12-27-2023 End: 02-24-2025 MG Breast - bilateral Screening Bilateral screening mammogram Imaging Routine Encounter for screening mammogram for malignant neoplasm of breast Expected: 12/27/2023 (Approximate), Expires: 02/24/2025 [facility] Work Phone: Comment on above: Expected: 12/27/2023 (Approximate), Expires: 02/24/2025 Start: 11-14-2023 Behavioral Health Screening Behavioral Health Screening [facility] Start: 11-14-2023 Depression Assessment Depression Ass [facility] Start: 2023 Mammography Mammogram Screening [facility] Start: 2023 Screening for malign ant neoplasm of breast [facility] Start: 07-15-2023 Influenza vaccination [facility] Start: 04-05-2023 Adult depression scr eening assessment DEPRESSION SCREENING [facility] Start: 11-14-2022 DEPRESSION ASSESSMENT DEPRESSION ASS [facility] Start: 07-15-2022 Influenza vaccination [facility] Start: 06-29-2022 End: 08-29-2022 Alanine aminotransferase [Enzymatic activity/volume] in Serum or Plasma ALT/SGPT Lab Routine Seropositive rheumatoid arthritis (HCC) Expected: 06/29/2022 (Approximate), Expires: 08/29/2022 [facility] Work Phone: Comment on above: Expected: 06/29/2022 (Approximate), Expires: 08/29/2022 Start: 06-29-2022 End: 08-29-2022 Aspartate aminotransferase [Enzymatic activity/volume] in Serum or Plasma AST/SGOT BLD Lab Routine Seropositive rheumatoid arthritis (HCC) Expected: 06/29/2022 (Approximate), Expires: 08/29/2022 [facility] Work Phone: Comment on above: Expected: 06/29/2022 (Approximate), Expires: 08/29/2022 Start: 06-29-2022 End: 08-29-2022 C reactive protein [Mass/volume] in Serum or Plasma C-REACTIVE PROTEIN (CRP) Lab Routine Seropositive rheumatoid arthritis (HCC) Expected: 06/29/2022 (Approximate), Expires: 08/29/2022 [facility] Work Phone: Comment on above: Expected: 06/29/2022 (Approximate), Expires: 08/29/2022 Start: 06-29-2022 End: 08-29-2022 CBC W Auto Differential panel - Blood CBC + DIFF Lab Routine Seropositive rheumatoid arthritis (HCC) Expected: 06/29/2022 (Approximate), Expires: 08/29/2022 [facility] Work Phone: Comment on above: Expected: 06/29/2022 (Approximate), Expires: 08/29/2022 Start: 06-29-2022 End: 08-29-2022 CREATININE BLD CREATININE BLD Lab Routine Seropositive rheumatoid arthritis (HCC) Expected: 06/29/2022 (Approximate), Expires: 08/29/2022 [facility] Work Phone: Comment on above: Expected: 06/29/2022 (Approximate), Expires: 08/29/2022 Start: 06-29-2022 End: 08-29-2022 Erythrocyte sedimentation rate SED RATE WESTERGREN Lab Routine Seropositive rheumatoid arthritis (HCC) Expected: 06/29/2022 (Approximate), Expires: 08/29/2022 [facility] Work Phone: Comment on above: Expected: 06/29/2022 (Approximate), Expires: 08/29/2022 Start: 06-29-2022 End: 08-29-2022 Urea nitrogen [Mass/volume] in Serum or Plasma BUN BLOOD Lab Routine Seropositive rheumatoid arthritis (HCC) Expected: 06/29/2022 (Approximate), Expires: 08/29/2022 [facility] Work Phone: Comment on above: Expected: 06/29/2022 (Approximate), Expires: 08/29/2022 Start: 11-14-2021 DEPRESSION ASSESSMENT DEPRESSION ASS ESSMENT [facility] Start: 04-21-2021 COVID-19 VACCINE (3 - Pfizer risk series) COVID-19 VACCINE (3 - Pfizer risk series) [facility] Start: 2013 HPV TESTING HPV TESTING [facility] Start: 2013 Screening for malign ant neoplasm of cervix [facility] Start: 01-09-2012 Urine microalbumin profile [facility] Start: 2004 PAP TESTING PAP TESTING [facility] Start: 2004 Screening for malign ant neoplasm of cervix [facility] Start: 2002 SHINGRIX VACCINE (1 of 2) MALLOY GRIX VACCINE (1 of 2) [facility] Start: 02-06-2002 HEPATITIS B (2 of 3 - 3-dose series) HEPATITIS B (2 of 3 - 3-dose series) [facility] Start: 02-06-2002 Hepatitis B Vaccine (2 of 3 - 3-dose series) Hepatitis B Vaccine (2 of 3 - 3-dose series) [facility] Start: 2001 Anxiety Screening Anxiety Screening [facility] Start: 2001 Depression Screening Depression Scre ening [facility] Start: 2001 HIV SCREENING HIV SCREENING [facility] Start: 2001 HIV screening HIV Screening [facility] Start: 1995 Adult depression scr eening assessment DEPRESSION SCREENING [facility] Start: 1994 Screening for malign ant neoplasm of cervix Cervical Cancer Screening [facility] Start: 1989 PNEUMOCOCCAL (1 - PCV) PNEUMOC OCCAL (1 - PCV) [facility] Start: 1989 Pneumococcal vaccination [facility] End: 07-06-2024 Alanine aminotransferase [Enzymatic activity/volume] in Serum or Plasma ALT/SGPT Lab Routine Seropositive rheumatoid arthritis (HCC) Every 3 months for 4 Occurrences starting 07/07/2023 until 07/06/2024, 1 completed [facility] Work Phone: Comment on above: Every 3 months for 4 Occurrences starting 07/07/2023 until 07/06/2024, 1 completed End: 07-06-2024 Aspartate aminotransferase [Enzymatic activity/volume] in Serum or Plasma AST/SGOT BLD Lab Routine Seropositive rheumatoid arthritis (HCC) Every 3 months for 4 Occurrences starting 07/07/2023 until 07/06/2024, 1 completed [employer] Work Phone: Comment on above: Every 3 months for 4 Occurrences starting 07/07/2023 until 07/06/2024, 1 completed End: 07-06-2024 C reactive protein [Mass/volume] in Serum or Plasma C-REACTIVE PROTEIN (CRP) Lab Routine Seropositive rheumatoid arthritis ([facility]) Every 3 months for 4 Occurrences starting 07/07/2023 until 07/06/2024, 1 completed [employer] Work Phone: Comment on above: Every 3 months for 4 Occurrences starting 07/07/2023 until 07/06/2024, 1 completed End: 07-06-2024 CBC W Auto Differential panel - Blood CBC + DIFF Lab Routine Seropositive rheumatoid arthritis ([facility]) Every 3 months for 4 Occurrences starting 07/07/2023 until 07/06/2024, 1 completed [employer] Work Phone: Comment on above: Every 3 months for 4 Occurrences starting 07/07/2023 until 07/06/2024, 1 completed End: 07-06-2024 CREATININE BLD CREATININE BLD Lab Routine Seropositive rheumatoid arthritis ([facility]) Every 3 months for 4 Occurrences starting 07/07/2023 until 07/06/2024, 1 completed [employer] Work Phone: Comment on above: Every 3 months for 4 Occurrences starting 07/07/2023 until 07/06/2024, 1 completed End: 07-06-2024 Erythrocyte sedimentation rate SED RATE WESTERGREN Lab Routine Seropositive rheumatoid arthritis ([facility]) Every 3 months for 4 Occurrences starting 07/07/2023 until 07/06/2024, 1 completed [employer] Work Phone: Comment on above: Every 3 months for 4 Occurrences starting 07/07/2023 until 07/06/2024, 1 completed End: 07-06-2024 Urea nitrogen [Mass/volume] in Serum or Plasma BUN BLOOD Lab Routine Seropositive rheumatoid arthritis ([facility]) Every 3 months for 4 Occurrences starting 07/07/2023 until 07/06/2024, 1 completed [employer] Work Phone: Comment on above: Every 3 months for 4 Occurrences starting 07/07/2023 until 07/06/2024, 1 completed [facility] Immunizations Immunization Date Immunization Notes Care Provider Constanza zepeda 03-24-2021 COVID-19 vaccine, ag e 12+ yr (PFIZER-BIONTECH - PURPLE TOP) Chela Joseph MD Work Phone: [facility] 03-05-2021 COVID-19 vaccine, ag e 12+ yr (PFIZER-BIONTECH - PURPLE TOP) Chela Joseph MD Work Phone: [facility] 01-09-2002 diphtheria, tetanus toxoids and acellular pertussis vaccine, unspecified formulation Chela Joseph MD Work Phone: [facility] 01-09-2002 haemophilus influenz ae type b conjugate and Hepatitis B vaccine Chela Joseph MD Work Phone: [facility] 01-09-2002 poliovirus vaccine, inactivated Patchase Joseph MD Work Phone: [facility] 01-09-2002 hepatitis B vaccine, unspecified formulation Chela Joseph MD Work Phone: [facility] 07-09-1996 measles, mumps and rubella virus vaccine Chela Joseph MD Work Phone: [facility] 04-24-1987 diphtheria, tetanus toxoids and acellular pertussis vaccine, unspecified formulation Chela Joseph MD Work Phone: [facility] 03-15-1986 diphtheria, tetanus toxoids and pertussis vaccine Chela Joseph MD Work Phone: [facility] 03-15-1986 measles, mumps and rubella virus vaccine Chela Joseph MD Work Phone: [facility] 03-15-1986 trivalent poliovirus vaccine, live, oral Patchase Joseph MD Work Phone: [facility] 04-07-1984 diphtheria, tetanus toxoids and pertussis vaccine Chela Joseph MD Work Phone: [facility] 04-07-1984 trivalent poliovirus vaccine, live, oral Chela Joseph MD Work Phone: [facility] 1985 diphtheria, tetanus toxoids and pertussis vaccine Chela Joseph MD Work Phone: [facility] 1985 trivalent poliovirus vaccine, live, oral Chela Joseph MD Work Phone: [facility] Payers Date Payer Category Payer Private Health Insurance [id number] 2023 Private Health Insurance [id number] 2022 Medicaid [id number] 2021 Medicaid [employer] [id number] 2021-[facility] [phone] [place] [address] Medicaid [id number] 2021 Medicaid [id number] 1985 Unknown [id number] 2..840.1.386779.3.579.2. 59 1985 Unknown [id number] 2..840.1.731936.3.579.2. 593 1985 Unknown [id number] 2.16.840.1.197955.3.579.2. 59 1983 Unknown [id number] 2.16.840.1.912533.3.579.2. 59 1983 Unknown [id number] 2.16.840.1.113633.3.579.2. 593 1983 Unknown [id number] 2.16.840.1.342298.3.579.2. 593 1983 Unknown [id number] 2.16.840.1.394313.3.579.2. 593 1983 Unknown [id number] 2.16.840.1.143216.3.579.2. 1259 1983 Unknown [id number] 2.16.840.1.053153.3.579.2. 9 1983 Unknown [id number] 2.16.840.1.882556.3.579.2. 9 1983 Unknown [id number] 2.16.840.1.238369.3.579.2. 1258 1983 Unknown [id number] 2.16.840.1.408624.3.579.2. 9 1983 Unknown [id number] 2.16.840.1.015645.3.579.2. 1258 1983 Unknown [id number] 2.16.840.1.895039.3.579.2. 9 1983 Unknown [id number] 2.16.840.1.146253.3.579.2. 9 1985 Unknown [id number] 2.16.840.1.866368.3.579.2. 1259 1961 Private Health Insurance [facility] [id number] 1961 Unknown [id number] Medicaid [id number] Social History Date Type Detail Facility Start: 12-11-2021 End: 08-11-2022 Tobacco smoking status NHIS Never smoked tobacco [facility] Start: 12-11-2021 End: 08-11-2022 Tobacco use and exposure Smokeless tobacco non-user [facility] Start: 1985 Sex Assigned At Not on file [facility] Start: 2022 End: 08-11-2022 Exposure to SARS-CoV-2 (event) Not sure [facility] Start: 08-11-2022 End: 07-07-2023 [facility] Start: 08-11-2022 End: 07-07-2023 Tobacco use panel [facility] Adult Depression Scr eening Assessment 1 [facility] Start: 12-25-2023 Tobacco smoking stat us NHIS Ex-smoker [facility] End: 11-14-2012 History of tobacco use Current smoker [facility] End: 11-14-2012 History of tobacco use Cigarette Smoker [facility] Start: 12-27-2023 Alcohol intake Ex-drinker (finding) [facility] Within the last year , have you been afraid of your partner or ex-partner? No [facility] Are you now , , , , never or living with a partner? Never [facility] Do you feel stress - tense, restless, nervous, or anxious, or unable to sleep at night because your mind is troubled all the time - these days [OSQ] To some extent [facility] (I/We) worried wheth er (my/our) food would run out before (I/we) got money to buy more. DK or Refused [facility] Clinical Notes 03-23-2022 to 07-03-2024 Telephone Encounter - Alina Canales RN - 07/03/2024 2:41 PM EDTTelephone Encounter - Alina Canales RN - 07/03/2024 2:41 PM EDTTelephone Encounter - Silvia Diggs MA - 07/02/2024 10:49 AM EDT Note Date & Type Note Facility 07-03-2024 Telephone encounter Note Patient requests via MyChart refills as follows: Requested Prescriptions Pending Prescriptions Disp Refills hydrOXYchloroQUINE (PLAQUENIL) 200 mg tablet 180 tablet 3 Sig: Take 1 tablet by mouth two times a day. Needs labs and needs an eye exam. [facility] 07-03-2024 Miscellaneous Notes Patient requests via MyChart refills as follows: Requested Prescriptions Pending Prescriptions Disp Refills hydrOXYchloroQUINE (PLAQUENIL) 200 mg tablet 180 tablet 3 Sig: Take 1 tablet by mouth two times a day. Needs labs and needs an eye exam. Most recent Rheumatology visit: 12/23/2023 (with Chela Joseph) Eye exam ?, MC message sent. Upcoming Rheumatology Appointments - Next 365 Days Visit Type Date Time Department [facility] 07/18/2024 2:00 PM [facility] MAIN A50 CBC: None on file in the last 6 months Vitamin D: None on file in the last 6 months LFT: None on file in the last 6 months Hepatic Function: Creatinine: None on file in the last 6 months ESR/CRP: None on file in the last 6 months Uric Acid: None on file in the last 6 months documented in this encounter [facility] 07-02-2024 Telephone encounter Note Most recent Rheumatology visit: 12/23/2023 (with Chela Joseph) Eye exam ?, MC message sent. Upcoming Rheumatology Appointments - Next 365 Days Visit Type Date Time Department [facility] 07/18/2024 2:00 PM [facility] A50 CBC: None on file in the last 6 months Vitamin D: None on file in the last 6 months LFT: None on file in the last 6 months Hepatic Function: Creatinine: None on file in the last 6 months ESR/CRP: None on file in the last 6 months Uric Acid: None on file in the last 6 months [facility] 06-01-2024 Telephone encounter Note Most recent Rheumatology visit: 12/23/2023 (with Chela Joseph) Rheumatology Care Team: None on file Recent Office Visits - This Specialty 12/23/2023 Seropositive rheumatoid arthritis (HCC) Rheumatology Chela Joseph MD 07/07/2023 Seropositive rheumatoid arthritis (HCC) Rheumatology/Pulmonary UngpraChela feng MD 08/11/2022 Trochanteric bursitis of left hip Rheumatology Chela Joseph MD Upcoming Rheumatology Appointments - Next 365 Days Visit Type Date Time Department [facility] 07/18/2024 2:00 PM [facility] MAIN A50 Last Ophthalmology Check for Plaquenil (Hydroxychloroquine) Last OCT Macula Exam No resulted procedures found. Last Visual Field Exam No resulted procedures found. CBC: None on file in the last 6 months Vitamin D: None on file in the last 6 months LFT: None on file in the last 6 months Hepatic Function: Creatinine: None on file in the last 6 months ESR/CRP: None on file in the last 6 months Uric Acid: None on file in the [...] (HCC) Open Future (Single Instance) Lab Orders Expected Expires Ordered ALT/SGPT [SQALT] 06/25/24 09/24/24 12/23/23 Auth. provider: Chela Joseph MD Assoc. diagnoses: Seropositive rheumatoid arthritis (HCC) AST/SGOT BLD [SQAST] 06/25/24 09/24/24 12/23/23 Auth. provider: Chela Joseph MD Assoc. diagnoses: Seropositive rheumatoid arthritis (HCC) BUN BLOOD [SQBUN] 06/25/24 09/24/24 12/23/23 Auth. provider: Chela Joseph MD Assoc. diagnoses: Seropositive rheumatoid arthritis (HCC) CBC + DIFF [SQCBCDIF] 06/25/24 09/24/24 12/23/23 Auth. provider: Chela Joseph MD Assoc. diagnoses: Seropositive rheumatoid arthritis (HCC) C-REACTIVE PROTEIN (CRP) [SQCRP] 06/25/24 09/24/24 12/23/23 Auth. provider: Chela Joseph MD Assoc. diagnoses: Seropositive rheumatoid arthritis (HCC) SED RATE WESTERGREN [SQWSR] 06/25/24 09/24/24 12/23/23 Auth. provider: Chela Joseph MD Assoc. diagnoses: Seropositive rheumatoid arthritis (HCC) CREATININE BLD [SQCRET] 06/25/24 09/24/24 12/23/23 Auth. provider: Chela Joseph MD Assoc. diagnoses: Seropositive rheumatoid arthritis (HCC) Carlotta Henson RN T [facility] 06-01-2024 Miscellaneous Notes Most recent Rheumatology visit: 12/23/2023 (with Chela Joseph) Rheumatology Care Team: None on file Recent Office Visits - This Specialty 12/23/2023 Seropositive rheumatoid arthritis (HCC) Rheumatology Chela Joseph MD 07/07/2023 Seropositive rheumatoid arthritis (HCC) Rheumatology/Pulmonary Chela Joseph MD 08/11/2022 Trochanteric bursitis of left hip Rheumatology Chela Joseph MD Upcoming Rheumatology Appointments - Next 365 Days Visit Type Date Time Department [facility] 07/18/2024 2:00 PM [facility] MAIN A50 Last Ophthalmology Check for Plaquenil (Hydroxychloroquine) Last OCT Macula Exam No resulted procedures found. Last Visual Field Exam No resulted procedures found. CBC: None on file in the last 6 months Vitamin D: None on file in the last 6 months LFT: None on file in the last 6 months Hepatic Function: Creatinine: None on file in the last 6 months ESR/CRP: None on file in the last 6 months Uric Acid: None on file in the [...] (HCC) Open Future (Single Instance) Lab Orders Expected Expires Ordered ALT/SGPT [SQALT] 06/25/24 09/24/24 12/23/23 Auth. provider: Chela Joseph MD Assoc. diagnoses: Seropositive rheumatoid arthritis (HCC) AST/SGOT BLD [SQAST] 06/25/24 09/24/24 12/23/23 Auth. provider: Chela Joseph MD Assoc. diagnoses: Seropositive rheumatoid arthritis (HCC) BUN BLOOD [SQBUN] 06/25/24 09/24/24 12/23/23 Auth. provider: Chela Joseph MD Assoc. diagnoses: Seropositive rheumatoid arthritis (HCC) CBC + DIFF [SQCBCDIF] 06/25/24 09/24/24 12/23/23 Auth. provider: Chela Joseph MD Assoc. diagnoses: Seropositive rheumatoid arthritis (HCC) C-REACTIVE PROTEIN (CRP) [SQCRP] 06/25/24 09/24/24 12/23/23 Auth. provider: Chela Joseph MD Assoc. diagnoses: Seropositive rheumatoid arthritis (HCC) SED RATE WESTERGREN [SQWSR] 06/25/24 09/24/24 12/23/23 Auth. provider: Chela Joseph MD Assoc. diagnoses: Seropositive rheumatoid arthritis (HCC) CREATININE BLD [SQCRET] 06/25/24 09/24/24 12/23/23 Auth. provider: Chela Joseph MD Assoc. diagnoses: Seropositive rheumatoid arthritis (HCC) Carlotta Henson RN documented in this encounter [facility] 12-27-2023 History of Present illness Narrative Associated [...] Medical History: Diagnosis Date Anxiety and depression (CMS/[facility]) 12/27/2023 Cervical pain (neck) Cholesteatoma, right COVID 10/26/2023 ETD (Eustachian tube dysfunction), bilateral Heart palpitations KYLE (obstructive sleep apnea) Pain, joint, hand, right Perforation of right tympanic membrane PFO (patent foramen ovale) now resolved. Rheumatoid arthritis involving both hands with positive rheumatoid factor ([facility]) Tobacco user Tubal Past Surgical History: Procedure Laterality Date CARPAL TUNNEL RELEASE Right 01/12/2018 @ [facility] HYSTERECTOMY 12/10/2019 Vaginal with right salpinectomy, cystoscopy MASTOID SURGERY Left mastoidectomy MYRINGOTOMY W/ TUBES Right @ [facility] OTHER SURGICAL HISTORY 03/13/2013 Rt T-Tube Placement [...] to drugs (D84.821) documented in this encounter [facility] 12-23-2023 Note HNO ID: [id number] Author: CHELA JOSEPH MD Service: ? Author Type: Physician Type: Progress Notes Filed: 12/23/2023 09:02 Note Text: Chela Joseph MD Carlotta Diggs December 22, 2023 Referring Provider:Self PCP: Afia Figueroa, MACHINE BASTER, MACHINE BASTER Chief Complaint: Patient presents with: Joint Pain [...] COVID-19 original vaccine, age 12+ yr, monovalent ([employer] - PURPLE TOP) 03/05/2021 03/24/2021 Haemophilus influenzae [...] sound, no adventi (more content not included)... [facility] 12-23-2023 Instructions Chela Joseph MD - 12/23/2023 8:51 AM EST Follow up Jul 13 at 2 PM documented in this encounter [facility] 12-23-2023 History of Present illness Narrative MD Carlotta Moyer December 22, 2023 Referring Provider:Self PCP: Afia Figueroa, MACHINE BASTER, MACHINE BASTER Chief Complaint: Patient presents with: Joint Pain [...] COVID-19 original vaccine, age 12+ yr, monovalent ([employer] - PURPLE TOP) 03/05/2021 03/24/2021 Haemophilus influenzae [...] of hydroxychloroquine. She will ask her local phys therapist to send ophthalmology report to me. Recommendations/Plan Plan discussed with patient Return Visit: Follow up Jul 13 at 2 PM in person I spent a total of 30 minutes on the date of the service which included preparing to see the patient, [id number] patient care, completing clinical documentation, obtaining and/or reviewing separately obtained history, performing a medically appropriate examination, counseling and educating the patient/family/caregiver, and ordering medications, tests, or procedures. Chela Joseph MD Referring Provider:Self PCP: Afia Figueroa CNP, MACHINE BASTER Answers submitted by the patient for this [...] Swollen Glands: No documented in this encounter [facility] 10-10-2023 Miscellaneous Notes Most recent Rheumatology visit: 07/07/2023 (with Chela Joseph) Appt 11/17/2023 Recent Office Visits - This Specialty 07/07/2023 Seropositive rheumatoid arthritis (HCC) Rheumatology/Pulmonary Chela Joseph MD 08/11/2022 Trochanteric bursitis of left hip Rheumatology Chela Joseph MD 04/09/2022 Seropositive rheumatoid arthritis (HCC) Rheumatology Chela Joseph MD Upcoming Rheumatology Appointments - Next 365 Days Visit Type Date Time Department [facility] 11/17/2023 3:00 PM [facility] MAIN/PULM SARCOID [...] Lab Orders None documented in this encounter [facility] 10-10-2023 Miscellaneous Notes Most recent Rheumatology visit: [...] Lab Orders None documented in this encounter [facility] 07-07-2023 Note HNO ID: [id number] Author: Chela Joseph MD Service: ? Author Type: Physician Type: Progress Notes Filed: 07/07/2023 4:23 PM Note Text: MD Carlotta Moyer July 07, 2023 Referring Provider: PCP: Afia Figueroa, CHARLIE, MACHINE BASTER Chief Complaint: Patient presents with: Follow Up [...] COVID-19 original vaccine, age 12+ yr, monovalent ([employer] - PURPLE TOP) 03/05/2021 03/24/2021 Haemophilus influenzae [...] tender, not swollen (more content not included)... [facility] 07-07-2023 Instructions Chela Joseph MD - 07/07/2023 4:09 PM EDT Follow up Oct 13 at 8.30 documented in this encounter [facility] 07-07-2023 History of Present illness Narrative MD Carlotta Moyer July 07, 2023 Referring Provider: PCP: Afia Figueroa, MACHINE BASTER, MACHINE BASTER Chief Complaint: Patient presents with: Follow Up [...] COVID-19 original vaccine, age 12+ yr, monovalent ([employer] - PURPLE TOP) 03/05/2021 03/24/2021 Haemophilus influenzae [...] which included preparing to see the patient, [id number] patient care, completing clinical documentation, obtaining and/or reviewing separately obtained history, performing a medically appropriate examination, counseling and educating the patient/family/caregiver, and ordering medications, tests, or procedures. Chela Joseph MD Referring Provider: PCP: Afia Figueroa CNP, MACHINE BASTER documented in this encounter [facility] 08-11-2022 History of Present illness Narrative Associated Order(s): Large Joint Arthro/Inj: L greater trochanteric bursa Post-Procedure Diagnose(s): Seropositive rheumatoid arthritis (HCC); High risk medication use; Trochanteric bursitis of left hip MD Carlotta Moyer August 10, 2022 Referring Provider:Self PCP: Afia Figueroa CNP, MACHINE BASTER Chief Complaint: Patient presents with: Joint Pain [...] COVID-19 original vaccine, age 12+ yr, monovalent ([employer] - PURPLE TOP) 03/05/2021 03/24/2021 DTP 1983 [...] which included preparing to see the patient, [id number] patient care, completing clinical documentation, obtaining and/or reviewing separately obtained history, performing a medically appropriate examination, counseling and educating the patient/family/caregiver, and ordering medications, tests, or procedures. Chela Joseph MD Referring Provider:Self PCP: Afia Figueroa CNP, MACHINE BASTER Answers submitted by the patient for this [...] trochanteric bursa Informed Consent Consent Obtained: Verbal [place] Protocol A moment to CARE was completed. [...] completed when applicable documented in this encounter [facility] 06-15-2022 Note OPERATIVE NOTE OPERATION DATE: 06/15/2022 PRIMARY CARE PROVIDER: Afia Figeuroa CNP SURGEON: Dalila Montes M.D. PREOPERATIVE DIAGNOSIS: [...] radial myringotomy was performed and a modified Eemry's T-tube was folded, inserted in the middle ear and opened in the middle ear using microdissection. Patient was then awakened and taken to the recovery room in good condition. [facility] 03-23-2022 Miscellaneous Notes Most recent Rheumatology visit: 12/11/2021 (with Patwilg Ungprasert) Upcoming Rheumatology Appointments - Next 365 Days Visit Type Date Time Department [facility] 04/09/2022 4:00 PM [facility] A50 Last Ophthalmology Check for Plaquenil [...] Gracie Ernandez RN documented in this encounter [facility] Evaluation note Diagnosis Seropositive rheumatoid arthritis (HCC) [facility] Seropositive rheumatoid arthritis (HCC)- Primary Rheumatoid arthritis [facility] Trochanteric bursitis of left hip- Primary Enthesopathy of hip region Seropositive rheumatoid arthritis (HCC) Rheumatoid arthritis High risk medication use Encounter for long-term (current) use of other medications [facility] Diagnosis Seropositive rheumatoid arthritis (HCC)- Primary Rheumatoid arthritis High risk medication use Encounter for long-term (current) use of other medications Trochanteric bursitis of left hip Enthesopathy of hip region [facility] Seropositive rheumatoid arthritis (HCC) Rheumatoid arthritis [facility] Diagnosis Seropositive rheumatoid arthritis (HCC) Rheumatoid arthritis [facility] Diagnosis Seropositive rheumatoid arthritis (HCC)- Primary Rheumatoid arthritis High risk medication use Encounter for long-term (current) use of other medications [facility] Diagnosis KYLE (obstructive sleep apnea)- Primary [...] Other headache syndrome [facility] Seropositive rheumatoid arthritis (HCC) Rheumatoid arthritis [facility] Diagnosis Seropositive rheumatoid arthritis (HCC) Rheumatoid arthritis documented in this encounter [facility] Summary Purpose Family History No Family History [...] section and content) DATE CREATED AUTHOR 10/19/2019 [facility] DATE CREATED AUTHOR AUTHOR'S ORGANIZ ATION 11/18/2022 [facility] DATE CREATED AUTHOR AUTHOR'S ORGANIZ ATION 03/24/2023 [facility] DATE CREATED AUTHOR AUTHOR'S ORGANIZ ATION 12/25/2023 [facility] DATE CREATED AUTHOR AUTHOR'S ORGANIZ ATION 03/31/2024 [facility] EP[facility] DATE CREATED AUTHOR AUTHOR'S ORGANIZ ATION 07/28/2024 [facility] Source Comments (unrecognize d section and content) In the event this informatio n is protected by the [facility] Confidentiality of Alcohol and Drug Abuse Patient Records regulations: The Federal rules restrict any use of the information to criminally investigate or prosecute any alcohol or drug abuse patient.[facility] the event this information is protected by the Federal Confidentiality of Alcohol and Drug Abuse Patient Records regulations: The Federal rules restrict any use of the information to criminally investigate or prosecute any alcohol or drug abuse patient.[facility] the event this information is protected by the Federal Confidentiality of Alcohol and Drug Abuse Patient Records regulations: The Federal rules restrict any use of the information to criminally investigate or prosecute any alcohol or drug abuse patient.[facility] the event this information is protected by the Federal Confidentiality of Alcohol and Drug Abuse Patient Records regulations: The Federal rules restrict any use of the information to criminally investigate or prosecute any alcohol or drug abuse patient.[facility] the event this information is protected by the Federal Confidentiality of Alcohol and Drug Abuse Patient Records regulations: The Federal rules restrict any use of the information to criminally investigate or prosecute any alcohol or drug abuse patient.[facility] the event this information is protected by the Federal Confidentiality of Alcohol and Drug Abuse Patient Records regulations: The Federal rules restrict any use of the information to criminally investigate or prosecute any alcohol or drug abuse patient.[facility] the event this information is protected by the Federal Confidentiality of Alcohol and Drug Abuse Patient Records regulations: The Federal rules restrict any use of the information to criminally investigate or prosecute any alcohol or drug abuse patient.[facility] the event this information is protected by the Federal Confidentiality of Alcohol and Drug Abuse Patient Records regulations: The Federal rules restrict any use of the information to criminally investigate or prosecute any alcohol or drug abuse patient.[facility] the event this information is protected by the Federal Confidentiality of Alcohol and Drug Abuse Patient Records regulations: The Federal rules restrict any use of the information to criminally investigate or prosecute any alcohol or drug abuse patient.[facility] Reason for Visit (unrecogniz ed section and content) Reason Onset Date Comments Refill Request 03/22/2022 Reason Comments Joint Pain Reason Comments Follow Up Reason Onset Date Comments Refill Request 10/07/2023 Reason Onset Date Comments Refill Request 10/10/2023 Reason Comments Refill Request Reason Onset Date Comments Refill Request 07/02/2024 Care Teams (unrecognized sec tion and content) Lay Out Worker Relationship Specialty Start Date End Date Afia Figueroa MACHINE BASTER [address] [place] [address] PCP - General Family Practice 04/09/22 Lay Out Worker Relationship Specialty Start Date End Date Afia Figueroa CNP [address] [place] [address] PCP - General Family Medicine 04/09/22 Lay Out Worker Relationship Specialty Start Date End Date Afia Figueroa CNP [address] [place] [address] PCP - General Family Medicine 04/09/22 Lay Out Worker Relationship Specialty Start Date End Date Afia Figueroa CNP [address] [place] [address] PCP - General Family Medicine 04/09/22 Lay Out Worker Relationship Specialty Start Date End Date Afia Figueroa CNP [address] [place] [address] PCP - General Family Medicine 04/09/22 Lay Out Worker Relationship Specialty Start Date End Date Afia Figueroa CNP [address] [place] [address] PCP - General Family Medicine 04/09/22 Lay Out Worker Relationship Specialty Start Date End Date Ty Mai MD [address] [place] [phone] PCP - General [facility] 12/23/23 Afia Figueroa NP [address] [place] [phone] Nurse Practitioner [facility] 11/14/22 Lay Out Worker Relationship Specialty Start Date End Date Ty Mai MD [address] [place] [phone] PCP [facility] 12/23/23 Afia Figueroa NP [address] [place] [phone] Nurse Practitioner [facility] 11/14/22 Lay Out Worker Relationship Specialty Start Date End Date Afia Figueroa CNP [address] [place] [address] PCP [facility] 04/09/22 Lay Out Worker Relationship Specialty Start Date End Date Afia Figueroa CNP [address] [place] [address] PCP - [facility] 04/09/22 FOR RECORDS PERTAINING TO PATIENTS WHO ARE [...] BE BASED ON THE PRIMARY CLINICAL RECORDS. [facility]. provides no warranty or guarantee of the accuracy or completeness of information in this document.
[2024-08-01] MEDS: 0.9 % SODIUM CHLORIDE 1,000 ML 1000 ML IV (00:31)
[2024-08-01] MEDS: DIPHENHYDRAMINE HCL 50 MG/ML VIAL 12.5 MG IV (00:32)
[2024-08-01] MEDS: METOCLOPRAMIDE HCL 10 MG/2 ML VIAL IVP (00:32)
[2024-08-01] MEDS: KETOROLAC TROMETHAMINE 30 MG/ML VIAL IVP (00:32)
[2024-08-01] MEDS: METHYLPREDNISOLONE SOD SUCC PF 125 MG/2 ML VIAL IVP (00:32)
== END 2024-08-01 01:57 | disposition home or self-care (01) ==
PROVIDERS: Emergency Provider Emergency Medicine; PCP Nurse Practitioner
DX: G43.909 Migraine, unspecified, not intractable, without status migrainosus (principal)
CPT/HCPCS: 96361; 96374; 96375; 99284; J1200; J1885; J2765; J2919